=== PATIENT | female | born 1960 | race African-American/Black ===

== ENCOUNTER 2016-09-26 08:10 | Emergency (ER) | payer MEDICAID ==
[~2016-09-26] VITALS: Ht 167.6 cm; Wt 148.0 kg
[~2016-09-26 08:10] MED LIST: ALBU18HF2 IH; AMLO2.5T45 PO; ASPI-1035 PO; CYCL5TAB PO; DOCU-138 PO; FOLI-43 PO; HYDR-519 PO; IPRA3AMP IH; IPRA4AER IH; KEPP500 PO; LIP40 PO; LORA10TA7 PO; MELO-58 PO; MORP30TA54 PO; MORP30TA66 PO; MULT-1116 PO; OMEP20CA4 PO; PANT40TA4 PO; PHEN100C4 PO; POTA20TA75 PO
[2016-09-26] MEDS ORDERED: MORPHINE SULFATE 4 MG/ML CPJ (NOT FOR IM USE) IV STA (09:31)
[2016-09-26] MEDS ORDERED: ONDANSETRON HCL 4MG/2ML VIAL IV STA (09:31)
[2016-09-26] MEDS ORDERED: SODIUM CHLORIDE 0.9% 1,000 ML IV ONE (09:31)
[2016-09-26 09:57] LABS: BASOPHILS % 0.9 % (0.0-2.0); EOSINOPHILS % 3.7 % (0.0-5.0); HEMATOCRIT. 43.3 % (36.0-48.0); HEMOGLOBIN. 13.9 g/dL (12.0-16.0); LYMPHOCYTES % 33.8 % (20.0-50.0); MEAN CORPUSCULAR HEMOGLOBIN 27.2 pg (28.0-32.0); MEAN CORPUSCULAR HGB CONC 32.2 g/dL (31.0-37.0); MEAN CORPUSCULAR VOLUME 84.3 fL (81.0-99.0); MEAN PLATELET VOLUME 9.3 fl (7.4-10.4); MONOCYTES % 9.6 % (2.0-8.0); PLATELET 198 x1000/uL (130-400); RED BLOOD CELL COUNT 5.13 mill/uL (4.2-5.4); RED CELL DISTRIBUTION WIDTH 16.5 % (11.6-14.6); WHITE BLOOD COUNT 5.1 x1000/uL (4.5-11.0)
[2016-09-26 10:05] LABS: INR 1.1; PROTHROMBIN TIME 11.2 sec
[2016-09-26 10:14] LABS: ALANINE AMINOTRANSFERASE 20 IU/L (13-61); ALBUMIN 3.7 g/dL (3.4-5.0); ANION GAP 12; CALCIUM 8.9 mg/dL (8.5-10.1); CARBON DIOXIDE 27 mEq/L (21-32); CHLORIDE 109 mEq/L (98-107); INDEX HEMOLYSI 1 (1-3); INDEX ICTERIC 1 (1-4); INDEX LIPEMIC 1 (1-3); LIPASE 104 IU/L (73-393); PHENYTOIN 11.4 ug/mL (10-20); TROPONIN I < 0.02 ng/mL (0.00-0.04); UREA NITROGEN BLOOD 8 mg/dL (7-21); eGFR > 60 mL/min (>60)
[2016-09-26 11:11] LABS: CLARITY URINE CLEAR (CLEAR); COLOR URINE YELLOW (YELLOW); GLUCOSE URINE NEGATIVE (NEGATIVE); KETONES URINE NEGATIVE (NEGATIVE); LEUKOCYTE ESTERASE URINE NEGATIVE (NEGATIVE); NITRITE URINE POSITIVE (NEGATIVE); OCCULT BLOOD URINE NEGATIVE (NEGATIVE); PROTEIN URINE NEGATIVE (NEGATIVE); UROBILINOGEN URINE 0.2 E.U./dL (0.2-1.0)
[2016-09-26] MEDS ORDERED: LEVOFLOXACIN 500MG TABLET PO ONE (11:15)
[2016-09-26 11:27] LABS: BACTERIA URINE 3+; RBC URINE NONE SEEN /hpf (0-2); SQUAMOUS EPITHELIAL CELL URINE 2+ /lpf (RARE/1+); WBC URINE 0-2 /hpf (0-2)
[2016-09-26] MEDS ORDERED: PHENAZOPYRIDINE HCL 200MG TABLET PO ONE (11:45)
[2016-09-26 12:02] VITALS: BP 124/76
== END 2016-09-26 12:09 | disposition home or self-care (01) ==
LOC: ER 09:32
DX: N39.0 Urinary tract infection, site not specified (principal); I10 Essential (primary) hypertension; J44.9 Chronic obstructive pulmonary disease, unspecified; G40.909 Epilepsy, unspecified, not intractable, without status epilepticus; Z88.0 Allergy status to penicillin; I25.10 Atherosclerotic heart disease of native coronary artery without angina pectoris; Z90.710 Acquired absence of both cervix and uterus; Z95.0 Presence of cardiac pacemaker; Z90.49 Acquired absence of other specified parts of digestive tract; Z96.659 Presence of unspecified artificial knee joint; Z88.3 Allergy status to other anti-infective agents; Z91.018 Allergy to other foods
CPT/HCPCS: 36415; 71010; 74176; 80053; 80185; 81001; 83690; 84484; 85025; 85610; 85730; 87077; 87086; 87186; 93005; 96361; 96374; 96375; 99285; J2270; J2405; J7030; Z7610

== ENCOUNTER 2016-11-02 09:10 | Emergency (ER) | payer MEDICAID ==
[~2016-11-02] VITALS: Ht 165.1 cm; Wt 146.0 kg
[2016-11-02] MEDS ORDERED: TETANUS, DIPHTHERIA, PERTUSSIS VAC/PF 0.5ML (>7YR OLD) IM ONE (12:30)
[2016-11-02] MEDS ORDERED: BACITRACIN ZINC OINT UDPKT TOP ONE (12:30)
[2016-11-02] MEDS ORDERED: LIDOCAINE HCL 1% 20ML VIAL (Pyxis) INJ MC ONE (12:30)
[2016-11-02 12:51] LABS: BASOPHILS % 0.3 % (0.0-2.0); EOSINOPHILS % 2.9 % (0.0-5.0); HEMATOCRIT. 38.5 % (36.0-48.0); HEMOGLOBIN. 12.4 g/dL (12.0-16.0); LYMPHOCYTES % 40.6 % (20.0-50.0); MEAN CORPUSCULAR HEMOGLOBIN 26.8 pg (28.0-32.0); MEAN CORPUSCULAR HGB CONC 32.2 g/dL (31.0-37.0); MEAN CORPUSCULAR VOLUME 83.3 fL (81.0-99.0); MEAN PLATELET VOLUME 8.7 fl (7.4-10.4); MONOCYTES % 9.6 % (2.0-8.0); NEUTROPHILS % 46.6 % (40.0-76.0); PLATELET 199 x1000/uL (130-400); RED BLOOD CELL COUNT 4.62 mill/uL (4.2-5.4); RED CELL DISTRIBUTION WIDTH 16.6 % (11.6-14.6); WHITE BLOOD COUNT 5.3 x1000/uL (4.5-11.0)
[2016-11-02 12:55] VITALS: BP 123/76
== END 2016-11-02 13:31 | disposition home or self-care (01) ==
LOC: ER 10:16
DX: K64.5 Perianal venous thrombosis (principal); Z88.0 Allergy status to penicillin; Z88.1 Allergy status to other antibiotic agents; Z79.899 Other long term (current) drug therapy; Z88.8 Allergy status to other drugs, medicaments and biological substances; Z79.82 Long term (current) use of aspirin; I11.9 Hypertensive heart disease without heart failure; J44.9 Chronic obstructive pulmonary disease, unspecified; Z23 Encounter for immunization
CPT/HCPCS: 36415; 46320; 85025; 90471; 90715; 99284; J3490; Z7610; 99283

== ENCOUNTER 2016-12-09 04:01 | Emergency (ER) | payer MEDICAID ==
[~2016-12-09] VITALS: Ht 167.6 cm; Wt 147.0 kg
[2016-12-09] MEDS ORDERED: IPRATROPIUM BROMIDE (0.02%) 0.5MG/2.5ML NEB HHN STA (06:24)
[2016-12-09] MEDS ORDERED: METHYLPREDNISOLONE SOD SUCC 125 MG/2 ML VIAL IV ONE (06:30)
[2016-12-09] MEDS ORDERED: FUROSEMIDE 40MG/4ML VIAL IVP ONE (06:30)
[2016-12-09] MEDS ORDERED: IPRATROPIUM/ALBUTEROL 0.5-3(2.5)MG/3ML NEB ONE (06:44)
[2016-12-09 06:55] LABS: BASOPHILS % 0.8 % (0.0-2.0); EOSINOPHILS % 1.6 % (0.0-5.0); HEMOGLOBIN. 11.7 g/dL (12.0-16.0); LYMPHOCYTES % 27.8 % (20.0-50.0); MEAN CORPUSCULAR HEMOGLOBIN 27.2 pg (28.0-32.0); MEAN PLATELET VOLUME 8.4 fl (7.4-10.4); NEUTROPHILS % 59.8 % (40.0-76.0); PLATELET 212 x1000/uL (130-400); RED BLOOD CELL COUNT 4.28 mill/uL (4.2-5.4); RED CELL DISTRIBUTION WIDTH 16.7 % (11.6-14.6)
[2016-12-09 07:00] LABS: CHLORIDE 107 mEq/L (98-107)
[2016-12-09 07:03] LABS: PROTHROMBIN TIME 10.4 sec
[2016-12-09 07:11] LABS: CARBON DIOXIDE 28 mEq/L (21-32); PHENYTOIN 8.6 ug/mL (10-20); TROPONIN I < 0.02 ng/mL (0.00-0.04)
[2016-12-09] MEDS ORDERED: ACETAMINOPHEN 325MG TABLET PO ONE (07:15)
[2016-12-09] MEDS: ALBUTEROL (0.083%) 2.5MG/3ML NEB HHN SCH ×2 (07:24→07:55)
[2016-12-09] MEDS ORDERED: MORPHINE SULFATE 2 MG/ML CPJ (NOT FOR IM USE) IV ONE (09:15)
[2016-12-09] MEDS ORDERED: ALBUTEROL (0.083%) 2.5MG/3ML NEB HHN ONE (09:15)
[2016-12-09 10:20] VITALS: BP 90/60
== END 2016-12-09 10:24 | disposition home or self-care (01) ==
LOC: ER 04:01
DX: I11.0 Hypertensive heart disease with heart failure (principal); I50.9 Heart failure, unspecified; J44.9 Chronic obstructive pulmonary disease, unspecified; Z79.899 Other long term (current) drug therapy; Z88.0 Allergy status to penicillin; Z88.1 Allergy status to other antibiotic agents; Z91.018 Allergy to other foods; Z79.82 Long term (current) use of aspirin; Z90.49 Acquired absence of other specified parts of digestive tract; Z95.0 Presence of cardiac pacemaker
CPT/HCPCS: 36415; 71010; 80053; 80185; 83880; 84484; 85025; 85610; 93005; 94640; 96374; 96375; 99285; J1940; J2270; J2930; J7611; Z7610; J7620

== ENCOUNTER 2016-12-27 02:46 | Emergency (ER) | payer MEDICAID ==
[~2016-12-27] VITALS: Ht 167.6 cm; Wt 145.0 kg
[~2016-12-27 02:46] MED LIST changes: -ASPI-1035 PO; +ASPI-1158 PO
[2016-12-27 03:48] LABS: PROTHROMBIN TIME 10.7 sec
[2016-12-27 03:49] LABS: BASOPHILS % 1.2 % (0.0-2.0); EOSINOPHILS % 1.8 % (0.0-5.0); HEMATOCRIT. 41.4 % (36.0-48.0); HEMOGLOBIN. 13.7 g/dL (12.0-16.0); LYMPHOCYTES % 36.1 % (20.0-50.0); MEAN CORPUSCULAR HEMOGLOBIN 27.9 pg (28.0-32.0); MEAN CORPUSCULAR VOLUME 84.6 fL (81.0-99.0); MEAN PLATELET VOLUME 8.9 fl (7.4-10.4); MONOCYTES % 7.7 % (2.0-8.0); NEUTROPHILS % 53.2 % (40.0-76.0); PLATELET 219 x1000/uL (130-400); RED BLOOD CELL COUNT 4.89 mill/uL (4.2-5.4); RED CELL DISTRIBUTION WIDTH 16.5 % (11.6-14.6)
[2016-12-27 03:55] LABS: CARBON DIOXIDE 24 mEq/L (21-32); CHLORIDE 110 mEq/L (98-107); TROPONIN I < 0.02 ng/mL (0.00-0.04)
[2016-12-27] MEDS ORDERED: IBUPROFEN 600MG TABLET PO ONE (04:45)
[2016-12-27 08:59] VITALS: BP 130/85
== END 2016-12-27 09:01 | disposition home or self-care (01) ==
LOC: ER 02:46
DX: R07.89 Other chest pain (principal); I50.9 Heart failure, unspecified; J44.9 Chronic obstructive pulmonary disease, unspecified; I10 Essential (primary) hypertension; Z90.710 Acquired absence of both cervix and uterus; Z96.659 Presence of unspecified artificial knee joint; Z90.49 Acquired absence of other specified parts of digestive tract; Z95.810 Presence of automatic (implantable) cardiac defibrillator; Z88.3 Allergy status to other anti-infective agents; Z88.0 Allergy status to penicillin; Z91.018 Allergy to other foods
CPT/HCPCS: 36415; 71010; 80053; 83880; 84484; 85025; 85610; 93005; 99285; Z7610

== ENCOUNTER 2017-01-30 05:05 | Emergency (ER) | payer MEDICAID ==
[~2017-01-30] VITALS: Ht 167.6 cm; Wt 143.0 kg
[~2017-01-30 05:05] MED LIST changes: -IPRA3AMP IH; +IPRA3AMP9 IH; +LEVO500T2 PO; -MELO-58 PO; +METH4TAB17 PO; -MORP30TA66 PO; +POTA20TA12 PO; -POTA20TA75 PO
[2017-01-30] MEDS ORDERED: MORPHINE SULFATE 10 MG/ML CPJ IM ONE (05:30)
[2017-01-30] MEDS ORDERED: KETOROLAC 30MG/ML VIAL IM ONE (05:30)
[2017-01-30] MEDS ORDERED: ONDANSETRON HCL 4MG/2ML VIAL IM ONE (05:30)
[2017-01-30 06:00] VITALS: BP 139/69
[2017-02-28] MEDS ORDERED: AMLO2.5T45 PO (14:34)
[2017-02-28] MEDS ORDERED: ALBU18HF2 IH (14:34)
[2017-02-28] MEDS ORDERED: PHEN100C4 PO (14:34)
[2017-02-28] MEDS ORDERED: IPRA3AMP9 IH (14:34)
[2017-02-28] MEDS ORDERED: KEPP500 PO (14:34)
[2017-02-28] MEDS ORDERED: METH4TAB17 PO (14:34)
[2017-02-28] MEDS ORDERED: LIP40 PO (14:34)
[2017-07-16] MEDS ORDERED: P20 PO (11:49)
[2017-07-16] MEDS ORDERED: GUAI-858 PO (11:49)
[2017-07-16] MEDS ORDERED: AZIT500T2 PO (11:49)
== END 2017-01-30 07:06 | disposition home or self-care (01) ==
LOC: ER 05:05
DX: R51 Headache (principal); I11.0 Hypertensive heart disease with heart failure; I50.9 Heart failure, unspecified; I25.10 Atherosclerotic heart disease of native coronary artery without angina pectoris; Z72.0 Tobacco use; Z88.0 Allergy status to penicillin; Z88.1 Allergy status to other antibiotic agents; Z88.3 Allergy status to other anti-infective agents; Z91.018 Allergy to other foods; Z91.048 Other nonmedicinal substance allergy status; Z79.899 Other long term (current) drug therapy; Z98.890 Other specified postprocedural states
CPT/HCPCS: 96372; 99284; J1885; J2270; J2405; Z7610

== ENCOUNTER 2017-02-05 10:20 | Emergency (ER) | payer MEDICAID ==
[~2017-02-05] VITALS: Ht 167.6 cm; Wt 147.0 kg
[~2017-02-05 10:20] MED LIST changes: +IPRA3AMP IH; -IPRA3AMP9 IH; +LEVO500T15 PO; -LEVO500T2 PO; -POTA20TA12 PO; +POTA20TA75 PO
[2017-02-05] MEDS ORDERED: SODIUM CHLORIDE 0.9% 1,000 ML IV ONE (10:46)
[2017-02-05] MEDS ORDERED: ONDANSETRON HCL 4MG/2ML VIAL IV ONE (11:00)
[2017-02-05] MEDS ORDERED: MORPHINE SULFATE 2 MG/ML CPJ (NOT FOR IM USE) IV ONE (11:00)
[2017-02-05 11:04] LABS: EOSINOPHILS % 4.3 % (0.0-5.0); HEMATOCRIT. 37.5 % (36.0-48.0); HEMOGLOBIN. 12.3 g/dL (12.0-16.0); MEAN CORPUSCULAR HEMOGLOBIN 27.9 pg (28.0-32.0); MEAN CORPUSCULAR VOLUME 85.1 fL (81.0-99.0); NEUTROPHILS % 47.7 % (40.0-76.0); PLATELET 185 x1000/uL (130-400); RED BLOOD CELL COUNT 4.41 mill/uL (4.2-5.4); RED CELL DISTRIBUTION WIDTH 16.7 % (11.6-14.6)
[2017-02-05 11:10] LABS: CHLORIDE 108 mEq/L (98-107)
[2017-02-05 11:16] LABS: CARBON DIOXIDE 25 mEq/L (21-32)
[2017-02-05] MEDS ORDERED: MORPHINE SULFATE 4 MG/ML CPJ (NOT FOR IM USE) IV ONE (13:30)
[2017-02-05 13:45] VITALS: BP 112/55
== END 2017-02-05 15:04 | disposition home or self-care (01) ==
LOC: ER 10:20
DX: R51 Headache (principal); I11.0 Hypertensive heart disease with heart failure; I50.9 Heart failure, unspecified; J44.9 Chronic obstructive pulmonary disease, unspecified; Z86.79 Personal history of other diseases of the circulatory system; Z88.0 Allergy status to penicillin; Z88.1 Allergy status to other antibiotic agents; Z91.048 Other nonmedicinal substance allergy status; Z90.49 Acquired absence of other specified parts of digestive tract; Z90.710 Acquired absence of both cervix and uterus; Z96.659 Presence of unspecified artificial knee joint
CPT/HCPCS: 36415; 70450; 80048; 85025; 96361; 96374; 96375; 96376; 99285; J2270; J2405; J7030; Z7610

== ENCOUNTER 2017-02-10 08:06 | Emergency (ER) | payer MEDICAID ==
[~2017-02-10] VITALS: Ht 167.6 cm; Wt 148.0 kg
[2017-02-10] MEDS ORDERED: MORPHINE SULFATE 4 MG/ML CPJ (NOT FOR IM USE) IV ONE (10:30)
[2017-02-10] MEDS ORDERED: MORPHINE SULFATE 10 MG/ML CPJ IM ONE (10:30)
[2017-02-10] MEDS ORDERED: ONDANSETRON HCL 4MG/2ML VIAL IV ONE (10:30)
[2017-02-10 13:00] VITALS: BP 122/73
== END 2017-02-10 13:41 | disposition home or self-care (01) ==
LOC: ER 08:06
DX: R51 Headache (principal); I50.9 Heart failure, unspecified; I11.0 Hypertensive heart disease with heart failure; E78.00 Pure hypercholesterolemia, unspecified; Z95.0 Presence of cardiac pacemaker; Z90.49 Acquired absence of other specified parts of digestive tract; Z90.710 Acquired absence of both cervix and uterus; Z96.659 Presence of unspecified artificial knee joint; Z88.0 Allergy status to penicillin; Z79.82 Long term (current) use of aspirin; Z88.1 Allergy status to other antibiotic agents; Z91.018 Allergy to other foods; Z91.048 Other nonmedicinal substance allergy status
CPT/HCPCS: 70450; 96374; 96375; 99284; J2270; J2405; J7040; Z7610

== ENCOUNTER 2017-04-04 08:54 | Inpatient (IN) | payer MEDICAID ==
[2017-04-04] VITALS (7 sets, daily range): BP systolic 97–149; BP diastolic 60–86
[~2017-04-04] VITALS: Ht 167.6 cm; Wt 147.6 kg
[~2017-04-04 08:54] MED LIST changes: -IPRA3AMP IH; +IPRA3AMP9 IH; -LEVO500T15 PO; +POTA20TA12 PO; -POTA20TA75 PO
[2017-04-04] MEDS ORDERED: PREDNISONE 20MG TABLET PO STA (10:12)
[2017-04-04] MEDS ORDERED: MORPHINE SULFATE 10 MG/ML CPJ IM ONE (10:15)
[2017-04-04] MEDS ORDERED: IPRATROPIUM/ALBUTEROL 0.5-3(2.5)MG/3ML NEB HHN ONE ×2 (10:30→12:30)
[2017-04-04 10:49] LABS: BASOPHILS % 0.9 % (0.0-2.0); EOSINOPHILS % 1.8 % (0.0-5.0); HEMATOCRIT. 40.7 % (36.0-48.0); HEMOGLOBIN. 13.3 g/dL (12.0-16.0); MEAN CORPUSCULAR HEMOGLOBIN 27.9 pg (28.0-32.0); MEAN CORPUSCULAR VOLUME 85.2 fL (81.0-99.0); MEAN PLATELET VOLUME 9.1 fl (7.4-10.4); MONOCYTES % 7.7 % (2.0-8.0); NEUTROPHILS % 57.6 % (40.0-76.0); PLATELET 214 x1000/uL (130-400); RED BLOOD CELL COUNT 4.78 mill/uL (4.2-5.4); RED CELL DISTRIBUTION WIDTH 15.6 % (11.6-14.6)
[2017-04-04 11:00] LABS: D-DIMER 0.98 mg/L FEU (<0.50); INR 1.1
[2017-04-04 11:06] LABS: CARBON DIOXIDE 27 mEq/L (21-32); CHLORIDE 111 mEq/L (98-107); TROPONIN I 0.04 ng/mL (0.00-0.04)
[2017-04-04] MEDS ORDERED: FUROSEMIDE 40MG/4ML VIAL IVP ONE (12:30)
[2017-04-04] MEDS ORDERED: SODIUM BICARBONATE 4.2% 5 MEQ/10 ML DISP.SYRIN IV ONE (12:43)
[2017-04-04] MEDS ORDERED: LIDOCAINE HCL 1% 20ML VIAL (Pyxis) INJ ONE (12:43)
[2017-04-04] MEDS ORDERED: MORPHINE SULFATE 4 MG/ML CPJ (NOT FOR IM USE) IV ONE (13:15)
[2017-04-04] MEDS ORDERED: ASPIRIN 81MG EC TABLET PO NR (13:15)
[2017-04-04] MEDS ORDERED: DOCU-138 PO (14:43)
[2017-04-04] MEDS ORDERED: GUAIFENESIN 200MG/10ML SUGAR FREE UDC PO PRN (15:00)
[2017-04-04] MEDS ORDERED: MAGNESIUM/ALUMINUM HYDROXIDE/SIMETHICONE 30ML UDC PO PRN (15:00)
[2017-04-04] MEDS ORDERED: CLONIDINE 0.1MG TABLET PO PRN (15:00)
[2017-04-04] MEDS ORDERED: DIPHENHYDRAMINE 50MG/ML VIAL IV PRN (15:00)
[2017-04-04] MEDS ORDERED: IPRATROPIUM/ALBUTEROL 0.5-3(2.5)MG/3ML NEB INH PRN (15:00)
[2017-04-04] MEDS ORDERED: ACETAMINOPHEN 325MG TABLET PO PRN (15:00)
[2017-04-04] MEDS ORDERED: ONDANSETRON HCL 4MG/2ML VIAL IV PRN (15:00)
[2017-04-04] MEDS: DOCUSATE SODIUM 250MG CAPSULE PO SCH (16:25)
[2017-04-04] MEDS: LEVETIRACETAM 500MG TABLET PO SCH (16:25)
[2017-04-04] MEDS: PHENYTOIN SODIUM EXTENDED 100MG CAPSULE PO SCH (16:26)
[2017-04-04] MEDS: FUROSEMIDE 40MG/4ML VIAL IVP SCH (16:27)
[2017-04-04] MEDS: ENOXAPARIN 40MG/0.4ML SYR SUBCUT SCH (16:27)
[2017-04-04] MEDS: BUDESONIDE 0.5MG/2ML NEB HHN SCH ×2 (17:00→21:12)
[2017-04-04] MEDS ORDERED: MORPHINE SULFATE 30MG TABLET SR PO SCH (17:00)
[2017-04-04] MEDS: IPRATROPIUM/ALBUTEROL 0.5-3(2.5)MG/3ML NEB HHN SCH ×2 (17:00→21:12)
[2017-04-04 18:55] LABS: CLARITY URINE CLEAR (CLEAR); COLOR URINE YELLOW (YELLOW); GLUCOSE URINE NEGATIVE (NEGATIVE); KETONES URINE NEGATIVE (NEGATIVE); LEUKOCYTE ESTERASE URINE NEGATIVE (NEGATIVE); NITRITE URINE NEGATIVE (NEGATIVE); OCCULT BLOOD URINE NEGATIVE (NEGATIVE); PROTEIN URINE NEGATIVE (NEGATIVE); SPECIFIC GRAVITY URINE 1.013 (1.005-1.030); UROBILINOGEN URINE 0.2 E.U./dL (0.2-1.0)
[2017-04-04 19:08] LABS: *AMPHETAMINES SCREEN URINE NEGATIVE (NEGATIVE); *BARBITURATES SCREEN URINE NEGATIVE (NEGATIVE); *BENZODIAZEPINES SCREEN URINE NEGATIVE (NEGATIVE); *COCAINE SCREEN URINE NEGATIVE (NEGATIVE); CANNABINOID URINE SCREEN NEGATIVE (NEGATIVE); METHADONE URINE SCREEN NEGATIVE (NEGATIVE); OPIATES URINE SCREEN PRESUMTIVE POSITIVE (NEGATIVE); PHENCYCLIDINE URINE SCREEN NEGATIVE (NEGATIVE)
[2017-04-04] MEDS ORDERED: ATORVASTATIN CALCIUM 40MG TABLET PO SCH ×2 (21:00)
[2017-04-04] MEDS: SODIUM CHLORIDE 0.9% INJ 3ML FLUSH IVF SCH (22:08)
[2017-04-04] MEDS: MORPHINE SULFATE 30MG TABLET SR PO SCH (22:20)
[2017-04-05] VITALS (10 sets, daily range): BP systolic 93–144; BP diastolic 35–95
[2017-04-05] MEDS: IPRATROPIUM/ALBUTEROL 0.5-3(2.5)MG/3ML NEB HHN SCH ×4 (01:15→11:37)
[2017-04-05] MEDS: FUROSEMIDE 40MG/4ML VIAL IVP SCH (06:15)
[2017-04-05] MEDS: SODIUM CHLORIDE 0.9% INJ 3ML FLUSH IVF SCH ×2 (06:15→14:30)
[2017-04-05] MEDS: ENOXAPARIN 40MG/0.4ML SYR SUBCUT SCH (06:16)
[2017-04-05] MEDS ORDERED: OMEPRAZOLE 20MG CAPSULE EXTENDED RELEASE PO SCH ×2 (06:50→09:00)
[2017-04-05] MEDS: BUDESONIDE 0.5MG/2ML NEB HHN SCH (07:32)
[2017-04-05 07:38] LABS: CARBON DIOXIDE 28 mEq/L (21-32); CHLORIDE 107 mEq/L (98-107); TROPONIN I 0.02 ng/mL (0.00-0.04)
[2017-04-05 08:41] LABS: BASOPHILS % 0.7 % (0.0-2.0); EOSINOPHILS % 0.8 % (0.0-5.0); HEMATOCRIT. 37.9 % (36.0-48.0); HEMOGLOBIN. 12.2 g/dL (12.0-16.0); LYMPHOCYTES % 36.3 % (20.0-50.0); MEAN CORPUSCULAR HEMOGLOBIN 27.7 pg (28.0-32.0); MEAN CORPUSCULAR VOLUME 86.2 fL (81.0-99.0); MEAN PLATELET VOLUME 9.5 fl (7.4-10.4); MONOCYTES % 9.7 % (2.0-8.0); NEUTROPHILS % 52.5 % (40.0-76.0); PLATELET 202 x1000/uL (130-400); RED BLOOD CELL COUNT 4.39 mill/uL (4.2-5.4)
[2017-04-05] MEDS ORDERED: AMLODIPINE 2.5MG TABLET PO SCH ×2 (09:00)
[2017-04-05] MEDS ORDERED: POTASSIUM CHLORIDE 20MEQ TABLET SR PO SCH (09:00)
[2017-04-05] MEDS ORDERED: FOLIC ACID 1MG TABLET PO SCH (09:00)
[2017-04-05] MEDS ORDERED: ASPIRIN 81MG EC TABLET PO SCH (09:00)
[2017-04-05] MEDS ORDERED: LORATADINE 10MG TABLET PO SCH (09:00)
[2017-04-05] MEDS: LEVETIRACETAM 500MG TABLET PO SCH (09:06)
[2017-04-05] MEDS: DOCUSATE SODIUM 250MG CAPSULE PO SCH (09:06)
[2017-04-05] MEDS: PHENYTOIN SODIUM EXTENDED 100MG CAPSULE PO SCH (09:06)
[2017-04-05] MEDS: MORPHINE SULFATE 30MG TABLET SR PO SCH (09:07)
[2017-04-05] MEDS ORDERED: SPIRONOLACTONE 25MG TABLET PO SCH (10:00)
[2017-04-05] MEDS ORDERED: METHYLPREDNISOLONE SOD SUCC 125 MG/2 ML VIAL IV SCH (14:00)
[2017-04-05] MEDS ORDERED: FUROSEMIDE 40MG/4ML VIAL IVP SCH (17:15)
== END 2017-04-05 14:45 | disposition short-term general hospital (02) | DRG 133 ==
LOC: ER 09:48 → ENRESERV 12:52 → 3WST 12:55 → EDBEDREQTM 13:00 → EDBEDREQ 13:00
PROVIDERS: ADMIT Internal Medicine; ATTEND Internal Medicine
PROC: 02HV33Z Insertion of Infusion Device into Superior Vena Cava, Percutaneous Approach (ICD-10-PCS; principal; 2017-04-04)
PROC: B548ZZA Ultrasonography of Superior Vena Cava, Guidance (ICD-10-PCS; 2017-04-04)
DX: J96.00 Acute respiratory failure, unspecified whether with hypoxia or hypercapnia (principal); I50.43 Acute on chronic combined systolic (congestive) and diastolic (congestive) heart failure; I67.1 Cerebral aneurysm, nonruptured; I42.0 Dilated cardiomyopathy; Z68.43 Body mass index [BMI] 50.0-59.9, adult; J44.1 Chronic obstructive pulmonary disease with (acute) exacerbation; E66.01 Morbid (severe) obesity due to excess calories; I11.0 Hypertensive heart disease with heart failure; Z96.653 Presence of artificial knee joint, bilateral; K21.9 Gastro-esophageal reflux disease without esophagitis; I25.10 Atherosclerotic heart disease of native coronary artery without angina pectoris; G47.33 Obstructive sleep apnea (adult) (pediatric); E78.5 Hyperlipidemia, unspecified; E78.00 Pure hypercholesterolemia, unspecified; Z82.49 Family history of ischemic heart disease and other diseases of the circulatory system; Z83.3 Family history of diabetes mellitus; Z86.73 Personal history of transient ischemic attack (TIA), and cerebral infarction without residual deficits; Z87.891 Personal history of nicotine dependence; Z90.710 Acquired absence of both cervix and uterus; Z95.810 Presence of automatic (implantable) cardiac defibrillator; Z88.0 Allergy status to penicillin; Z88.1 Allergy status to other antibiotic agents; Z79.51 Long term (current) use of inhaled steroids; Z79.899 Other long term (current) drug therapy; Z79.82 Long term (current) use of aspirin; Z90.49 Acquired absence of other specified parts of digestive tract
CPT/HCPCS: 36415; 36569; 71010; 76937; 78582; 80048; 80053; 80305; 81003; 83605; 83735; 83880; 84484; 85025; 85379; 85610; 85730; 87040; 93005; 93970; 94640; 94660; 94664; 96374; 96375; 96376; 99285; A9558; C1725; J1650; J1940; J2270; J2930; J3490; J7512; J7620; J7626

== ENCOUNTER 2017-04-16 08:53 | Inpatient (IN) | payer MEDICAID ==
[~2017-04-16] VITALS: Ht 168.9 cm; Wt 141.1 kg
[~2017-04-16 08:53] MED LIST changes: -HYDR-519 PO; -METH4TAB17 PO; -PANT40TA4 PO
[2017-04-16] MEDS ORDERED: METHYLPREDNISOLONE SOD SUCC 125 MG/2 ML VIAL IV STA (09:48)
[2017-04-16] MEDS ORDERED: IPRATROPIUM/ALBUTEROL 0.5-3(2.5)MG/3ML NEB HHN ONE (10:00)
[2017-04-16 10:31] LABS: BASOPHILS % 1.1 % (0.0-2.0); EOSINOPHILS % 2.3 % (0.0-5.0); HEMATOCRIT. 39.6 % (36.0-48.0); HEMOGLOBIN. 12.9 g/dL (12.0-16.0); LYMPHOCYTES % 29.6 % (20.0-50.0); MEAN CORPUSCULAR VOLUME 85.8 fL (81.0-99.0); MEAN PLATELET VOLUME 9.2 fl (7.4-10.4); MONOCYTES % 8.4 % (2.0-8.0); NEUTROPHILS % 58.6 % (40.0-76.0); PLATELET 249 x1000/uL (130-400); RED BLOOD CELL COUNT 4.62 mill/uL (4.2-5.4); RED CELL DISTRIBUTION WIDTH 15.1 % (11.6-14.6)
[2017-04-16 10:35] LABS: PROTHROMBIN TIME 10.7 sec (9.4-11.6)
[2017-04-16] MEDS ORDERED: IPRATROPIUM/ALBUTEROL 0.5-3(2.5)MG/3ML NEB ONE ×2 (10:43→12:19)
[2017-04-16 10:44] LABS: CARBON DIOXIDE 23 mEq/L (21-32); CHLORIDE 112 mEq/L (98-107); TROPONIN I 0.03 ng/mL (0.00-0.04)
[2017-04-16] MEDS ORDERED: ONDANSETRON HCL 4MG/2ML VIAL IV ONE (11:30)
[2017-04-16] MEDS ORDERED: MORPHINE SULFATE 4 MG/ML CPJ (NOT FOR IM USE) IV ONE (11:30)
[2017-04-16] MEDS ORDERED: CLONIDINE 0.1MG TABLET PO PRN (14:15)
[2017-04-16] MEDS ORDERED: DIPHENHYDRAMINE 50MG/ML VIAL IV PRN (14:15)
[2017-04-16] MEDS ORDERED: GUAIFENESIN 200MG/10ML SUGAR FREE UDC PO PRN (14:15)
[2017-04-16] MEDS ORDERED: ACETAMINOPHEN 325MG TABLET PO PRN (14:15)
[2017-04-16] MEDS ORDERED: ONDANSETRON HCL 4MG/2ML VIAL IV PRN (14:15)
[2017-04-16] MEDS ORDERED: MAGNESIUM/ALUMINUM HYDROXIDE/SIMETHICONE 30ML UDC PO PRN (14:15)
[2017-04-16 14:26] VITALS: BP 116/82
[2017-04-16] MEDS ORDERED: IPRATROPIUM/ALBUTEROL 0.5-3(2.5)MG/3ML NEB INH PRN (15:00)
[2017-04-16] MEDS ORDERED: ALBU18HF2 IH (15:45)
[2017-04-16 16:30] VITALS: BP 100/64
[2017-04-16] MEDS: FUROSEMIDE 40MG/4ML VIAL IV SCH (16:43)
[2017-04-16] MEDS: ENOXAPARIN 40MG/0.4ML SYR SUBCUT SCH ×2 (16:44→21:23)
[2017-04-16] MEDS: METHYLPREDNISOLONE SOD SUCC 40 MG/ML VIAL IV SCH (16:44)
[2017-04-16] MEDS: HYDROCODONE/ACETAMINOPHEN 5/325MG TABLET PO PRN ×2 (16:54→21:22)
[2017-04-16] MEDS ORDERED: IPRATROPIUM/ALBUTEROL 0.5-3(2.5)MG/3ML NEB HHN PRN (17:00)
[2017-04-16] MEDS ORDERED: ALBUTEROL 6.7GM HFA INHALER INH SCH (17:00)
[2017-04-16] MEDS ORDERED: CYCLOBENZAPRINE HCL 5 MG PO SCH (17:00)
[2017-04-16] MEDS: IPRATROPIUM/ALBUTEROL 0.5-3(2.5)MG/3ML NEB INH SCH ×3 (17:44→21:54)
[2017-04-16] MEDS: LEVETIRACETAM 500MG TABLET PO SCH (18:18)
[2017-04-16] MEDS: DOCUSATE SODIUM 250MG CAPSULE PO SCH (18:18)
[2017-04-16] MEDS: CYCLOBENZAPRINE 10MG TABLET PO SCH (18:19)
[2017-04-16] MEDS: PHENYTOIN SODIUM EXTENDED 100MG CAPSULE PO SCH (18:19)
[2017-04-16] MEDS: MORPHINE SULFATE 30MG TABLET SR PO SCH (18:24)
[2017-04-16 20:00] VITALS: BP 109/60
[2017-04-16] MEDS ORDERED: ALBUTEROL (0.083%) 2.5MG/3ML NEB HHN SCH (20:00)
[2017-04-16] MEDS ORDERED: ATORVASTATIN CALCIUM 40MG TABLET PO SCH (21:00)
[2017-04-16 23:23] LABS: CREATINE KINASE MB FRACTION 1.1 ng/mL (0.5-3.6); TROPONIN I 0.02 ng/mL (0.00-0.04)
[2017-04-17] VITALS: BP 106/66
[2017-04-17] MEDS: METHYLPREDNISOLONE SOD SUCC 40 MG/ML VIAL IV SCH ×3 (00:44→16:08)
[2017-04-17 04:00] VITALS: BP 117/69
[2017-04-17] MEDS: IPRATROPIUM/ALBUTEROL 0.5-3(2.5)MG/3ML NEB INH SCH ×4 (04:12→15:30)
[2017-04-17] MEDS: MORPHINE SULFATE 30MG TABLET SR PO SCH ×2 (05:49→16:09)
[2017-04-17] MEDS ORDERED: OMEPRAZOLE 20MG CAPSULE EXTENDED RELEASE PO SCH (06:45)
[2017-04-17 07:36] LABS: BASOPHILS % 0.2 % (0.0-2.0); HEMATOCRIT. 35.3 % (36.0-48.0); HEMOGLOBIN. 11.5 g/dL (12.0-16.0); LYMPHOCYTES % 13.3 % (20.0-50.0); MEAN CORPUSCULAR HEMOGLOBIN 27.8 pg (28.0-32.0); MEAN CORPUSCULAR VOLUME 85.7 fL (81.0-99.0); MEAN PLATELET VOLUME 9.2 fl (7.4-10.4); MONOCYTES % 5.2 % (2.0-8.0); NEUTROPHILS % 81.3 % (40.0-76.0); PLATELET 220 x1000/uL (130-400); RED BLOOD CELL COUNT 4.12 mill/uL (4.2-5.4); RED CELL DISTRIBUTION WIDTH 15.5 % (11.6-14.6)
[2017-04-17 08:00] VITALS: BP 104/55
[2017-04-17 08:03] LABS: CARBON DIOXIDE 26 mEq/L (21-32); CHLORIDE 107 mEq/L (98-107); CREATINE KINASE 78 IU/L (26-192); HDL CHOLESTEROL 64 mg/dL (40-59); LDL CHOLESTEROL 120 mg/dL (5-100); TROPONIN I < 0.02 ng/mL (0.00-0.04)
[2017-04-17] MEDS ORDERED: POTASSIUM CHLORIDE 20MEQ TABLET SR PO SCH (09:00)
[2017-04-17] MEDS ORDERED: AMLODIPINE 2.5MG TABLET PO SCH (09:00)
[2017-04-17] MEDS ORDERED: MEDICATION NOT ON FORMULARY EA (Multivitamin (Multi-Vitamin Daily) 1 EACH) PO SCH (09:00)
[2017-04-17] MEDS: DOCUSATE SODIUM 250MG CAPSULE PO SCH ×2 (09:00→16:09)
[2017-04-17] MEDS ORDERED: MULTIVITAMINS,THER W-MINERALS TABLET PO SCH (09:00)
[2017-04-17] MEDS ORDERED: ASPIRIN 81MG EC TABLET PO SCH (09:00)
[2017-04-17] MEDS ORDERED: LORATADINE 10MG TABLET PO SCH (09:00)
[2017-04-17] MEDS ORDERED: FOLIC ACID 1MG TABLET PO SCH (09:00)
[2017-04-17] MEDS: PHENYTOIN SODIUM EXTENDED 100MG CAPSULE PO SCH ×2 (09:05→16:08)
[2017-04-17] MEDS: ENOXAPARIN 40MG/0.4ML SYR SUBCUT SCH (09:05)
[2017-04-17] MEDS: FUROSEMIDE 40MG/4ML VIAL IV SCH (09:05)
[2017-04-17] MEDS: LEVETIRACETAM 500MG TABLET PO SCH ×2 (09:06→16:08)
[2017-04-17] MEDS: CYCLOBENZAPRINE 10MG TABLET PO SCH ×2 (09:06→16:09)
[2017-04-17] MEDS: DOCUSATE SODIUM 100MG CAPSULE PO PRN ×3 (09:06→16:08)
[2017-04-17 12:00] VITALS: BP 94/58
[2017-04-17] MEDS ORDERED: METOLAZONE 2.5MG TABLET PO NR (12:45)
[2017-04-17] MEDS: HYDROCODONE/ACETAMINOPHEN 5/325MG TABLET PO PRN (13:48)
[2017-04-17 14:47] VITALS: BP 94/58
[2017-04-17 16:00] VITALS: BP 103/72
[2017-04-17] MEDS ORDERED: FUROSEMIDE 40MG/4ML VIAL IV SCH (17:00)
== END 2017-04-17 18:58 | disposition short-term general hospital (02) | DRG 140 ==
LOC: ER 09:06 → 5WST 12:05 → ENRESERV 12:25
PROVIDERS: ADMIT Internal Medicine; ATTEND Internal Medicine
PROC: 02HV33Z Insertion of Infusion Device into Superior Vena Cava, Percutaneous Approach (ICD-10-PCS; principal; 2017-04-16)
PROC: B548ZZA Ultrasonography of Superior Vena Cava, Guidance (ICD-10-PCS; 2017-04-16)
DX: J44.1 Chronic obstructive pulmonary disease with (acute) exacerbation (principal); I50.43 Acute on chronic combined systolic (congestive) and diastolic (congestive) heart failure; E87.2 Acidosis; I42.0 Dilated cardiomyopathy; E87.8 Other disorders of electrolyte and fluid balance, not elsewhere classified; Z68.42 Body mass index [BMI] 45.0-49.9, adult; I11.0 Hypertensive heart disease with heart failure; E66.01 Morbid (severe) obesity due to excess calories; E78.00 Pure hypercholesterolemia, unspecified; E78.5 Hyperlipidemia, unspecified; G40.909 Epilepsy, unspecified, not intractable, without status epilepticus; G47.33 Obstructive sleep apnea (adult) (pediatric); I25.10 Atherosclerotic heart disease of native coronary artery without angina pectoris; I49.3 Ventricular premature depolarization; Z96.651 Presence of right artificial knee joint; K21.9 Gastro-esophageal reflux disease without esophagitis; Z79.82 Long term (current) use of aspirin; Z79.899 Other long term (current) drug therapy; Z87.891 Personal history of nicotine dependence; Z90.710 Acquired absence of both cervix and uterus; Z95.810 Presence of automatic (implantable) cardiac defibrillator; Z90.49 Acquired absence of other specified parts of digestive tract; Z88.1 Allergy status to other antibiotic agents; Z88.0 Allergy status to penicillin; Z91.018 Allergy to other foods; Z91.048 Other nonmedicinal substance allergy status; Z91.09 Other allergy status, other than to drugs and biological substances; Z86.73 Personal history of transient ischemic attack (TIA), and cerebral infarction without residual deficits
CPT/HCPCS: 36415; 36569; 71010; 76937; 80053; 80061; 82550; 82553; 83605; 83690; 84439; 84443; 84484; 85025; 85610; 87040; 93005; 93970; 94640; 94664; 96374; 96375; 99285; C1725; J1650; J1940; J2270; J2405; J2920; J2930; J7620

== ENCOUNTER 2017-05-03 05:56 | Emergency (ER) | payer MEDICAID ==
[~2017-05-03] VITALS: Ht 160 cm; Wt 142.0 kg
[2017-05-03] MEDS ORDERED: IPRATROPIUM BROMIDE (0.02%) 0.5MG/2.5ML NEB HHN STA (07:20)
[2017-05-03] MEDS ORDERED: ALBUTEROL (0.083%) 2.5MG/3ML NEB HHN STA (07:20)
[2017-05-03] MEDS ORDERED: KETOROLAC 60MG/2ML VIAL IM STA (07:20)
[2017-05-03] MEDS ORDERED: PREDNISONE 20MG TABLET PO STA (07:20)
[2017-05-03] MEDS ORDERED: HYDROCODONE/ACETAMINOPHEN 5/325MG TABLET PO ONE (07:30)
[2017-05-03 07:39] LABS: BASOPHILS % 0.9 % (0.0-2.0); EOSINOPHILS % 4.2 % (0.0-5.0); HEMATOCRIT. 34.8 % (36.0-48.0); HEMOGLOBIN. 11.5 g/dL (12.0-16.0); LYMPHOCYTES % 33.7 % (20.0-50.0); MEAN CORPUSCULAR HEMOGLOBIN 28.4 pg (28.0-32.0); MEAN CORPUSCULAR VOLUME 85.8 fL (81.0-99.0); MEAN PLATELET VOLUME 8.2 fl (7.4-10.4); MONOCYTES % 11.6 % (2.0-8.0); NEUTROPHILS % 49.6 % (40.0-76.0); PLATELET 221 x1000/uL (130-400); RED BLOOD CELL COUNT 4.06 mill/uL (4.2-5.4); RED CELL DISTRIBUTION WIDTH 16.1 % (11.6-14.6)
[2017-05-03 07:45] LABS: CHLORIDE 110 mEq/L (98-107)
[2017-05-03 07:55] LABS: CARBON DIOXIDE 29 mEq/L (21-32); TROPONIN I 0.03 ng/mL (0.00-0.04)
[2017-05-03 11:42] VITALS: BP 122/75
== END 2017-05-03 11:48 | disposition home or self-care (01) ==
LOC: ER 05:56
DX: I50.9 Heart failure, unspecified (principal); J44.9 Chronic obstructive pulmonary disease, unspecified; Z79.82 Long term (current) use of aspirin; Z88.0 Allergy status to penicillin; Z88.1 Allergy status to other antibiotic agents; Z91.018 Allergy to other foods
CPT/HCPCS: 36415; 71010; 80048; 83880; 84484; 85025; 93005; 94640; 96372; 99285; J1885; J7512; J7611; Z7610

== ENCOUNTER 2017-06-12 06:46 | Emergency (ER) | payer MEDICAID ==
[~2017-06-12] VITALS: Ht 167.6 cm; Wt 142.0 kg
[2017-06-12] MEDS ORDERED: MORPHINE SULFATE 4 MG/ML CPJ (NOT FOR IM USE) IV STA (08:02)
[2017-06-12] MEDS ORDERED: ONDANSETRON HCL 4MG/2ML VIAL IV STA (08:02)
[2017-06-12] MEDS ORDERED: SODIUM CHLORIDE 0.9% 1,000 ML IV ONE (08:02)
[2017-06-12 08:35] LABS: BASOPHILS % 1.1 % (0.0-2.0); EOSINOPHILS % 1.1 % (0.0-5.0); HEMATOCRIT. 46.7 % (36.0-48.0); HEMOGLOBIN. 14.9 g/dL (12.0-16.0); LYMPHOCYTES % 24.5 % (20.0-50.0); MEAN CORPUSCULAR HEMOGLOBIN 27.5 pg (28.0-32.0); MEAN PLATELET VOLUME 9.3 fl (7.4-10.4); MONOCYTES % 8.3 % (2.0-8.0); PLATELET 252 x1000/uL (130-400); RED BLOOD CELL COUNT 5.42 mill/uL (4.2-5.4); RED CELL DISTRIBUTION WIDTH 16.4 % (11.6-14.6)
[2017-06-12 08:41] LABS: CHLORIDE 111 mEq/L (98-107)
[2017-06-12 08:43] LABS: INR 1.1; PROTHROMBIN TIME 11.2 sec (9.4-11.6)
[2017-06-12] MEDS ORDERED: MORPHINE SULFATE 10 MG/ML CPJ IV NR (08:45)
[2017-06-12 08:49] LABS: CARBON DIOXIDE 24 mEq/L (21-32)
[2017-06-12] MEDS ORDERED: IOHEXOL-300 100 ML BOTTLE ONE (10:43)
[2017-06-12] MEDS ORDERED: METRONIDAZOLE 500 MG PREMIX 100 ML IV ONE (10:45)
[2017-06-12] MEDS ORDERED: LEVOFLOXACIN 750MG PREMIX 150 ML IV ONE (10:45)
[2017-06-12 11:11] LABS: CLARITY URINE CLEAR (CLEAR); COLOR URINE YELLOW (YELLOW); GLUCOSE URINE NEGATIVE (NEGATIVE); KETONES URINE NEGATIVE (NEGATIVE); LEUKOCYTE ESTERASE URINE NEGATIVE (NEGATIVE); NITRITE URINE NEGATIVE (NEGATIVE); OCCULT BLOOD URINE NEGATIVE (NEGATIVE); PROTEIN URINE NEGATIVE (NEGATIVE); SPECIFIC GRAVITY URINE 1.077 (1.005-1.030); UROBILINOGEN URINE 0.2 E.U./dL (0.2-1.0)
[2017-06-12] MEDS ORDERED: DIATR MEGLU/DIATRIZOATE SOLN 120ML ONE (12:42)
[2017-06-12] MEDS ORDERED: IBUPROFEN 600MG TABLET PO ONE (14:15)
[2017-06-12 14:30] VITALS: BP 120/90
== END 2017-06-12 16:26 | disposition home or self-care (01) ==
LOC: ER 07:27 → CANBEDREQ 14:08 → ER 16:26
DX: R10.32 Left lower quadrant pain (principal); R10.31 Right lower quadrant pain; R11.2 Nausea with vomiting, unspecified; R19.7 Diarrhea, unspecified; R35.0 Frequency of micturition; I11.0 Hypertensive heart disease with heart failure; I50.9 Heart failure, unspecified; E78.00 Pure hypercholesterolemia, unspecified; G40.909 Epilepsy, unspecified, not intractable, without status epilepticus; J44.9 Chronic obstructive pulmonary disease, unspecified; E66.01 Morbid (severe) obesity due to excess calories; Z68.43 Body mass index [BMI] 50.0-59.9, adult; Z88.0 Allergy status to penicillin; Z88.1 Allergy status to other antibiotic agents; Z90.710 Acquired absence of both cervix and uterus; Z90.49 Acquired absence of other specified parts of digestive tract; Z95.0 Presence of cardiac pacemaker; Z96.659 Presence of unspecified artificial knee joint
CPT/HCPCS: 36415; 74176; 74177; 80053; 81003; 83690; 85025; 85610; 96361; 96365; 96366; 96367; 96375; 99285; J1956; J2270; J2405; J3490; J7030; Q9967; Z7610; Q9963

== ENCOUNTER 2017-07-11 09:20 | Emergency (ER) | payer MEDICAID ==
[~2017-07-11] VITALS: Ht 167.6 cm; Wt 138.0 kg
[2017-07-11 11:23] LABS: BASOPHILS % 0.6 % (0.0-2.0); EOSINOPHILS % 1.4 % (0.0-5.0); HEMATOCRIT. 38.9 % (36.0-48.0); HEMOGLOBIN. 12.7 g/dL (12.0-16.0); LYMPHOCYTES % 12.4 % (20.0-50.0); MEAN CORPUSCULAR HEMOGLOBIN 28.1 pg (28.0-32.0); MEAN CORPUSCULAR VOLUME 86.1 fL (81.0-99.0); MEAN PLATELET VOLUME 8.8 fl (7.4-10.4); MONOCYTES % 8.5 % (2.0-8.0); NEUTROPHILS % 77.1 % (40.0-76.0); PLATELET 243 x1000/uL (130-400); RED BLOOD CELL COUNT 4.52 mill/uL (4.2-5.4); RED CELL DISTRIBUTION WIDTH 15.7 % (11.6-14.6)
[2017-07-11 11:24] LABS: PROTHROMBIN TIME 10.6 sec (9.4-11.6)
[2017-07-11 11:32] LABS: CARBON DIOXIDE 28 mEq/L (21-32); CHLORIDE 107 mEq/L (98-107)
[2017-07-11 11:37] LABS: TROPONIN I < 0.02 ng/mL (0.00-0.04)
[2017-07-11] MEDS ORDERED: ACETAMINOPHEN WITH CODEINE 300/30MG TABLET PO ONE (12:00)
[2017-07-11 12:19] VITALS: BP 119/71
[2017-07-16] MEDS ORDERED: P20 PO (11:49)
[2017-07-16] MEDS ORDERED: AZIT500T2 PO (11:49)
[2017-07-16] MEDS ORDERED: GUAI-858 PO (11:49)
== END 2017-07-11 12:50 | disposition home or self-care (01) ==
LOC: ER 09:55
DX: B34.9 Viral infection, unspecified (principal); R51 Headache; I11.0 Hypertensive heart disease with heart failure; I50.9 Heart failure, unspecified; G40.909 Epilepsy, unspecified, not intractable, without status epilepticus; E78.00 Pure hypercholesterolemia, unspecified; J44.9 Chronic obstructive pulmonary disease, unspecified; Z86.73 Personal history of transient ischemic attack (TIA), and cerebral infarction without residual deficits; Z95.0 Presence of cardiac pacemaker; Z88.0 Allergy status to penicillin; Z79.82 Long term (current) use of aspirin; Z88.1 Allergy status to other antibiotic agents; Z91.018 Allergy to other foods
CPT/HCPCS: 36415; 70450; 71010; 80053; 83880; 84484; 85025; 85610; 93005; 99285; Z7610

== ENCOUNTER 2017-07-14 10:01 | Inpatient (IN) | payer MEDICAID ==
[~2017-07-14] VITALS: Ht 167.6 cm; Wt 141.1 kg
[2017-07-14] MEDS ORDERED: IPRATROPIUM BROMIDE (0.02%) 0.5MG/2.5ML NEB HHN STA (10:25)
[2017-07-14] MEDS ORDERED: METHYLPREDNISOLONE SOD SUCC 125 MG/2 ML VIAL IV STA (10:25)
[2017-07-14] MEDS ORDERED: ALBUTEROL (0.083%) 2.5MG/3ML NEB HHN STA (10:25)
[2017-07-14 11:03] LABS: BASOPHILS % 0.6 % (0.0-2.0); EOSINOPHILS % 1.3 % (0.0-5.0); HEMATOCRIT. 39.9 % (36.0-48.0); HEMOGLOBIN. 13.1 g/dL (12.0-16.0); LYMPHOCYTES % 12.7 % (20.0-50.0); MEAN CORPUSCULAR HEMOGLOBIN 27.9 pg (28.0-32.0); MEAN CORPUSCULAR VOLUME 85.2 fL (81.0-99.0); MEAN PLATELET VOLUME 9.1 fl (7.4-10.4); NEUTROPHILS % 77.4 % (40.0-76.0); PLATELET 249 x1000/uL (130-400); RED BLOOD CELL COUNT 4.69 mill/uL (4.2-5.4); RED CELL DISTRIBUTION WIDTH 15.4 % (11.6-14.6)
[2017-07-14 11:10] LABS: INR 1.1
[2017-07-14 11:18] LABS: CARBON DIOXIDE 25 mEq/L (21-32); CHLORIDE 108 mEq/L (98-107)
[2017-07-14] MEDS ORDERED: MAGNESIUM 2 G PREMIX 50 ML IV ONE (11:30)
[2017-07-14 11:45] LABS: TROPONIN I < 0.02 ng/mL (0.00-0.04)
[2017-07-14] MEDS ORDERED: LEVOFLOXACIN 750MG PREMIX 150 ML IV ONE (12:15)
[2017-07-14 12:40] LABS: BG BASE EXCESS -0.8 mmol/L (-2.0-2.0); BG DEOXYHEMOGLOBIN 3.8 % (0.0-5.0); BG FRACTION INSPIRED OXYGEN 21; BG HCO3 ACT 21.7 mmol/L (22.0-26.0); BG METHEMOGLOBIN 0.3 % (0.0-1.5); BG OXYGEN SATURATION 96.1 % (92.0-98.5); BG OXYHEMOGLOBIN 94.9 % (94.0-97.0); BG PCO2 30.1 mmHg (35.0-45.0); BG PH 7.476 (7.350-7.450); BG PO2 74.2 mmHg (75.0-100.0); BG SAMPLE SITE RIGHT RADIAL; BG TOTAL HEMOGLOBIN 13.8 g/dL (12.0-18.0); BG VENT MODE ROOM AIR
[2017-07-14] MEDS ORDERED: SODIUM BICARBONATE 4% (2.4MEQ) 5ML VIAL IV ONE (14:34)
[2017-07-14] MEDS ORDERED: LIDOCAINE HCL 1% 20ML VIAL (Pyxis) INJ ONE (14:34)
[2017-07-14] MEDS ORDERED: METHYLPREDNISOLONE SOD SUCC 125 MG/2 ML VIAL IV SCH (15:45)
[2017-07-14] MEDS: HYDROCODONE/ACETAMINOPHEN 5/325MG TABLET PO PRN (16:55)
[2017-07-14 17:32] VITALS: BP 114/75
[2017-07-14] MEDS ORDERED: ALBU18HF2 IH (17:58)
[2017-07-14] MEDS ORDERED: DIPHENHYDRAMINE 50MG/ML VIAL IM PRN (18:30)
[2017-07-14] MEDS ORDERED: IPRATROPIUM/ALBUTEROL 0.5-3(2.5)MG/3ML NEB HHN PRN (18:30)
[2017-07-14] MEDS ORDERED: HYDROCODONE/ACETAMINOPHEN 5/325MG TABLET PO PRN (18:30)
[2017-07-14] MEDS ORDERED: ONDANSETRON HCL 4MG/2ML VIAL IV PRN (18:30)
[2017-07-14 20:00] VITALS: BP 121/66
[2017-07-14] MEDS: IPRATROPIUM/ALBUTEROL 0.5-3(2.5)MG/3ML NEB HHN SCH ×2 (20:18→23:53)
[2017-07-14] MEDS: METHYLPREDNISOLONE SOD SUCC 40 MG/ML VIAL IV SCH (21:49)
[2017-07-14] MEDS: ENOXAPARIN 40MG/0.4ML SYR SUBCUT SCH (21:52)
[2017-07-14] MEDS: PROMETHAZINE/DEXTROMETHORPHAN 6.25-15MG/5ML BOTTLE 120ML PO PRN (21:53)
[2017-07-14] MEDS: MORPHINE SULFATE 2 MG/ML CPJ (NOT FOR IM USE) IV PRN (21:59)
[2017-07-15] VITALS: BP_SYST 110; BP_SYST 130; BP_DIAS 56; BP_DIAS 60
[2017-07-15] MEDS: IPRATROPIUM/ALBUTEROL 0.5-3(2.5)MG/3ML NEB HHN SCH ×5 (03:40→21:29)
[2017-07-15 04:00] VITALS: BP 137/81
[2017-07-15] MEDS: METHYLPREDNISOLONE SOD SUCC 40 MG/ML VIAL IV SCH ×3 (04:24→22:12)
[2017-07-15] MEDS: PROMETHAZINE/DEXTROMETHORPHAN 6.25-15MG/5ML BOTTLE 120ML PO PRN ×3 (04:24→23:12)
[2017-07-15] MEDS: MORPHINE SULFATE 2 MG/ML CPJ (NOT FOR IM USE) IV PRN ×4 (04:25→23:12)
[2017-07-15] MEDS: MULTIVITAMINS,THER W-MINERALS TABLET PO SCH (08:49)
[2017-07-15] MEDS: ENOXAPARIN 40MG/0.4ML SYR SUBCUT SCH ×2 (08:49→22:12)
[2017-07-15] MEDS: FOLIC ACID 1MG TABLET PO SCH (08:49)
[2017-07-15] MEDS: AMLODIPINE 2.5MG TABLET PO SCH (08:50)
[2017-07-15] MEDS: POTASSIUM CHLORIDE 20MEQ TABLET SR PO SCH (08:50)
[2017-07-15] MEDS: OMEPRAZOLE 20MG CAPSULE EXTENDED RELEASE PO SCH (08:53)
[2017-07-15] MEDS: LORATADINE 10MG TABLET PO SCH (08:53)
[2017-07-15] MEDS: DOCUSATE SODIUM 250MG CAPSULE PO SCH ×2 (08:54→17:56)
[2017-07-15] MEDS: LEVETIRACETAM 500MG TABLET PO SCH ×2 (08:54→22:12)
[2017-07-15] MEDS: ASPIRIN 81MG EC TABLET PO SCH (08:54)
[2017-07-15 09:00] VITALS: BP 122/90
[2017-07-15] MEDS ORDERED: MEDICATION NOT ON FORMULARY EA (Multivitamin (Multi-Vitamin Daily) 1 EACH) PO SCH (09:00)
[2017-07-15] MEDS ORDERED: CYCLOBENZAPRINE HCL 5 MG PO SCH (09:00)
[2017-07-15] MEDS ORDERED: OMEPRAZOLE 20MG CAPSULE EXTENDED RELEASE PO SCH (09:00)
[2017-07-15 09:51] LABS: BASOPHILS % 0.1 % (0.0-2.0); HEMATOCRIT. 39.8 % (36.0-48.0); LYMPHOCYTES % 14.2 % (20.0-50.0); MEAN CORPUSCULAR HEMOGLOBIN 28.1 pg (28.0-32.0); MEAN CORPUSCULAR VOLUME 85.9 fL (81.0-99.0); MEAN PLATELET VOLUME 9.2 fl (7.4-10.4); MONOCYTES % 3.7 % (2.0-8.0); PLATELET 252 x1000/uL (130-400); RED BLOOD CELL COUNT 4.64 mill/uL (4.2-5.4); RED CELL DISTRIBUTION WIDTH 15.4 % (11.6-14.6)
[2017-07-15] MEDS: CYCLOBENZAPRINE 10MG TABLET PO SCH ×2 (09:59→22:12)
[2017-07-15 10:14] LABS: CARBON DIOXIDE 29 mEq/L (21-32); CHLORIDE 106 mEq/L (98-107)
[2017-07-15 10:14] LABS: BG BASE EXCESS -2.2 mmol/L (-2.0-2.0); BG CARBOXYHEMOGLOBIN 0.7 % (0.5-1.5); BG DEOXYHEMOGLOBIN 2.4 % (0.0-5.0); BG FRACTION INSPIRED OXYGEN 28; BG HCO3 ACT 22.1 mmol/L (22.0-26.0); BG METHEMOGLOBIN 0.4 % (0.0-1.5); BG OXYGEN SATURATION 97.6 % (92.0-98.5); BG OXYHEMOGLOBIN 96.5 % (94.0-97.0); BG PCO2 36.8 mmHg (35.0-45.0); BG PH 7.396 (7.350-7.450); BG SAMPLE SITE RIGHT RADIAL; BG TOTAL HEMOGLOBIN 15.2 g/dL (12.0-18.0); BG VENT MODE NASAL CANNULA
[2017-07-15 12:00] VITALS: BP 142/76
[2017-07-15] MEDS: PHENYTOIN SODIUM EXTENDED 100MG CAPSULE PO SCH ×2 (12:56→17:56)
[2017-07-15] MEDS: HYDROCODONE/ACETAMINOPHEN 5/325MG TABLET PO PRN (12:57)
[2017-07-15 16:52] VITALS: BP 138/78
[2017-07-15] MEDS: THEOPHYLLINE ANHYDROUS 80 MG/15 ML 120ML PO SCH (17:57)
[2017-07-15 19:46] VITALS: BP 116/70
[2017-07-15] MEDS: ATORVASTATIN CALCIUM 40MG TABLET PO SCH (22:13)
[2017-07-16] VITALS: BP 110/56
[2017-07-16] MEDS: IPRATROPIUM/ALBUTEROL 0.5-3(2.5)MG/3ML NEB HHN SCH ×6 (00:39→21:07)
[2017-07-16 04:00] VITALS: BP 120/75
[2017-07-16] MEDS: METHYLPREDNISOLONE SOD SUCC 40 MG/ML VIAL IV SCH ×2 (04:46→11:24)
[2017-07-16] MEDS: THEOPHYLLINE ANHYDROUS 80 MG/15 ML 120ML PO SCH ×4 (05:28→17:39)
[2017-07-16] MEDS: PROMETHAZINE/DEXTROMETHORPHAN 6.25-15MG/5ML BOTTLE 120ML PO PRN ×3 (05:29→21:22)
[2017-07-16] MEDS: MORPHINE SULFATE 2 MG/ML CPJ (NOT FOR IM USE) IV PRN ×4 (05:30→21:23)
[2017-07-16] MEDS: OMEPRAZOLE 20MG CAPSULE EXTENDED RELEASE PO SCH (07:09)
[2017-07-16 07:45] LABS: BASOPHILS % 0.2 % (0.0-2.0); EOSINOPHILS % 0.1 % (0.0-5.0); HEMATOCRIT. 35.5 % (36.0-48.0); HEMOGLOBIN. 11.3 g/dL (12.0-16.0); LYMPHOCYTES % 16.1 % (20.0-50.0); MEAN CORPUSCULAR HEMOGLOBIN 27.6 pg (28.0-32.0); MEAN CORPUSCULAR VOLUME 86.3 fL (81.0-99.0); MEAN PLATELET VOLUME 9.3 fl (7.4-10.4); NEUTROPHILS % 77.6 % (40.0-76.0); PLATELET 243 x1000/uL (130-400); RED BLOOD CELL COUNT 4.11 mill/uL (4.2-5.4); RED CELL DISTRIBUTION WIDTH 15.3 % (11.6-14.6)
[2017-07-16 08:23] LABS: CARBON DIOXIDE 27 mEq/L (21-32); CHLORIDE 107 mEq/L (98-107)
[2017-07-16 08:42] VITALS: BP 119/73
[2017-07-16] MEDS: MULTIVITAMINS,THER W-MINERALS TABLET PO SCH (09:28)
[2017-07-16] MEDS: ASPIRIN 81MG EC TABLET PO SCH (09:28)
[2017-07-16] MEDS: CYCLOBENZAPRINE 10MG TABLET PO SCH ×2 (09:28→21:17)
[2017-07-16] MEDS: PHENYTOIN SODIUM EXTENDED 100MG CAPSULE PO SCH ×2 (09:28→16:26)
[2017-07-16] MEDS: ENOXAPARIN 40MG/0.4ML SYR SUBCUT SCH ×2 (09:29→21:18)
[2017-07-16] MEDS: DOCUSATE SODIUM 250MG CAPSULE PO SCH ×2 (09:29→16:26)
[2017-07-16] MEDS: AMLODIPINE 2.5MG TABLET PO SCH (09:30)
[2017-07-16] MEDS: POTASSIUM CHLORIDE 20MEQ TABLET SR PO SCH (09:32)
[2017-07-16] MEDS: LORATADINE 10MG TABLET PO SCH (09:32)
[2017-07-16] MEDS: LEVETIRACETAM 500MG TABLET PO SCH ×2 (09:32→21:17)
[2017-07-16] MEDS: FOLIC ACID 1MG TABLET PO SCH (09:32)
[2017-07-16] MEDS ORDERED: P20 PO (11:49)
[2017-07-16] MEDS ORDERED: AZIT500T2 PO (11:49)
[2017-07-16] MEDS ORDERED: GUAI-858 PO (11:49)
[2017-07-16 12:59] VITALS: BP 116/70
[2017-07-16 16:30] VITALS: BP 117/73
[2017-07-16] MEDS: ACETYLCYSTEINE 200MG/ML 20% VIAL 4ML INH SCH (16:46)
[2017-07-16 20:00] VITALS: BP 159/86
[2017-07-16] MEDS: ATORVASTATIN CALCIUM 40MG TABLET PO SCH (21:17)
[2017-07-17] VITALS: BP 134/95
[2017-07-17] MEDS: THEOPHYLLINE ANHYDROUS 80 MG/15 ML 120ML PO SCH ×3 (00:02→13:00)
[2017-07-17] MEDS: ACETYLCYSTEINE 200MG/ML 20% VIAL 4ML INH SCH ×3 (01:20→15:25)
[2017-07-17] MEDS: IPRATROPIUM/ALBUTEROL 0.5-3(2.5)MG/3ML NEB HHN SCH ×5 (01:21→15:24)
[2017-07-17 04:00] VITALS: BP 152/62
[2017-07-17] MEDS: MORPHINE SULFATE 2 MG/ML CPJ (NOT FOR IM USE) IV PRN ×2 (05:02→11:01)
[2017-07-17] MEDS: PROMETHAZINE/DEXTROMETHORPHAN 6.25-15MG/5ML BOTTLE 120ML PO PRN (05:02)
[2017-07-17] MEDS: OMEPRAZOLE 20MG CAPSULE EXTENDED RELEASE PO SCH (05:02)
[2017-07-17] MEDS ORDERED: PREDNISONE 20MG TABLET PO SCH (07:50)
[2017-07-17 08:00] VITALS: BP 124/63
[2017-07-17] MEDS: DOCUSATE SODIUM 250MG CAPSULE PO SCH (09:45)
[2017-07-17] MEDS: LORATADINE 10MG TABLET PO SCH (09:45)
[2017-07-17] MEDS: POTASSIUM CHLORIDE 20MEQ TABLET SR PO SCH (09:45)
[2017-07-17] MEDS: MULTIVITAMINS,THER W-MINERALS TABLET PO SCH (09:45)
[2017-07-17] MEDS: ASPIRIN 81MG EC TABLET PO SCH (09:45)
[2017-07-17] MEDS: CYCLOBENZAPRINE 10MG TABLET PO SCH (09:46)
[2017-07-17] MEDS: AMLODIPINE 2.5MG TABLET PO SCH (09:46)
[2017-07-17] MEDS: PHENYTOIN SODIUM EXTENDED 100MG CAPSULE PO SCH (09:47)
[2017-07-17] MEDS: ENOXAPARIN 40MG/0.4ML SYR SUBCUT SCH (09:47)
[2017-07-17] MEDS: LEVETIRACETAM 500MG TABLET PO SCH (09:47)
[2017-07-17] MEDS: FOLIC ACID 1MG TABLET PO SCH (09:47)
[2017-07-17 11:47] VITALS: BP 118/72
[2017-07-17 14:59] VITALS: BP 100/61
== END 2017-07-17 16:30 | disposition home or self-care (01) | DRG 140 ==
LOC: ER 10:23 → ENRESERV 15:56 → 6WST 15:56
PROVIDERS: ADMIT Internal Medicine; ATTEND Internal Medicine
PROC: 02HV33Z Insertion of Infusion Device into Superior Vena Cava, Percutaneous Approach (ICD-10-PCS; principal; 2017-07-14)
PROC: B5181ZA Fluoroscopy of Superior Vena Cava using Low Osmolar Contrast, Guidance (ICD-10-PCS; 2017-07-14)
PROC: B548ZZA Ultrasonography of Superior Vena Cava, Guidance (ICD-10-PCS; 2017-07-14)
DX: J44.0 Chronic obstructive pulmonary disease with (acute) lower respiratory infection (principal); J96.20 Acute and chronic respiratory failure, unspecified whether with hypoxia or hypercapnia; I47.2 Ventricular tachycardia; J18.9 Pneumonia, unspecified organism; I11.0 Hypertensive heart disease with heart failure; I42.9 Cardiomyopathy, unspecified; I50.9 Heart failure, unspecified; Z68.43 Body mass index [BMI] 50.0-59.9, adult; Z99.81 Dependence on supplemental oxygen; E66.01 Morbid (severe) obesity due to excess calories; E78.5 Hyperlipidemia, unspecified; E78.00 Pure hypercholesterolemia, unspecified; G40.909 Epilepsy, unspecified, not intractable, without status epilepticus; G47.33 Obstructive sleep apnea (adult) (pediatric); J44.1 Chronic obstructive pulmonary disease with (acute) exacerbation; Z96.659 Presence of unspecified artificial knee joint; J98.01 Acute bronchospasm; Z86.73 Personal history of transient ischemic attack (TIA), and cerebral infarction without residual deficits; Z90.710 Acquired absence of both cervix and uterus; Z95.810 Presence of automatic (implantable) cardiac defibrillator; Z87.891 Personal history of nicotine dependence; Z88.0 Allergy status to penicillin; Z88.1 Allergy status to other antibiotic agents; Z88.8 Allergy status to other drugs, medicaments and biological substances; Z79.899 Other long term (current) drug therapy; Z79.82 Long term (current) use of aspirin; Z90.49 Acquired absence of other specified parts of digestive tract
CPT/HCPCS: 36415; 36569; 36600; 71010; 76937; 77001; 80048; 80053; 80185; 82375; 82805; 83880; 84443; 84484; 85025; 85610; 87804; 93005; 94640; 96374; 96375; 99285; C1725; J1650; J1956; J2270; J2920; J2930; J3475; J3490; J7512; J7608; J7611; J7620

== ENCOUNTER 2017-07-20 08:13 | Emergency (ER) | payer MEDICAID ==
[~2017-07-20] VITALS: Ht 167.6 cm; Wt 139.0 kg
[~2017-07-20 08:13] MED LIST changes: +AZIT500T2 PO; +GUAI-858 PO; +P20 PO
[2017-07-20 08:22] VITALS: BP 115/68
[2017-07-20] MEDS ORDERED: ALBUTEROL (0.5%) 2.5MG/0.5ML NEB HHN ONE (10:15)
== END 2017-07-20 11:33 | disposition home or self-care (01) ==
LOC: ER 08:13
DX: J20.9 Acute bronchitis, unspecified (principal); I11.0 Hypertensive heart disease with heart failure; I50.9 Heart failure, unspecified; E78.00 Pure hypercholesterolemia, unspecified; R56.9 Unspecified convulsions; J44.9 Chronic obstructive pulmonary disease, unspecified; Z79.82 Long term (current) use of aspirin; Z86.73 Personal history of transient ischemic attack (TIA), and cerebral infarction without residual deficits; Z95.0 Presence of cardiac pacemaker; Z88.0 Allergy status to penicillin; Z90.49 Acquired absence of other specified parts of digestive tract; Z90.710 Acquired absence of both cervix and uterus; Z96.659 Presence of unspecified artificial knee joint; Z88.1 Allergy status to other antibiotic agents
CPT/HCPCS: 94640; 99283; J7611

== ENCOUNTER 2017-09-18 07:59 | Emergency (ER) | payer MEDICAID ==
[~2017-09-18] VITALS: Ht 167.6 cm; Wt 141.0 kg
[2017-09-18] MEDS ORDERED: TRAMADOL 50MG TABLET PO ONE (08:45)
[2017-09-18 09:08] LABS: CLARITY URINE CLOUDY (CLEAR); COLOR URINE YELLOW (YELLOW); KETONES URINE NEGATIVE (NEGATIVE); LEUKOCYTE ESTERASE URINE NEGATIVE (NEGATIVE); NITRITE URINE NEGATIVE (NEGATIVE); OCCULT BLOOD URINE NEGATIVE (NEGATIVE); PROTEIN URINE NEGATIVE (NEGATIVE); SPECIFIC GRAVITY URINE 1.022 (1.005-1.030); UROBILINOGEN URINE 0.2 E.U./dL (0.2-1.0)
[2017-09-18 09:21] LABS: CHLORIDE 111 mEq/L (98-107)
[2017-09-18 09:24] LABS: BASOPHILS % 1.2 % (0.0-2.0); EOSINOPHILS % 2.5 % (0.0-5.0); HEMATOCRIT. 42.3 % (36.0-48.0); HEMOGLOBIN. 13.7 g/dL (12.0-16.0); LYMPHOCYTES % 26.2 % (20.0-50.0); MEAN CORPUSCULAR HEMOGLOBIN 27.4 pg (28.0-32.0); MEAN CORPUSCULAR VOLUME 84.7 fL (81.0-99.0); MONOCYTES % 8.1 % (2.0-8.0); PLATELET 227 x1000/uL (130-400); RED BLOOD CELL COUNT 4.99 mill/uL (4.2-5.4); RED CELL DISTRIBUTION WIDTH 15.4 % (11.6-14.6)
[2017-09-18 09:27] LABS: INR 1.1; PROTHROMBIN TIME 11.2 sec (9.4-11.6)
[2017-09-18] MEDS ORDERED: SODIUM BICARBONATE 4% (2.4MEQ) 5ML VIAL IV ONE (10:08)
[2017-09-18] MEDS ORDERED: IOHEXOL-300 100 ML BOTTLE ONE (11:13)
[2017-09-18] MEDS ORDERED: MORPHINE SULFATE 4 MG/ML CPJ (NOT FOR IM USE) IV ONE (11:30)
[2017-09-18] MEDS ORDERED: ONDANSETRON HCL 4MG/2ML VIAL IV ONE (11:30)
[2017-09-18 14:00] VITALS: BP 147/86
== END 2017-09-18 14:34 | disposition home or self-care (01) ==
LOC: ER 07:59 → EDBEDREQ 13:01 → EDBEDREQTM 13:01 → CANBEDREQ 13:21 → ER 14:34
DX: R10.84 Generalized abdominal pain (principal); J44.9 Chronic obstructive pulmonary disease, unspecified; G47.30 Sleep apnea, unspecified; E78.00 Pure hypercholesterolemia, unspecified; G40.909 Epilepsy, unspecified, not intractable, without status epilepticus; I11.0 Hypertensive heart disease with heart failure; I50.9 Heart failure, unspecified; I67.1 Cerebral aneurysm, nonruptured; Z86.73 Personal history of transient ischemic attack (TIA), and cerebral infarction without residual deficits; Z88.3 Allergy status to other anti-infective agents; Z88.0 Allergy status to penicillin; Z91.018 Allergy to other foods; Z91.048 Other nonmedicinal substance allergy status; Z79.82 Long term (current) use of aspirin; Z95.0 Presence of cardiac pacemaker; Z90.710 Acquired absence of both cervix and uterus; Z90.49 Acquired absence of other specified parts of digestive tract; Z96.659 Presence of unspecified artificial knee joint
CPT/HCPCS: 36415; 36569; 71045; 74177; 76937; 77001; 80053; 81003; 82270; 83690; 85025; 85610; 96374; 96375; 99285; C1725; J2270; J2405; J3490; J7030; Q9967; Z7610

== ENCOUNTER 2017-09-29 09:13 | Emergency (ER) | payer MEDICAID ==
[~2017-09-29] VITALS: Ht 167.6 cm; Wt 141.0 kg
[2017-09-29] MEDS ORDERED: IPRATROPIUM BROMIDE (0.02%) 0.5MG/2.5ML NEB HHN STA (09:56)
[2017-09-29] MEDS ORDERED: METHYLPREDNISOLONE SOD SUCC 125 MG/2 ML VIAL IV STA (09:56)
[2017-09-29] MEDS: ALBUTEROL (0.083%) 2.5MG/3ML NEB HHN SCH ×3 (10:00→11:32)
[2017-09-29 10:15] LABS: EOSINOPHILS % 1.8 % (0.0-5.0); HEMATOCRIT. 36.1 % (36.0-48.0); HEMOGLOBIN. 11.8 g/dL (12.0-16.0); MEAN CORPUSCULAR HEMOGLOBIN 27.6 pg (28.0-32.0); MEAN CORPUSCULAR VOLUME 84.2 fL (81.0-99.0); MEAN PLATELET VOLUME 8.9 fl (7.4-10.4); MONOCYTES % 11.8 % (2.0-8.0); NEUTROPHILS % 66.4 % (40.0-76.0); PLATELET 169 x1000/uL (130-400); RED BLOOD CELL COUNT 4.28 mill/uL (4.2-5.4); RED CELL DISTRIBUTION WIDTH 15.6 % (11.6-14.6)
[2017-09-29 10:20] LABS: INR 1.1
[2017-09-29 10:42] LABS: CHLORIDE 108 mEq/L (98-107)
[2017-09-29] MEDS ORDERED: PREDNISONE 20MG TABLET PO STA (10:42)
[2017-09-29 13:15] VITALS: BP 103/58
== END 2017-09-29 13:19 | disposition home or self-care (01) ==
LOC: ER 09:13
DX: J44.1 Chronic obstructive pulmonary disease with (acute) exacerbation (principal); I50.9 Heart failure, unspecified; I11.0 Hypertensive heart disease with heart failure; E88.09 Other disorders of plasma-protein metabolism, not elsewhere classified; R56.9 Unspecified convulsions; E78.00 Pure hypercholesterolemia, unspecified; D64.9 Anemia, unspecified; Z95.0 Presence of cardiac pacemaker; Z88.1 Allergy status to other antibiotic agents; Z95.810 Presence of automatic (implantable) cardiac defibrillator; Z88.0 Allergy status to penicillin; Z86.73 Personal history of transient ischemic attack (TIA), and cerebral infarction without residual deficits; Z79.82 Long term (current) use of aspirin; Z90.710 Acquired absence of both cervix and uterus; Z96.659 Presence of unspecified artificial knee joint; Z90.49 Acquired absence of other specified parts of digestive tract; Z91.018 Allergy to other foods
CPT/HCPCS: 36415; 71045; 80053; 83880; 84484; 85025; 85610; 93005; 94640; 99285; C1893; J7512; J7611; Z7610

== ENCOUNTER 2017-12-07 19:34 | Emergency (ER) | payer MEDICAID ==
[~2017-12-07] VITALS: Ht 167.6 cm; Wt 142.0 kg
[2017-12-07] MEDS ORDERED: MORPHINE SULFATE 4 MG/ML CPJ (NOT FOR IM USE) IV STA (23:23)
[2017-12-07] MEDS ORDERED: ONDANSETRON HCL 4MG/2ML VIAL IV STA (23:23)
[2017-12-07] MEDS ORDERED: SODIUM CHLORIDE 0.9% 1,000 ML IV ONE (23:23)
[2017-12-07] MEDS ORDERED: FAMOTIDINE 20MG/2ML VIAL IV STA (23:23)
[2017-12-08 00:07] LABS: EOSINOPHILS % 0.8 % (0.0-5.0); HEMOGLOBIN. 13.2 g/dL (12.0-16.0); LYMPHOCYTES % 22.8 % (20.0-50.0); MEAN CORPUSCULAR VOLUME 84.5 fL (81.0-99.0); MEAN PLATELET VOLUME 8.9 fl (7.4-10.4); MONOCYTES % 10.1 % (2.0-8.0); NEUTROPHILS % 65.3 % (40.0-76.0); PLATELET 206 x1000/uL (130-400); RED BLOOD CELL COUNT 4.73 mill/uL (4.2-5.4); RED CELL DISTRIBUTION WIDTH 15.4 % (11.6-14.6)
[2017-12-08 00:15] LABS: INR 1.1; PROTHROMBIN TIME 11.3 sec (9.4-11.6)
[2017-12-08 00:21] LABS: CHLORIDE 106 mEq/L (98-107)
[2017-12-08] MEDS ORDERED: KETOROLAC 30MG/ML VIAL IV SCH (02:13)
[2017-12-08 03:00] VITALS: BP 122/86
== END 2017-12-08 04:30 | disposition home or self-care (01) ==
LOC: ER 21:44
DX: R10.32 Left lower quadrant pain (principal); R19.7 Diarrhea, unspecified; K21.9 Gastro-esophageal reflux disease without esophagitis; J44.9 Chronic obstructive pulmonary disease, unspecified; E78.00 Pure hypercholesterolemia, unspecified; K42.9 Umbilical hernia without obstruction or gangrene; I10 Essential (primary) hypertension; G47.30 Sleep apnea, unspecified; Z79.82 Long term (current) use of aspirin; Z88.0 Allergy status to penicillin; Z88.1 Allergy status to other antibiotic agents; Z90.49 Acquired absence of other specified parts of digestive tract; Z90.710 Acquired absence of both cervix and uterus; Z95.0 Presence of cardiac pacemaker; Z98.890 Other specified postprocedural states; Z96.659 Presence of unspecified artificial knee joint
CPT/HCPCS: 36415; 71045; 74176; 80053; 83605; 83690; 85025; 85610; 93005; 96361; 96374; 96375; 99285; J1885; J2405; J3490; J7030; Z7610

== ENCOUNTER 2018-06-26 08:02 | Emergency (ER) | payer MEDICAID ==
[~2018-06-26] VITALS: Ht 167.6 cm; Wt 123.0 kg
[~2018-06-26 08:02] MED LIST changes: -AZIT500T2 PO; -IPRA4AER IH
[2018-06-26] MEDS ORDERED: PREDNISONE 20MG TABLET PO STA (08:38)
[2018-06-26] MEDS ORDERED: KETOROLAC 60MG/2ML VIAL IM STA (08:38)
[2018-06-26] MEDS ORDERED: ALBUTEROL (0.083%) 2.5MG/3ML NEB HHN STA (08:38)
[2018-06-26] MEDS ORDERED: IPRATROPIUM BROMIDE (0.02%) 0.5MG/2.5ML NEB HHN STA (08:38)
[2018-06-26] MEDS ORDERED: PREDNISONE 20MG TABLET PO ONE (09:45)
[2018-06-26 10:42] VITALS: BP 122/69
== END 2018-06-26 10:58 | disposition home or self-care (01) ==
LOC: ER 08:02
DX: J44.9 Chronic obstructive pulmonary disease, unspecified (principal); I11.0 Hypertensive heart disease with heart failure; I50.9 Heart failure, unspecified; Z90.49 Acquired absence of other specified parts of digestive tract; Z90.710 Acquired absence of both cervix and uterus; Z79.82 Long term (current) use of aspirin; Z79.899 Other long term (current) drug therapy; Z88.0 Allergy status to penicillin; Z91.018 Allergy to other foods; Z88.1 Allergy status to other antibiotic agents
CPT/HCPCS: 71045; 94644; 96372; 99285; J1885; J7512; J7611

== ENCOUNTER 2018-09-13 07:23 | Inpatient (IN) | payer MEDICAID ==
[~2018-09-13] VITALS: Ht 167.6 cm; Wt 145.6 kg
[2018-09-13 08:54] LABS: BASOPHILS % 0.8 % (0.0-2.0); EOSINOPHILS % 0.4 % (0.0-5.0); HEMATOCRIT. 38.4 % (36.0-48.0); HEMOGLOBIN. 12.4 g/dL (12.0-16.0); LYMPHOCYTES % 26.1 % (20.0-50.0); MEAN CORPUSCULAR HEMOGLOBIN 27.7 pg (28.0-32.0); MEAN CORPUSCULAR VOLUME 85.7 fL (81.0-99.0); MONOCYTES % 8.9 % (2.0-8.0); NEUTROPHILS % 63.8 % (40.0-76.0); PLATELET 214 x1000/uL (130-400); RED BLOOD CELL COUNT 4.48 mill/uL (4.2-5.4); RED CELL DISTRIBUTION WIDTH 15.3 % (11.6-14.6)
[2018-09-13 09:00] LABS: CHLORIDE 111 mEq/L (98-107)
[2018-09-13] MEDS ORDERED: IPRATROPIUM BROMIDE (0.02%) 0.5MG/2.5ML NEB HHN STA (09:16)
[2018-09-13] MEDS ORDERED: ALBUTEROL (0.083%) 2.5MG/3ML NEB HHN STA (09:16)
[2018-09-13] MEDS ORDERED: METHYLPREDNISOLONE SOD SUCC 125 MG/2 ML VIAL IV STA (09:16)
[2018-09-13] MEDS ORDERED: IBUPROFEN 600MG TABLET PO ONE (11:15)
[2018-09-13] MEDS ORDERED: MAGNESIUM/ALUMINUM HYDROXIDE/SIMETHICONE 30ML UDC PO PRN (12:45)
[2018-09-13] MEDS ORDERED: CLONIDINE 0.1MG TABLET PO PRN (12:45)
[2018-09-13] MEDS ORDERED: IPRATROPIUM/ALBUTEROL 0.5-3(2.5)MG/3ML NEB INH PRN (12:45)
[2018-09-13] MEDS ORDERED: DIPHENHYDRAMINE 50MG/ML VIAL IV PRN (12:45)
[2018-09-13] MEDS ORDERED: GUAIFENESIN 200MG/10ML SUGAR FREE UDC PO PRN (12:45)
[2018-09-13] MEDS ORDERED: ONDANSETRON HCL 4MG/2ML INJ IV PRN (12:45)
[2018-09-13] MEDS ORDERED: DOCUSATE SODIUM 100MG CAPSULE PO PRN (12:45)
[2018-09-13 13:00] LABS: PHOSPHORUS 2.9 mg/dL (2.5-4.9)
[2018-09-13] MEDS ORDERED: ENOXAPARIN 40MG/0.4ML SYR SUBCUT NR (13:00)
[2018-09-13] MEDS ORDERED: GUAIFENESIN-DM 200MG-20MG/10ML UDC PO PRN (13:15)
[2018-09-13 16:00] VITALS: BP 116/65
[2018-09-13] MEDS: IPRATROPIUM/ALBUTEROL 0.5-3(2.5)MG/3ML NEB HHN SCH ×2 (16:17→21:22)
[2018-09-13] MEDS: LORATADINE 10MG TABLET PO SCH (17:16)
[2018-09-13] MEDS: METHYLPREDNISOLONE SOD SUCC 40 MG/ML VIAL IV SCH (17:26)
[2018-09-13] MEDS: ENOXAPARIN 40MG/0.4ML SYR SUBCUT SCH (17:27)
[2018-09-13] MEDS ORDERED: CLOP75TA16 MT (17:44)
[2018-09-13] MEDS ORDERED: COR12 MT (17:44)
[2018-09-13] MEDS ORDERED: SERT50TA MT (17:44)
[2018-09-13 19:01] LABS: BG BASE EXCESS 0.3 mmol/L (-2.0-2.0); BG CARBOXYHEMOGLOBIN 0.6 % (0.5-1.5); BG DEOXYHEMOGLOBIN 3.8 % (0.0-5.0); BG FRACTION INSPIRED OXYGEN 21; BG HCO3 ACT 25.1 mmol/L (22.0-26.0); BG METHEMOGLOBIN 0.1 % (0.0-1.5); BG OXYGEN SATURATION 96.2 % (92.0-98.5); BG OXYHEMOGLOBIN 95.5 % (94.0-97.0); BG PCO2 40.9 mmHg (35.0-45.0); BG PH 7.405 (7.350-7.450); BG PO2 81.9 mmHg (75.0-100.0); BG SAMPLE SITE RIGHT RADIAL; BG TOTAL HEMOGLOBIN 12.8 g/dL (12.0-18.0); BG VENT MODE ROOM AIR
[2018-09-13 20:00] VITALS: BP 129/78
[2018-09-13] MEDS ORDERED: DEXTROSE 50% WATER 50ML SYRINGE IV PRN (20:00)
[2018-09-13] MEDS: FAMOTIDINE 20MG/2ML VIAL IV SCH (20:34)
[2018-09-13] MEDS: MORPHINE SULFATE 4 MG/ML CPJ (NOT FOR IM USE) IV PRN (20:34)
[2018-09-13] MEDS: INSULIN LISPRO 100 UNITS/ML SUBCUT SCH (20:35)
[2018-09-13] MEDS: BLOOD SUGAR DIAGNOSTIC STRIP TEST SCH (20:35)
[2018-09-13] MEDS: FLUTICASONE PROPIONATE 50MCG/SPRAY BOTTLE BOTHNSTRLS SCH (20:35)
[2018-09-14] VITALS: BP 118/69
[2018-09-14] MEDS: METHYLPREDNISOLONE SOD SUCC 40 MG/ML VIAL IV SCH ×3 (01:03→18:35)
[2018-09-14] MEDS: IPRATROPIUM/ALBUTEROL 0.5-3(2.5)MG/3ML NEB HHN SCH ×6 (01:06→21:16)
[2018-09-14] MEDS: MORPHINE SULFATE 4 MG/ML CPJ (NOT FOR IM USE) IV PRN ×4 (01:58→18:17)
[2018-09-14 04:00] VITALS: BP 149/89
[2018-09-14] MEDS: ENOXAPARIN 40MG/0.4ML SYR SUBCUT SCH ×2 (06:01→18:36)
[2018-09-14] MEDS: BLOOD SUGAR DIAGNOSTIC STRIP TEST SCH ×4 (06:01→21:46)
[2018-09-14] MEDS: INSULIN LISPRO 100 UNITS/ML SUBCUT SCH ×4 (06:41→21:00)
[2018-09-14 08:00] LABS: BASOPHILS % 0.1 % (0.0-2.0); HEMATOCRIT. 36.8 % (36.0-48.0); HEMOGLOBIN. 11.8 g/dL (12.0-16.0); MEAN CORPUSCULAR HEMOGLOBIN 27.6 pg (28.0-32.0); MEAN CORPUSCULAR VOLUME 85.9 fL (81.0-99.0); MEAN PLATELET VOLUME 9.3 fl (7.4-10.4); MONOCYTES % 5.6 % (2.0-8.0); NEUTROPHILS % 74.3 % (40.0-76.0); PLATELET 211 x1000/uL (130-400); RED BLOOD CELL COUNT 4.29 mill/uL (4.2-5.4); RED CELL DISTRIBUTION WIDTH 15.5 % (11.6-14.6)
[2018-09-14 08:06] LABS: CHLORIDE 108 mEq/L (98-107)
[2018-09-14 08:16] LABS: LDL CHOLESTEROL 124 mg/dL (5-100)
[2018-09-14 08:18] LABS: HDL CHOLESTEROL 89 mg/dL (40-59)
[2018-09-14] MEDS: FLUTICASONE PROPIONATE 50MCG/SPRAY BOTTLE BOTHNSTRLS SCH (08:59)
[2018-09-14] MEDS: FAMOTIDINE 20MG/2ML VIAL IV SCH ×2 (08:59→21:32)
[2018-09-14] MEDS: LORATADINE 10MG TABLET PO SCH (08:59)
[2018-09-14] MEDS ORDERED: OMEPRAZOLE 20MG CAPSULE EXTENDED RELEASE PO SCH (09:00)
[2018-09-14] MEDS ORDERED: LORATADINE 10MG TABLET PO SCH (09:30)
[2018-09-14] MEDS: DOCUSATE SODIUM 250MG CAPSULE PO SCH ×2 (09:30→17:00)
[2018-09-14] MEDS ORDERED: AMLODIPINE 2.5MG TABLET PO SCH (09:30)
[2018-09-14] MEDS ORDERED: CARVEDILOL 12.5MG TABLET PO SCH (09:30)
[2018-09-14] MEDS: MORPHINE SULFATE 30MG TABLET SR PO SCH ×2 (11:34→21:34)
[2018-09-14] MEDS: POTASSIUM CHLORIDE 20MEQ TABLET SR PO SCH (11:48)
[2018-09-14] MEDS: SERTRALINE HCL 50MG TABLET PO SCH (11:48)
[2018-09-14] MEDS: FOLIC ACID 1MG TABLET PO SCH (11:48)
[2018-09-14] MEDS: LEVETIRACETAM 500MG TABLET PO SCH ×2 (11:48→21:32)
[2018-09-14] MEDS: ASPIRIN 81MG TABLET PO SCH (11:49)
[2018-09-14] MEDS: CLOPIDOGREL 75MG TABLET PO SCH (11:49)
[2018-09-14] MEDS: PHENYTOIN SODIUM EXTENDED 100MG CAPSULE PO SCH ×2 (11:49→18:36)
[2018-09-14] MEDS ORDERED: INFLUENZA VIRUS VACCINE(AFLURIA) 0.5ML SYR IM ONE (12:00)
[2018-09-14 12:06] VITALS: BP 122/70
[2018-09-14] MEDS: AMLODIPINE 2.5MG TABLET PO SCH ×2 (13:22→21:34)
[2018-09-14] MEDS ORDERED: GUAIFENESIN/CODEINE 100-10MG/5ML UDC PO PRN (13:30)
[2018-09-14] MEDS ORDERED: BENZONATATE 100MG CAPSULE PO PRN (13:30)
[2018-09-14] MEDS: LEVOFLOXACIN 250MG TABLET PO SCH (14:45)
[2018-09-14 16:00] VITALS: BP 117/74
[2018-09-14 20:00] VITALS: BP 156/101
[2018-09-14] MEDS: ATORVASTATIN CALCIUM 40MG TABLET PO SCH (21:33)
[2018-09-14] MEDS: AZELASTINE HCL 137MCG/SPRAY NASAL PUMP BOTHNSTRLS SCH (21:34)
[2018-09-15] VITALS: BP 112/72
[2018-09-15] MEDS: MORPHINE SULFATE 4 MG/ML CPJ (NOT FOR IM USE) IV PRN ×3 (00:10→12:54)
[2018-09-15] MEDS: IPRATROPIUM/ALBUTEROL 0.5-3(2.5)MG/3ML NEB HHN SCH ×5 (01:52→21:05)
[2018-09-15] MEDS: METHYLPREDNISOLONE SOD SUCC 40 MG/ML VIAL IV SCH ×3 (02:33→18:13)
[2018-09-15 04:00] VITALS: BP 132/80
[2018-09-15] MEDS: BLOOD SUGAR DIAGNOSTIC STRIP TEST SCH ×4 (06:49→21:00)
[2018-09-15] MEDS: INSULIN LISPRO 100 UNITS/ML SUBCUT SCH ×4 (06:52→21:00)
[2018-09-15] MEDS: ENOXAPARIN 40MG/0.4ML SYR SUBCUT SCH ×2 (07:06→18:14)
[2018-09-15 08:00] VITALS: BP 104/65
[2018-09-15] MEDS: LEVETIRACETAM 500MG TABLET PO SCH ×2 (08:42→21:31)
[2018-09-15] MEDS: DOCUSATE SODIUM 250MG CAPSULE PO SCH ×2 (08:42→18:14)
[2018-09-15] MEDS: SERTRALINE HCL 50MG TABLET PO SCH (08:42)
[2018-09-15] MEDS: CLOPIDOGREL 75MG TABLET PO SCH (08:42)
[2018-09-15] MEDS: FOLIC ACID 1MG TABLET PO SCH (08:42)
[2018-09-15] MEDS: POTASSIUM CHLORIDE 20MEQ TABLET SR PO SCH (08:42)
[2018-09-15] MEDS: ASPIRIN 81MG TABLET PO SCH (08:43)
[2018-09-15] MEDS: PHENYTOIN SODIUM EXTENDED 100MG CAPSULE PO SCH ×2 (08:43→18:13)
[2018-09-15] MEDS: MORPHINE SULFATE 30MG TABLET SR PO SCH ×2 (08:44→21:32)
[2018-09-15] MEDS: LORATADINE 10MG TABLET PO SCH (08:45)
[2018-09-15] MEDS: AZELASTINE HCL 137MCG/SPRAY NASAL PUMP BOTHNSTRLS SCH ×2 (08:46→22:05)
[2018-09-15] MEDS: FAMOTIDINE 20MG/2ML VIAL IV SCH ×2 (08:46→21:31)
[2018-09-15] MEDS: AMLODIPINE 2.5MG TABLET PO SCH ×2 (08:58→21:32)
[2018-09-15 09:37] LABS: BASOPHILS % 0.3 % (0.0-2.0); HEMATOCRIT. 36.6 % (36.0-48.0); HEMOGLOBIN. 11.8 g/dL (12.0-16.0); LYMPHOCYTES % 21.8 % (20.0-50.0); MEAN CORPUSCULAR HEMOGLOBIN 27.9 pg (28.0-32.0); MEAN CORPUSCULAR VOLUME 86.4 fL (81.0-99.0); MEAN PLATELET VOLUME 9.2 fl (7.4-10.4); MONOCYTES % 7.4 % (2.0-8.0); NEUTROPHILS % 70.5 % (40.0-76.0); PLATELET 201 x1000/uL (130-400); RED BLOOD CELL COUNT 4.24 mill/uL (4.2-5.4); RED CELL DISTRIBUTION WIDTH 15.4 % (11.6-14.6)
[2018-09-15 09:39] LABS: CHLORIDE 107 mEq/L (98-107)
[2018-09-15] MEDS: LEVOFLOXACIN 250MG TABLET PO SCH (11:41)
[2018-09-15 12:00] VITALS: BP 122/83
[2018-09-15 16:00] VITALS: BP 116/61
[2018-09-15 20:08] VITALS: BP 112/61
[2018-09-15] MEDS: ATORVASTATIN CALCIUM 40MG TABLET PO SCH (21:32)
[2018-09-16] MEDS: IPRATROPIUM/ALBUTEROL 0.5-3(2.5)MG/3ML NEB HHN SCH ×7 (00:22→23:48)
[2018-09-16 00:43] VITALS: BP 121/74
[2018-09-16] MEDS: MORPHINE SULFATE 4 MG/ML CPJ (NOT FOR IM USE) IV PRN ×4 (00:47→15:57)
[2018-09-16] MEDS: METHYLPREDNISOLONE SOD SUCC 40 MG/ML VIAL IV SCH ×3 (02:39→17:17)
[2018-09-16 04:00] VITALS: BP 115/72
[2018-09-16] MEDS: ENOXAPARIN 40MG/0.4ML SYR SUBCUT SCH ×2 (05:58→17:18)
[2018-09-16] MEDS: BLOOD SUGAR DIAGNOSTIC STRIP TEST SCH ×4 (06:09→20:56)
[2018-09-16] MEDS: INSULIN LISPRO 100 UNITS/ML SUBCUT SCH ×4 (06:09→21:30)
[2018-09-16 08:00] VITALS: BP 121/69
[2018-09-16 08:21] LABS: BASOPHILS % 0.5 % (0.0-2.0); HEMATOCRIT. 37.2 % (36.0-48.0); HEMOGLOBIN. 12.1 g/dL (12.0-16.0); LYMPHOCYTES % 19.7 % (20.0-50.0); MEAN CORPUSCULAR VOLUME 86.1 fL (81.0-99.0); MEAN PLATELET VOLUME 9.1 fl (7.4-10.4); MONOCYTES % 7.3 % (2.0-8.0); NEUTROPHILS % 72.5 % (40.0-76.0); PLATELET 206 x1000/uL (130-400); RED BLOOD CELL COUNT 4.32 mill/uL (4.2-5.4); RED CELL DISTRIBUTION WIDTH 15.1 % (11.6-14.6)
[2018-09-16 08:26] LABS: CHLORIDE 107 mEq/L (98-107)
[2018-09-16] MEDS: SERTRALINE HCL 50MG TABLET PO SCH (08:39)
[2018-09-16] MEDS: FAMOTIDINE 20MG/2ML VIAL IV SCH ×2 (08:39→21:19)
[2018-09-16] MEDS: PHENYTOIN SODIUM EXTENDED 100MG CAPSULE PO SCH ×2 (08:39→17:18)
[2018-09-16] MEDS: POTASSIUM CHLORIDE 20MEQ TABLET SR PO SCH (08:39)
[2018-09-16] MEDS: FOLIC ACID 1MG TABLET PO SCH (08:39)
[2018-09-16] MEDS: AMLODIPINE 2.5MG TABLET PO SCH ×2 (08:40→21:20)
[2018-09-16] MEDS: CLOPIDOGREL 75MG TABLET PO SCH (08:40)
[2018-09-16] MEDS: LORATADINE 10MG TABLET PO SCH (08:40)
[2018-09-16] MEDS: LEVETIRACETAM 500MG TABLET PO SCH ×2 (08:40→21:19)
[2018-09-16] MEDS: ASPIRIN 81MG TABLET PO SCH (08:40)
[2018-09-16] MEDS: DOCUSATE SODIUM 250MG CAPSULE PO SCH ×2 (08:40→17:18)
[2018-09-16] MEDS: MORPHINE SULFATE 30MG TABLET SR PO SCH ×2 (08:41→21:19)
[2018-09-16] MEDS: AZELASTINE HCL 137MCG/SPRAY NASAL PUMP BOTHNSTRLS SCH ×2 (08:44→21:18)
[2018-09-16] MEDS: LEVOFLOXACIN 250MG TABLET PO SCH (10:11)
[2018-09-16 12:00] VITALS: BP 106/66
[2018-09-16 16:00] VITALS: BP 109/57
[2018-09-16 20:00] VITALS: BP 121/70
[2018-09-16] MEDS: ATORVASTATIN CALCIUM 40MG TABLET PO SCH (21:19)
[2018-09-17] VITALS: BP 111/67
[2018-09-17] MEDS: MORPHINE SULFATE 4 MG/ML CPJ (NOT FOR IM USE) IV PRN ×2 (01:46→05:41)
[2018-09-17] MEDS: METHYLPREDNISOLONE SOD SUCC 40 MG/ML VIAL IV SCH ×2 (02:16→10:25)
[2018-09-17 04:00] VITALS: BP 110/73
[2018-09-17] MEDS: IPRATROPIUM/ALBUTEROL 0.5-3(2.5)MG/3ML NEB HHN SCH ×3 (04:22→14:37)
[2018-09-17] MEDS: ENOXAPARIN 40MG/0.4ML SYR SUBCUT SCH (05:36)
[2018-09-17] MEDS: BLOOD SUGAR DIAGNOSTIC STRIP TEST SCH ×2 (06:01→11:45)
[2018-09-17] MEDS: INSULIN LISPRO 100 UNITS/ML SUBCUT SCH ×2 (06:01→12:15)
[2018-09-17 07:42] LABS: BASOPHILS % 0.2 % (0.0-2.0); HEMATOCRIT. 36.4 % (36.0-48.0); HEMOGLOBIN. 11.7 g/dL (12.0-16.0); LYMPHOCYTES % 18.4 % (20.0-50.0); MEAN CORPUSCULAR HEMOGLOBIN 27.7 pg (28.0-32.0); MEAN CORPUSCULAR VOLUME 86.3 fL (81.0-99.0); MEAN PLATELET VOLUME 9.2 fl (7.4-10.4); MONOCYTES % 8.7 % (2.0-8.0); NEUTROPHILS % 72.7 % (40.0-76.0); PLATELET 210 x1000/uL (130-400); RED BLOOD CELL COUNT 4.22 mill/uL (4.2-5.4); RED CELL DISTRIBUTION WIDTH 15.3 % (11.6-14.6)
[2018-09-17 07:46] LABS: CHLORIDE 105 mEq/L (98-107)
[2018-09-17] MEDS: DOCUSATE SODIUM 250MG CAPSULE PO SCH (10:22)
[2018-09-17] MEDS: FOLIC ACID 1MG TABLET PO SCH (10:23)
[2018-09-17] MEDS: SERTRALINE HCL 50MG TABLET PO SCH (10:23)
[2018-09-17] MEDS: PHENYTOIN SODIUM EXTENDED 100MG CAPSULE PO SCH (10:23)
[2018-09-17] MEDS: ASPIRIN 81MG TABLET PO SCH (10:23)
[2018-09-17] MEDS: POTASSIUM CHLORIDE 20MEQ TABLET SR PO SCH (10:23)
[2018-09-17] MEDS: CLOPIDOGREL 75MG TABLET PO SCH (10:23)
[2018-09-17] MEDS: LEVETIRACETAM 500MG TABLET PO SCH (10:23)
[2018-09-17] MEDS: LORATADINE 10MG TABLET PO SCH (10:24)
[2018-09-17] MEDS: LEVOFLOXACIN 250MG TABLET PO SCH (10:24)
[2018-09-17] MEDS: AZELASTINE HCL 137MCG/SPRAY NASAL PUMP BOTHNSTRLS SCH (10:25)
[2018-09-17] MEDS: FAMOTIDINE 20MG/2ML VIAL IV SCH (10:25)
[2018-09-17] MEDS: MORPHINE SULFATE 30MG TABLET SR PO SCH (10:27)
[2018-09-17] MEDS: AMLODIPINE 2.5MG TABLET PO SCH (10:28)
[2018-09-17 16:53] VITALS: BP 143/73
== END 2018-09-17 19:00 | disposition home or self-care (01) | DRG 133 ==
LOC: ER 07:23 → 5WST 12:30 → EDBEDREQ 12:37 → EDBEDREQTM 12:37 → ENRESERV 13:12
PROVIDERS: ADMIT Internal Medicine; ATTEND Internal Medicine
DX: J96.00 Acute respiratory failure, unspecified whether with hypoxia or hypercapnia (principal); I42.0 Dilated cardiomyopathy; J44.0 Chronic obstructive pulmonary disease with (acute) lower respiratory infection; I11.0 Hypertensive heart disease with heart failure; I50.22 Chronic systolic (congestive) heart failure; Z68.43 Body mass index [BMI] 50.0-59.9, adult; J44.1 Chronic obstructive pulmonary disease with (acute) exacerbation; G40.909 Epilepsy, unspecified, not intractable, without status epilepticus; J20.9 Acute bronchitis, unspecified; M94.0 Chondrocostal junction syndrome [Tietze]; R07.89 Other chest pain; G47.33 Obstructive sleep apnea (adult) (pediatric); I25.10 Atherosclerotic heart disease of native coronary artery without angina pectoris; E78.5 Hyperlipidemia, unspecified; Z96.651 Presence of right artificial knee joint; E66.09 Other obesity due to excess calories; E78.00 Pure hypercholesterolemia, unspecified; K59.00 Constipation, unspecified; M54.9 Dorsalgia, unspecified; Z23 Encounter for immunization; Z86.73 Personal history of transient ischemic attack (TIA), and cerebral infarction without residual deficits; Z87.01 Personal history of pneumonia (recurrent); Z87.891 Personal history of nicotine dependence; Z90.710 Acquired absence of both cervix and uterus; Z95.810 Presence of automatic (implantable) cardiac defibrillator; Z88.8 Allergy status to other drugs, medicaments and biological substances; Z88.1 Allergy status to other antibiotic agents; Z88.0 Allergy status to penicillin; Z91.018 Allergy to other foods; Z91.048 Other nonmedicinal substance allergy status; Z79.899 Other long term (current) drug therapy; Z90.49 Acquired absence of other specified parts of digestive tract
CPT/HCPCS: 36415; 36600; 71045; 80048; 80061; 82375; 82805; 82962; 83036; 83735; 83880; 84100; 84443; 84484; 87804; 93005; 93970; 94640; 94660; 96374; 97162; 97166; 99285; C1893; J1650; J1815; J2270; J2920; J2930; J3490; J7611; J7620

== ENCOUNTER 2018-12-02 05:22 | Emergency (ER) | payer MEDICAID ==
[~2018-12-02] VITALS: Ht 195.6 cm; Wt 134.3 kg
[~2018-12-02 05:22] MED LIST changes: +CLOP75TA16 MT; +COR12 MT; +SERT50TA MT
[2018-12-02 08:45] LABS: BASOPHILS % 1.1 % (0.0-2.0); EOSINOPHILS % 3.5 % (0.0-5.0); HEMATOCRIT. 37.7 % (36.0-48.0); HEMOGLOBIN. 12.2 g/dL (12.0-16.0); LYMPHOCYTES % 28.3 % (20.0-50.0); MEAN CORPUSCULAR HEMOGLOBIN 28.1 pg (28.0-32.0); MEAN CORPUSCULAR VOLUME 86.7 fL (81.0-99.0); MEAN PLATELET VOLUME 8.7 fl (7.4-10.4); MONOCYTES % 10.5 % (2.0-8.0); NEUTROPHILS % 56.6 % (40.0-76.0); PLATELET 178 x1000/uL (130-400); RED BLOOD CELL COUNT 4.34 mill/uL (4.2-5.4); RED CELL DISTRIBUTION WIDTH 15.8 % (11.6-14.6)
[2018-12-02 08:49] LABS: CHLORIDE 112 mEq/L (98-107)
[2018-12-02 08:51] LABS: PARTIAL THROMBOPLASTIN TIME 29.2 sec (23.4-31.0); PROTHROMBIN TIME 10.4 sec (9.6-11.0)
[2018-12-02 09:37] LABS: CLARITY URINE CLEAR (CLEAR); COLOR URINE YELLOW (YELLOW); KETONES URINE NEGATIVE (NEGATIVE); LEUKOCYTE ESTERASE URINE NEGATIVE (NEGATIVE); NITRITE URINE NEGATIVE (NEGATIVE); OCCULT BLOOD URINE NEGATIVE (NEGATIVE); PH URINE 5.5 (4.5-8.0); PROTEIN URINE NEGATIVE (NEGATIVE); SPECIFIC GRAVITY URINE 1.021 (1.005-1.030); UROBILINOGEN URINE 0.2 E.U./dL (0.2-1.0)
[2018-12-02 09:53] LABS: *COCAINE SCREEN URINE NEGATIVE (NEGATIVE); METHADONE URINE SCREEN NEGATIVE (NEGATIVE); OPIATES URINE SCREEN NEGATIVE (NEGATIVE)
[2018-12-02 09:54] LABS: *AMPHETAMINES SCREEN URINE NEGATIVE (NEGATIVE); *BARBITURATES SCREEN URINE NEGATIVE (NEGATIVE); *BENZODIAZEPINES SCREEN URINE NEGATIVE (NEGATIVE); CANNABINOID URINE SCREEN NEGATIVE (NEGATIVE); PHENCYCLIDINE URINE SCREEN NEGATIVE (NEGATIVE)
[2018-12-02] MEDS ORDERED: ASPIRIN 81MG TABLET PO ONE (10:30)
[2018-12-02] MEDS ORDERED: MORPHINE SULFATE 2 MG/ML CPJ (NOT FOR IM USE) IV ONE ×2 (10:30→14:15)
[2018-12-02 14:34] VITALS: BP 125/77
== END 2018-12-02 15:25 | disposition short-term general hospital (02) ==
LOC: ER 05:22
DX: R07.89 Other chest pain (principal); J44.9 Chronic obstructive pulmonary disease, unspecified; I10 Essential (primary) hypertension; Z95.0 Presence of cardiac pacemaker; Z90.49 Acquired absence of other specified parts of digestive tract; Z90.710 Acquired absence of both cervix and uterus; Z79.82 Long term (current) use of aspirin; Z79.899 Other long term (current) drug therapy; Z88.0 Allergy status to penicillin; Z88.6 Allergy status to analgesic agent; Z88.1 Allergy status to other antibiotic agents; Z91.018 Allergy to other foods
CPT/HCPCS: 36415; 71045; 80053; 80305; 81003; 83880; 84484; 85025; 85610; 85730; 93005; 96374; 96376; 99285; J2270; Z7610

== ENCOUNTER 2019-01-28 07:29 | Emergency (ER) | payer MEDICAID ==
[~2019-01-28] VITALS: Ht 167.6 cm; Wt 131.0 kg
[~2019-01-28 07:29] MED LIST changes: -CLOP75TA16 MT; +CLOP75TA4 MT
[2019-01-28 09:15] LABS: BASOPHILS % 0.9 % (0.0-2.0); CHLORIDE 111 mEq/L (98-107); EOSINOPHILS % 3.9 % (0.0-5.0); HEMATOCRIT. 35.4 % (36.0-48.0); HEMOGLOBIN. 11.7 g/dL (12.0-16.0); LYMPHOCYTES % 40.1 % (20.0-50.0); MEAN CORPUSCULAR HEMOGLOBIN 28.8 pg (28.0-32.0); MEAN CORPUSCULAR VOLUME 87.1 fL (81.0-99.0); MONOCYTES % 9.4 % (2.0-8.0); NEUTROPHILS % 45.7 % (40.0-76.0); PLATELET 183 x1000/uL (130-400); RED BLOOD CELL COUNT 4.06 mill/uL (4.2-5.4); RED CELL DISTRIBUTION WIDTH 15.9 % (11.6-14.6)
[2019-01-28] MEDS ORDERED: MORPHINE SULFATE 4 MG/ML CPJ (NOT FOR IM USE) IV ONE ×2 (10:15→12:15)
[2019-01-28] MEDS ORDERED: ASPIRIN 325MG EC TABLET PO ONE (10:15)
[2019-01-28] MEDS ORDERED: ONDANSETRON HCL 4MG/2ML INJ IV ONE ×2 (10:15→12:15)
[2019-01-28 12:50] VITALS: BP 111/64
== END 2019-01-28 14:43 | disposition short-term general hospital (02) ==
LOC: ER 07:29 → CANBEDREQ 18:19
DX: R07.89 Other chest pain (principal); I50.9 Heart failure, unspecified; I25.10 Atherosclerotic heart disease of native coronary artery without angina pectoris; J44.9 Chronic obstructive pulmonary disease, unspecified; Z95.0 Presence of cardiac pacemaker; Z96.651 Presence of right artificial knee joint; Z88.3 Allergy status to other anti-infective agents; Z88.0 Allergy status to penicillin; Z91.018 Allergy to other foods; Z91.048 Other nonmedicinal substance allergy status
CPT/HCPCS: 36415; 71045; 80048; 83880; 84484; 85025; 93005; 96374; 96375; 96376; 99285; C1893; J2270; J2405

== ENCOUNTER 2019-02-13 16:48 | Emergency (ER) | payer MEDICAID ==
[~2019-02-13] VITALS: Ht 167.6 cm; Wt 130.0 kg
[2019-02-13] MEDS ORDERED: MORPHINE SULFATE 4 MG/ML CPJ (NOT FOR IM USE) IV STA (23:48)
[2019-02-13] MEDS ORDERED: ONDANSETRON HCL 4MG/2ML INJ IV STA (23:48)
[2019-02-14 02:00] LABS: HEMATOCRIT. 37.6 % (36.0-48.0); HEMOGLOBIN. 12.4 g/dL (12.0-16.0); MEAN CORPUSCULAR HEMOGLOBIN 28.7 pg (28.0-32.0); MONOCYTES % 8.3 % (2.0-8.0); NEUTROPHILS % 57.7 % (40.0-76.0); PLATELET 201 x1000/uL (130-400); RED BLOOD CELL COUNT 4.32 mill/uL (4.2-5.4); RED CELL DISTRIBUTION WIDTH 15.1 % (11.6-14.6)
[2019-02-14 03:08] LABS: CHLORIDE 110 mEq/L (98-107)
[2019-02-14 05:09] VITALS: BP 105/65
== END 2019-02-14 05:12 | disposition home or self-care (01) ==
LOC: ER 16:48
DX: R07.81 Pleurodynia (principal); J44.9 Chronic obstructive pulmonary disease, unspecified; I50.9 Heart failure, unspecified; I25.10 Atherosclerotic heart disease of native coronary artery without angina pectoris; Z88.6 Allergy status to analgesic agent; Z88.3 Allergy status to other anti-infective agents; Z88.0 Allergy status to penicillin; Z91.018 Allergy to other foods; Z95.810 Presence of automatic (implantable) cardiac defibrillator; Z87.891 Personal history of nicotine dependence; Z96.659 Presence of unspecified artificial knee joint
CPT/HCPCS: 36415; 71045; 80053; 83690; 84484; 85025; 93005; 96374; 96375; 99284; J2270; J2405

== ENCOUNTER 2019-03-03 07:19 | Emergency (ER) | payer MEDICAID, MEDICARE ==
[~2019-03-03] VITALS: Ht 167.6 cm; Wt 131.3 kg
[2019-03-03] MEDS ORDERED: MORPHINE SULFATE 10 MG/ML CPJ IM ONE (08:30)
[2019-03-03] MEDS ORDERED: MORPHINE SULFATE 4 MG/ML CPJ (NOT FOR IM USE) IV ONE (10:00)
[2019-03-03 11:21] LABS: BASOPHILS % 0.7 % (0.0-2.0); EOSINOPHILS % 3.1 % (0.0-5.0); HEMATOCRIT. 37.9 % (36.0-48.0); HEMOGLOBIN. 12.6 g/dL (12.0-16.0); MEAN CORPUSCULAR HEMOGLOBIN 28.7 pg (28.0-32.0); MEAN CORPUSCULAR VOLUME 86.5 fL (81.0-99.0); MEAN PLATELET VOLUME 9.2 fl (7.4-10.4); MONOCYTES % 8.4 % (2.0-8.0); NEUTROPHILS % 50.8 % (40.0-76.0); PLATELET 203 x1000/uL (130-400); RED BLOOD CELL COUNT 4.39 mill/uL (4.2-5.4); RED CELL DISTRIBUTION WIDTH 15.2 % (11.6-14.6)
[2019-03-03 11:22] LABS: CHLORIDE 110 mEq/L (98-107)
[2019-03-03] MEDS ORDERED: ACETAMINOPHEN 325MG TABLET PO ONE (12:45)
[2019-03-03 13:52] VITALS: BP 122/68
== END 2019-03-03 14:49 | disposition short-term general hospital (02) ==
LOC: ER 07:19 → SUPCPDRO 10:57 → CANRESERV 14:22 → ENRESERV 14:22 → ER 14:49 → CANBEDREQ 14:49
DX: J44.9 Chronic obstructive pulmonary disease, unspecified (principal); I11.0 Hypertensive heart disease with heart failure; I50.9 Heart failure, unspecified; E78.5 Hyperlipidemia, unspecified; M19.90 Unspecified osteoarthritis, unspecified site; I67.1 Cerebral aneurysm, nonruptured; G47.30 Sleep apnea, unspecified; Z96.651 Presence of right artificial knee joint; Z88.0 Allergy status to penicillin; Z88.5 Allergy status to narcotic agent; Z88.1 Allergy status to other antibiotic agents; Z91.018 Allergy to other foods; Z79.899 Other long term (current) drug therapy; Z90.49 Acquired absence of other specified parts of digestive tract; Z90.710 Acquired absence of both cervix and uterus; Z95.0 Presence of cardiac pacemaker
CPT/HCPCS: 36415; 70450; 72125; 80048; 85025; 96372; 96374; 99285; J2270; 99284

== ENCOUNTER 2019-05-03 08:47 | Emergency (ER) | payer MEDICARE ==
[~2019-05-03] VITALS: Ht 167.6 cm; Wt 131.0 kg
[2019-05-03] MEDS ORDERED: DIAZEPAM 5 MG TABLET PO ONE (10:00)
[2019-05-03] MEDS ORDERED: ONDANSETRON 4MG ODT PO ONE (11:15)
[2019-05-03] MEDS ORDERED: HYDROCODONE/ACETAMINOPHEN 5/325MG TABLET PO ONE (11:15)
[2019-05-03 12:30] VITALS: BP 112/73
== END 2019-05-03 12:45 | disposition home or self-care (01) ==
LOC: ER 08:47
DX: M54.12 Radiculopathy, cervical region (principal); R51 Headache; M25.512 Pain in left shoulder; G40.909 Epilepsy, unspecified, not intractable, without status epilepticus; I11.0 Hypertensive heart disease with heart failure; I50.9 Heart failure, unspecified; J44.9 Chronic obstructive pulmonary disease, unspecified; Z95.0 Presence of cardiac pacemaker; Z98.890 Other specified postprocedural states; Z79.82 Long term (current) use of aspirin; Z79.899 Other long term (current) drug therapy; Z88.0 Allergy status to penicillin; Z88.5 Allergy status to narcotic agent; Z88.1 Allergy status to other antibiotic agents; Z91.018 Allergy to other foods
CPT/HCPCS: 70450; 72125; 73030; 99284; Q0162; L0172

== ENCOUNTER 2019-05-19 23:54 | Emergency (ER) | payer MEDICARE ==
[~2019-05-19] VITALS: Ht 167.6 cm; Wt 131.0 kg
[2019-05-20] MEDS ORDERED: ALBUTEROL (0.083%) 2.5MG/3ML NEB HHN STA (02:03)
[2019-05-20] MEDS ORDERED: ONDANSETRON HCL 4MG/2ML INJ IV STA (02:03)
[2019-05-20] MEDS ORDERED: PREDNISONE 20MG TABLET PO STA (02:03)
[2019-05-20] MEDS ORDERED: MORPHINE SULFATE 4 MG/ML CPJ (NOT FOR IM USE) IV STA (02:03)
[2019-05-20] MEDS ORDERED: IPRATROPIUM BROMIDE (0.02%) 0.5MG/2.5ML NEB HHN STA (02:03)
[2019-05-20] MEDS ORDERED: METHOCARBAMOL 500MG TABLET PO ONE (02:15)
[2019-05-20 03:43] LABS: BASOPHILS % 0.8 % (0.0-2.0); EOSINOPHILS % 1.1 % (0.0-5.0); HEMATOCRIT. 40.8 % (36.0-48.0); HEMOGLOBIN. 13.2 g/dL (12.0-16.0); MEAN CORPUSCULAR HEMOGLOBIN 28.1 pg (28.0-32.0); MEAN CORPUSCULAR VOLUME 86.6 fL (81.0-99.0); MEAN PLATELET VOLUME 9.2 fl (7.4-10.4); MONOCYTES % 9.4 % (2.0-8.0); NEUTROPHILS % 64.7 % (40.0-76.0); PLATELET 182 x1000/uL (130-400); RED BLOOD CELL COUNT 4.71 mill/uL (4.2-5.4); RED CELL DISTRIBUTION WIDTH 16.2 % (11.6-14.6)
[2019-05-20 03:46] LABS: CHLORIDE 111 mEq/L (98-107)
[2019-05-20 05:30] VITALS: BP 117/87
== END 2019-05-20 05:58 | disposition home or self-care (01) ==
LOC: ER 23:54
DX: J44.1 Chronic obstructive pulmonary disease with (acute) exacerbation (principal); I25.10 Atherosclerotic heart disease of native coronary artery without angina pectoris; D57.1 Sickle-cell disease without crisis; Z95.0 Presence of cardiac pacemaker
CPT/HCPCS: 36415; 71045; 80053; 83880; 84484; 85025; 93005; 94640; 96374; 96375; 99284; J2270; J2405; J7512; J7611; Z7610

== ENCOUNTER 2019-06-27 09:26 | Inpatient (IN) | payer MEDICARE ==
[2019-06-27] VITALS (10 sets, daily range): BP systolic 112–171; BP diastolic 59–90
[~2019-06-27] VITALS: Ht 167.6 cm; Wt 138.1 kg
[2019-06-27] MEDS ORDERED: METHYLPREDNISOLONE SOD SUCC 125 MG/2 ML VIAL IV STA (10:44)
[2019-06-27] MEDS ORDERED: IPRATROPIUM BROMIDE (0.02%) 0.5MG/2.5ML NEB HHN STA (10:44)
[2019-06-27] MEDS ORDERED: ALBUTEROL (0.083%) 2.5MG/3ML NEB HHN STA (10:44)
[2019-06-27 11:30] LABS: BASOPHILS % 0.7 % (0.0-2.0); EOSINOPHILS % 3.5 % (0.0-5.0); HEMATOCRIT. 36.8 % (36.0-48.0); HEMOGLOBIN. 11.9 g/dL (12.0-16.0); MEAN CORPUSCULAR HEMOGLOBIN 27.6 pg (28.0-32.0); MEAN CORPUSCULAR VOLUME 85.7 fL (81.0-99.0); MEAN PLATELET VOLUME 8.9 fl (7.4-10.4); MONOCYTES % 9.3 % (2.0-8.0); NEUTROPHILS % 44.5 % (40.0-76.0); PLATELET 208 x1000/uL (130-400); RED CELL DISTRIBUTION WIDTH 16.5 % (11.6-14.6)
[2019-06-27 11:34] LABS: CHLORIDE 111 mEq/L (98-107)
[2019-06-27] MEDS ORDERED: MORPHINE SULFATE 4 MG/ML CPJ (NOT FOR IM USE) IV ONE (12:00)
[2019-06-27] MEDS ORDERED: ENOXAPARIN 100MG/ML SYR SUBCUT ONE (12:15)
[2019-06-27] MEDS ORDERED: ASPIRIN 325MG EC TABLET PO ONE (12:15)
[2019-06-27] MEDS ORDERED: LIDOCAINE HCL 1% 20ML VIAL (Pyxis) INJ ONE (13:07)
[2019-06-27] MEDS ORDERED: IODIXANOL 320MG/ML 100 ML BOTTLE IV ONE (13:08)
[2019-06-27] MEDS ORDERED: MIDAZOLAM HCL 2 MG/2 ML VIAL ONE (13:11)
[2019-06-27] MEDS ORDERED: FENTANYL CITRATE/PF 50MCG/ML 2ML VIAL ONE (13:11)
[2019-06-27] MEDS ORDERED: ATROPINE SULFATE 1MG/10ML SYR IV PRN (14:00)
[2019-06-27] MEDS ORDERED: ACETAMINOPHEN 325MG TABLET PO PRN (14:00)
[2019-06-27] MEDS ORDERED: MORPHINE SULFATE 2 MG/ML CPJ (NOT FOR IM USE) IV PRN (14:00)
[2019-06-27] MEDS ORDERED: SODIUM CHLORIDE 0.45% 500 ML IV ONE (14:00)
[2019-06-27] MEDS ORDERED: ONDANSETRON HCL 4MG/2ML INJ IV PRN (14:00)
[2019-06-27] MEDS ORDERED: SODIUM CHLORIDE 0.45% 1,000 ML IV ONE (15:30)
[2019-06-27] MEDS: METHYLPREDNISOLONE SOD SUCC 40 MG/ML VIAL IV SCH (16:33)
[2019-06-27] MEDS ORDERED: LEVOFLOXACIN 500MG PREMIX 100 ML IV SCH (18:00)
[2019-06-27] MEDS: AMLODIPINE 2.5MG TABLET PO SCH (20:41)
[2019-06-27] MEDS: MORPHINE SULFATE 2 MG/ML CPJ (NOT FOR IM USE) IV PRN (20:42)
[2019-06-28] VITALS (11 sets, daily range): BP systolic 118–170; BP diastolic 58–112
[2019-06-28] MEDS: MORPHINE SULFATE 2 MG/ML CPJ (NOT FOR IM USE) IV PRN ×2 (04:13→10:37)
[2019-06-28 06:21] LABS: BASOPHILS % 0.3 % (0.0-2.0); EOSINOPHILS % 0.6 % (0.0-5.0); HEMATOCRIT. 35.8 % (36.0-48.0); HEMOGLOBIN. 11.6 g/dL (12.0-16.0); MEAN CORPUSCULAR HEMOGLOBIN 27.7 pg (28.0-32.0); MEAN CORPUSCULAR VOLUME 85.5 fL (81.0-99.0); MEAN PLATELET VOLUME 9.4 fl (7.4-10.4); MONOCYTES % 8.6 % (2.0-8.0); NEUTROPHILS % 59.5 % (40.0-76.0); PLATELET 204 x1000/uL (130-400); RED BLOOD CELL COUNT 4.19 mill/uL (4.2-5.4); RED CELL DISTRIBUTION WIDTH 16.2 % (11.6-14.6)
[2019-06-28 06:34] LABS: CHLORIDE 109 mEq/L (98-107)
[2019-06-28] MEDS: METHYLPREDNISOLONE SOD SUCC 40 MG/ML VIAL IV SCH (08:56)
[2019-06-28] MEDS: AMLODIPINE 2.5MG TABLET PO SCH (08:58)
[2019-06-28] MEDS ORDERED: ASPIRIN 325MG TABLET PO SCH (09:00)
== END 2019-06-28 14:06 | disposition home or self-care (01) | DRG 190 ==
LOC: ER 09:26 → 3WST 12:29
PROVIDERS: ADMIT Internal Medicine; ATTEND Internal Medicine
PROC: 4A023N7 Measurement of Cardiac Sampling and Pressure, Left Heart, Percutaneous Approach (ICD-10-PCS; principal; 2019-06-27)
PROC: B2111ZZ Fluoroscopy of Multiple Coronary Arteries using Low Osmolar Contrast (ICD-10-PCS; 2019-06-27)
DX: I21.4 Non-ST elevation (NSTEMI) myocardial infarction (principal); I42.0 Dilated cardiomyopathy; I50.9 Heart failure, unspecified; I11.0 Hypertensive heart disease with heart failure; Z86.73 Personal history of transient ischemic attack (TIA), and cerebral infarction without residual deficits; I20.0 Unstable angina; Z68.41 Body mass index [BMI] 40.0-44.9, adult; E11.9 Type 2 diabetes mellitus without complications; J44.9 Chronic obstructive pulmonary disease, unspecified; E66.09 Other obesity due to excess calories; Z96.659 Presence of unspecified artificial knee joint; E78.5 Hyperlipidemia, unspecified; Z87.891 Personal history of nicotine dependence; Z82.49 Family history of ischemic heart disease and other diseases of the circulatory system; Z88.0 Allergy status to penicillin; Z82.3 Family history of stroke; Z88.1 Allergy status to other antibiotic agents; Z91.018 Allergy to other foods; Z88.5 Allergy status to narcotic agent; Z90.710 Acquired absence of both cervix and uterus; Z90.49 Acquired absence of other specified parts of digestive tract; Z95.0 Presence of cardiac pacemaker; Z88.6 Allergy status to analgesic agent; Z79.899 Other long term (current) drug therapy; Z79.52 Long term (current) use of systemic steroids; Z79.02 Long term (current) use of antithrombotics/antiplatelets; Z79.82 Long term (current) use of aspirin
CPT/HCPCS: 36415; 71045; 80048; 83880; 84484; 93005; 93306; 93458; 94640; 99291; C1769; C1887; C1893; J1644; J1956; J2250; J2270; J2920; J2930; J3010; J3490; J7611; Q9967

== ENCOUNTER 2019-07-07 08:10 | Emergency (ER) | payer MEDICARE ==
[~2019-07-07] VITALS: Ht 162.6 cm; Wt 128.0 kg
[2019-07-07] MEDS ORDERED: ALBUTEROL (0.083%) 2.5MG/3ML NEB HHN STA (08:36)
[2019-07-07] MEDS ORDERED: METHYLPREDNISOLONE SOD SUCC 125 MG/2 ML VIAL IV STA (08:36)
[2019-07-07] MEDS ORDERED: IPRATROPIUM BROMIDE (0.02%) 0.5MG/2.5ML NEB HHN STA (08:36)
[2019-07-07] MEDS ORDERED: MAGNESIUM 2 G PREMIX 50 ML IV STA (08:36)
[2019-07-07] MEDS ORDERED: IPRATROPIUM/ALBUTEROL 0.5-3(2.5)MG/3ML NEB ONE (08:54)
[2019-07-07] MEDS ORDERED: ONDANSETRON HCL 4MG/2ML INJ IV ONE (09:45)
[2019-07-07] MEDS ORDERED: MORPHINE SULFATE 4 MG/ML CPJ (NOT FOR IM USE) IV ONE (09:45)
[2019-07-07 10:20] LABS: CHLORIDE 112 mEq/L (98-107)
[2019-07-07 10:28] LABS: EOSINOPHILS % 3.5 % (0.0-5.0); HEMATOCRIT. 40.3 % (36.0-48.0); HEMOGLOBIN. 13.1 g/dL (12.0-16.0); LYMPHOCYTES % 23.6 % (20.0-50.0); MEAN CORPUSCULAR HEMOGLOBIN 27.7 pg (28.0-32.0); MEAN CORPUSCULAR VOLUME 85.2 fL (81.0-99.0); MONOCYTES % 8.2 % (2.0-8.0); NEUTROPHILS % 63.7 % (40.0-76.0); RED BLOOD CELL COUNT 4.73 mill/uL (4.2-5.4)
[2019-07-07 11:06] LABS: PLATELET 194 x1000/uL (130-400)
[2019-07-07 12:15] VITALS: BP 112/68
== END 2019-07-07 12:22 | disposition home or self-care (01) ==
LOC: ER 08:10 → CANBEDREQ 20:33
DX: J44.1 Chronic obstructive pulmonary disease with (acute) exacerbation (principal); I11.0 Hypertensive heart disease with heart failure; I50.9 Heart failure, unspecified; I25.10 Atherosclerotic heart disease of native coronary artery without angina pectoris; Z90.49 Acquired absence of other specified parts of digestive tract; Z90.710 Acquired absence of both cervix and uterus; Z95.0 Presence of cardiac pacemaker; Z79.899 Other long term (current) drug therapy; Z79.82 Long term (current) use of aspirin; Z88.0 Allergy status to penicillin; Z88.5 Allergy status to narcotic agent
CPT/HCPCS: 36415; 71045; 80053; 80185; 83605; 83880; 84145; 84484; 85025; 85610; 87040; 93005; 94640; 96365; 96366; 96375; 99284; J2270; J2405; J2930; J3475; J7611; J7620; Z7610

== ENCOUNTER 2019-07-12 19:04 | Emergency (ER) | payer MEDICARE ==
[~2019-07-12] VITALS: Ht 167.6 cm; Wt 131.0 kg
[2019-07-12] MEDS ORDERED: MORPHINE SULFATE 4 MG/ML CPJ (NOT FOR IM USE) IV STA (22:36)
[2019-07-12] MEDS ORDERED: ONDANSETRON HCL 4MG/2ML INJ IV STA (22:36)
[2019-07-12] MEDS ORDERED: MECLIZINE 25MG TABLET PO ONE (22:45)
[2019-07-12 23:03] LABS: EOSINOPHILS % 0.3 % (0.0-5.0); HEMATOCRIT. 36.2 % (36.0-48.0); HEMOGLOBIN. 11.7 g/dL (12.0-16.0); MEAN CORPUSCULAR HEMOGLOBIN 27.7 pg (28.0-32.0); MEAN CORPUSCULAR VOLUME 85.3 fL (81.0-99.0); MEAN PLATELET VOLUME 8.9 fl (7.4-10.4); MONOCYTES % 6.4 % (2.0-8.0); NEUTROPHILS % 65.3 % (40.0-76.0); PLATELET 219 x1000/uL (130-400); RED BLOOD CELL COUNT 4.24 mill/uL (4.2-5.4); RED CELL DISTRIBUTION WIDTH 16.1 % (11.6-14.6)
[2019-07-12 23:08] LABS: CHLORIDE 110 mEq/L (98-107)
[2019-07-12 23:10] LABS: PROTHROMBIN TIME 10.3 sec (9.6-11.0)
[2019-07-12 23:11] LABS: ETHANOL BLOOD < 10 mg/dL
[2019-07-13 03:00] VITALS: BP 118/78
== END 2019-07-13 03:00 | disposition home or self-care (01) ==
LOC: ER 19:04
DX: R51 Headache (principal); R42 Dizziness and giddiness; I11.9 Hypertensive heart disease without heart failure; J44.9 Chronic obstructive pulmonary disease, unspecified; Z88.6 Allergy status to analgesic agent; Z95.0 Presence of cardiac pacemaker; Z88.3 Allergy status to other anti-infective agents; Z88.0 Allergy status to penicillin; Z79.82 Long term (current) use of aspirin; Z90.49 Acquired absence of other specified parts of digestive tract; Z87.891 Personal history of nicotine dependence; Z90.710 Acquired absence of both cervix and uterus; Z96.651 Presence of right artificial knee joint
CPT/HCPCS: 36415; 70450; 71045; 80053; 80320; 83690; 83880; 84484; 85025; 85610; 93005; 96374; 96375; 99284; J2270; J2405; J8597; G0480

== ENCOUNTER 2019-07-18 23:35 | Emergency (ER) | payer MEDICARE ==
[~2019-07-18] VITALS: Ht 167.6 cm; Wt 131.0 kg
[2019-07-19] MEDS ORDERED: MORPHINE SULFATE 4 MG/ML CPJ (NOT FOR IM USE) IV STA (02:07)
[2019-07-19] MEDS ORDERED: ONDANSETRON HCL 4MG/2ML INJ IV STA (02:07)
[2019-07-19 03:47] LABS: CHLORIDE 112 mEq/L (98-107); PROTHROMBIN TIME 10.1 sec (9.6-11.0)
[2019-07-19 03:50] LABS: BASOPHILS % 0.2 % (0.0-2.0); EOSINOPHILS % 5.4 % (0.0-5.0); HEMATOCRIT. 36.1 % (36.0-48.0); HEMOGLOBIN. 11.7 g/dL (12.0-16.0); LYMPHOCYTES % 36.9 % (20.0-50.0); MEAN CORPUSCULAR HEMOGLOBIN 28.1 pg (28.0-32.0); MEAN CORPUSCULAR VOLUME 86.4 fL (81.0-99.0); MEAN PLATELET VOLUME 8.7 fl (7.4-10.4); MONOCYTES % 9.3 % (2.0-8.0); NEUTROPHILS % 48.2 % (40.0-76.0); PLATELET 189 x1000/uL (130-400); RED BLOOD CELL COUNT 4.18 mill/uL (4.2-5.4); RED CELL DISTRIBUTION WIDTH 15.9 % (11.6-14.6)
[2019-07-19 03:51] LABS: ETHANOL BLOOD < 10 mg/dL
[2019-07-19 05:02] LABS: CLARITY URINE CLEAR (CLEAR); COLOR URINE YELLOW (YELLOW); KETONES URINE TRACE (NEGATIVE); LEUKOCYTE ESTERASE URINE NEGATIVE (NEGATIVE); NITRITE URINE NEGATIVE (NEGATIVE); OCCULT BLOOD URINE NEGATIVE (NEGATIVE); PROTEIN URINE NEGATIVE (NEGATIVE); SPECIFIC GRAVITY URINE 1.032 (1.005-1.030); UROBILINOGEN URINE 0.2 E.U./dL (0.2-1.0)
[2019-07-19] MEDS ORDERED: MORPHINE SULFATE 2 MG/ML CPJ (NOT FOR IM USE) IV SCH (05:45)
[2019-07-19 06:26] LABS: *AMPHETAMINES SCREEN URINE NEGATIVE (NEGATIVE); *BARBITURATES SCREEN URINE NEGATIVE (NEGATIVE)
[2019-07-19 06:27] LABS: *BENZODIAZEPINES SCREEN URINE NEGATIVE (NEGATIVE); *COCAINE SCREEN URINE NEGATIVE (NEGATIVE); METHADONE URINE SCREEN NEGATIVE (NEGATIVE); OPIATES URINE SCREEN PRESUMTIVE POSITIVE (NEGATIVE); PHENCYCLIDINE URINE SCREEN NEGATIVE (NEGATIVE)
[2019-07-19 06:28] LABS: CANNABINOID URINE SCREEN NEGATIVE (NEGATIVE)
[2019-07-19 08:23] VITALS: BP 105/70
== END 2019-07-19 08:24 | disposition home or self-care (01) ==
LOC: ER 23:35
DX: R51 Headache (principal); I11.0 Hypertensive heart disease with heart failure; I50.9 Heart failure, unspecified; Z95.0 Presence of cardiac pacemaker
CPT/HCPCS: 36415; 80053; 80305; 80320; 81003; 85025; 85610; 96374; 96375; 96376; 99283; J2270; J2405; G0480

== ENCOUNTER 2019-07-23 10:27 | Emergency (ER) | payer MEDICARE ==
[~2019-07-23] VITALS: Ht 167.6 cm; Wt 133.7 kg
[2019-07-23 11:25] LABS: CHLORIDE 112 mEq/L (98-107)
[2019-07-23 11:30] LABS: HEMATOCRIT. 38.6 % (36.0-48.0); HEMOGLOBIN. 12.7 g/dL (12.0-16.0); MEAN CORPUSCULAR HEMOGLOBIN 28.2 pg (28.0-32.0); MEAN CORPUSCULAR VOLUME 85.8 fL (81.0-99.0); MEAN PLATELET VOLUME 8.8 fl (7.4-10.4); PLATELET 208 x1000/uL (130-400); RED BLOOD CELL COUNT 4.49 mill/uL (4.2-5.4)
[2019-07-23 11:31] LABS: ETHANOL BLOOD < 10 mg/dL
[2019-07-23 11:34] LABS: LDL CHOLESTEROL 138 mg/dL (5-100)
[2019-07-23] MEDS ORDERED: PROCHLORPERAZINE 10MG/2ML VIAL IV PRN (11:45)
[2019-07-23 11:57] LABS: PLATELET ESTIMATE NORMAL
[2019-07-23] MEDS ORDERED: IOHEXOL-350 100 ML BOTTLE ONE (13:08)
[2019-07-23] MEDS ORDERED: ACETAMINOPHEN 650MG/20.3ML UDC PO SCH (14:15)
[2019-07-23] MEDS ORDERED: ASPIRIN 81MG TABLET PO SCH (14:15)
[2019-07-23] MEDS ORDERED: ACETAMINOPHEN 325MG TABLET PO PRN (14:15)
[2019-07-23 15:07] LABS: INR 0.9; PROTHROMBIN TIME 9.7 sec (9.6-11.0)
[2019-07-23] MEDS ORDERED: MORPHINE SULFATE 4 MG/ML CPJ (NOT FOR IM USE) IV ONE (16:15)
[2019-07-23] MEDS ORDERED: HYDROCODONE/ACETAMINOPHEN 5/325MG TABLET PO ONE (16:15)
[2019-07-23 20:12] VITALS: BP 111/69
== END 2019-07-23 18:04 | disposition short-term general hospital (02) ==
LOC: ER 10:40 → EDBEDREQSVC 12:05 → EDBEDREQ 12:05 → CANBEDREQ 13:54 → ER 18:04
DX: H53.8 Other visual disturbances (principal); I11.0 Hypertensive heart disease with heart failure; I50.9 Heart failure, unspecified; Z90.49 Acquired absence of other specified parts of digestive tract; Z90.710 Acquired absence of both cervix and uterus; Z95.0 Presence of cardiac pacemaker; Z96.659 Presence of unspecified artificial knee joint; Z79.899 Other long term (current) drug therapy; Z88.0 Allergy status to penicillin; Z88.5 Allergy status to narcotic agent; Z88.1 Allergy status to other antibiotic agents; Z88.6 Allergy status to analgesic agent
CPT/HCPCS: 36415; 70450; 70496; 70498; 71045; 80053; 80320; 82465; 82962; 83721; 84484; 85025; 85610; 93005; 96374; 96375; 99285; J2270; Q9967; Z7610; G0480

== ENCOUNTER 2019-08-14 17:28 | Inpatient (IN) | payer MEDICARE ==
[~2019-08-14] VITALS: Ht 167.6 cm; Wt 131.1 kg
[~2019-08-14 17:28] MED LIST changes: -MORP30TA54 PO; +OMEP40CA12 MT; -P20 PO
[2019-08-15] MEDS ORDERED: ALBUTEROL (0.083%) 2.5MG/3ML NEB HHN STA (03:45)
[2019-08-15] MEDS ORDERED: IPRATROPIUM BROMIDE (0.02%) 0.5MG/2.5ML NEB HHN STA (03:45)
[2019-08-15] MEDS ORDERED: METHYLPREDNISOLONE SOD SUCC 125 MG/2 ML VIAL IV STA (03:45)
[2019-08-15] MEDS ORDERED: MORPHINE SULFATE 2 MG/ML CPJ (NOT FOR IM USE) IV ONE ×2 (04:15→10:30)
[2019-08-15] MEDS ORDERED: ONDANSETRON HCL 4MG/2ML INJ IV ONE ×2 (04:15→10:30)
[2019-08-15 05:05] LABS: BASOPHILS % 1.4 % (0.0-2.0); EOSINOPHILS % 3.6 % (0.0-5.0); HEMATOCRIT. 39.8 % (36.0-48.0); HEMOGLOBIN. 12.6 g/dL (12.0-16.0); LYMPHOCYTES % 37.8 % (20.0-50.0); MEAN CORPUSCULAR HEMOGLOBIN 27.4 pg (28.0-32.0); MEAN CORPUSCULAR VOLUME 86.8 fL (81.0-99.0); MEAN PLATELET VOLUME 8.9 fl (7.4-10.4); MONOCYTES % 7.3 % (2.0-8.0); NEUTROPHILS % 49.9 % (40.0-76.0); PLATELET 183 x1000/uL (130-400); RED BLOOD CELL COUNT 4.59 mill/uL (4.2-5.4); RED CELL DISTRIBUTION WIDTH 15.9 % (11.6-14.6)
[2019-08-15 05:20] LABS: CHLORIDE 114 mEq/L (98-107)
[2019-08-15] MEDS: MORPHINE SULFATE 2 MG/ML CPJ (NOT FOR IM USE) IV PRN ×2 (17:23→22:39)
[2019-08-15 21:30] VITALS: BP 131/84
[2019-08-15 21:35] VITALS: BP 131/84
[2019-08-15] MEDS ORDERED: IPRATROPIUM/ALBUTEROL 0.5-3(2.5)MG/3ML NEB HHN PRN (23:30)
[2019-08-16 00:05] VITALS: BP 124/72
[2019-08-16] MEDS: MORPHINE SULFATE 2 MG/ML CPJ (NOT FOR IM USE) IV PRN ×4 (02:32→14:40)
[2019-08-16 04:00] VITALS: BP 134/71
[2019-08-16] MEDS ORDERED: OMEPRAZOLE 20MG CAPSULE EXTENDED RELEASE PO SCH (07:40)
[2019-08-16 08:00] VITALS: BP 104/67
[2019-08-16] MEDS ORDERED: FOLIC ACID 1MG TABLET PO SCH (09:00)
[2019-08-16] MEDS ORDERED: ASPIRIN 81MG EC TABLET PO SCH (09:00)
[2019-08-16] MEDS ORDERED: MULTIVITAMINS,THER W-MINERALS TABLET PO SCH (09:00)
[2019-08-16] MEDS ORDERED: POTASSIUM CHLORIDE 20MEQ TABLET SR PO SCH (09:00)
[2019-08-16] MEDS ORDERED: LORATADINE 10MG TABLET PO SCH (09:00)
[2019-08-16 12:00] VITALS: BP 104/67
[2019-08-16] MEDS ORDERED: IPRATROPIUM/ALBUTEROL 0.5-3(2.5)MG/3ML NEB HHN NR (12:30)
[2019-08-16] MEDS ORDERED: METHYLPREDNISOLONE SOD SUCC 40 MG/ML VIAL IV NR (12:30)
[2019-08-16] MEDS ORDERED: BUDESONIDE 0.5MG/2ML NEB HHN NR (12:30)
[2019-08-16 15:56] LABS: HEMOGLOBIN 12.4 g/dL (12.0-16.0); MEAN CORPUSCULAR HEMOGLOBIN 27.5 pg (28.0-32.0); MEAN CORPUSCULAR VOLUME 86.9 fL (81.0-99.0); PLATELET 177 x1000/uL (130-400); RED BLOOD CELL COUNT 4.49 mill/uL (4.2-5.4); RED CELL DISTRIBUTION WIDTH 16.2 % (11.6-14.6)
[2019-08-16 16:00] VITALS: BP 104/67
[2019-08-16 16:14] LABS: CHLORIDE 111 mEq/L (98-107)
[2019-08-16] MEDS ORDERED: ALBU90AE INH (16:25)
[2019-08-16] MEDS ORDERED: TRAM50TA94 MT (16:25)
[2019-08-16] MEDS ORDERED: P20 PO (16:25)
[2019-08-16] MEDS ORDERED: FLUT1AER INH (16:25)
[2019-08-16] MEDS ORDERED: LEVO500T2 MT (16:25)
[2019-08-16] MEDS ORDERED: FURO-151 MT (16:30)
[2019-08-16] MEDS: FUROSEMIDE 40MG/4ML VIAL IVP NR ×2 (16:32→16:59)
[2019-08-16 16:46] VITALS: BP 120/77
[2019-08-16] MEDS ORDERED: METHYLPREDNISOLONE SOD SUCC 40 MG/ML VIAL IV SCH (18:00)
[2019-08-16] MEDS ORDERED: IPRATROPIUM/ALBUTEROL 0.5-3(2.5)MG/3ML NEB HHN SCH (18:00)
== END 2019-08-16 20:06 | disposition home or self-care (01) | DRG 194 ==
LOC: ER 17:28 → EDBEDREQ 08-15 10:27 → CANRESERV 08-15 12:33 → ENRESERV 08-15 12:33 → EDBEDREQSVC 08-15 12:42 → SUPCPDRO 08-15 14:50 → 7WST 08-15 17:40 → ENRESERV 08-15 19:06
PROVIDERS: ADMIT Internal Medicine; ATTEND Internal Medicine
DX: I11.0 Hypertensive heart disease with heart failure (principal); F11.20 Opioid dependence, uncomplicated; J44.1 Chronic obstructive pulmonary disease with (acute) exacerbation; I50.23 Acute on chronic systolic (congestive) heart failure; E66.9 Obesity, unspecified; E78.00 Pure hypercholesterolemia, unspecified; E78.5 Hyperlipidemia, unspecified; I25.2 Old myocardial infarction; Z90.710 Acquired absence of both cervix and uterus; Z79.899 Other long term (current) drug therapy; Z88.0 Allergy status to penicillin; Z88.5 Allergy status to narcotic agent; Z88.1 Allergy status to other antibiotic agents; Z88.8 Allergy status to other drugs, medicaments and biological substances; Z91.018 Allergy to other foods; Z91.048 Other nonmedicinal substance allergy status
CPT/HCPCS: 36415; 71045; 80048; 80053; 83880; 84484; 85025; 85027; 87804; 93005; 94640; 94644; 99285; J1940; J2270; J2405; J2920; J2930; J7626

== ENCOUNTER 2019-08-27 15:18 | Emergency (ER) | payer MEDICARE ==
[~2019-08-27] VITALS: Ht 167.6 cm; Wt 131.0 kg
[~2019-08-27 15:18] MED LIST changes: +ALBU90AE INH; +FLUT1AER INH; +FURO-151 MT; +LEVO500T2 MT; +P20 PO; +TRAM50TA94 MT
[2019-08-27 18:32] LABS: BASOPHILS % 1.5 % (0.0-2.0); EOSINOPHILS % 4.2 % (0.0-5.0); HEMATOCRIT. 37.9 % (36.0-48.0); HEMOGLOBIN. 12.1 g/dL (12.0-16.0); LYMPHOCYTES % 33.7 % (20.0-50.0); MEAN CORPUSCULAR HEMOGLOBIN 27.3 pg (28.0-32.0); MEAN CORPUSCULAR VOLUME 85.6 fL (81.0-99.0); MEAN PLATELET VOLUME 9.1 fl (7.4-10.4); MONOCYTES % 10.2 % (2.0-8.0); NEUTROPHILS % 50.4 % (40.0-76.0); PLATELET 221 x1000/uL (130-400); RED BLOOD CELL COUNT 4.42 mill/uL (4.2-5.4); RED CELL DISTRIBUTION WIDTH 16.2 % (11.6-14.6)
[2019-08-27 18:35] LABS: CHLORIDE 113 mEq/L (98-107)
[2019-08-27] MEDS ORDERED: HYDROCODONE/ACETAMINOPHEN 5/325MG TABLET PO ONE (21:00)
[2019-08-27 21:19] VITALS: BP 128/75
== END 2019-08-27 21:19 | disposition home or self-care (01) ==
LOC: ER 15:18
DX: R51 Headache (principal); R53.1 Weakness; I10 Essential (primary) hypertension; E78.00 Pure hypercholesterolemia, unspecified; Z88.6 Allergy status to analgesic agent; Z88.0 Allergy status to penicillin; Z88.5 Allergy status to narcotic agent; Z88.1 Allergy status to other antibiotic agents; Z91.018 Allergy to other foods; Z79.899 Other long term (current) drug therapy; Z90.710 Acquired absence of both cervix and uterus; Z90.49 Acquired absence of other specified parts of digestive tract
CPT/HCPCS: 36415; 80053; 85025; 93005; 99285

== ENCOUNTER 2019-09-22 08:07 | Emergency (ER) | payer MEDICARE ==
[~2019-09-22] VITALS: Ht 165.1 cm; Wt 131.0 kg
[2019-09-22] MEDS ORDERED: IPRATROPIUM BROMIDE (0.02%) 0.5MG/2.5ML NEB HHN STA (08:43)
[2019-09-22] MEDS ORDERED: METHYLPREDNISOLONE SOD SUCC 125 MG/2 ML VIAL IV STA (08:43)
[2019-09-22] MEDS ORDERED: TRAMADOL 50MG TABLET PO ONE (08:45)
[2019-09-22] MEDS ORDERED: ALBUTEROL (0.083%) 2.5MG/3ML NEB HHN SCH (09:00)
[2019-09-22 09:41] LABS: BASOPHILS % 0.9 % (0.0-2.0); HEMATOCRIT. 37.8 % (36.0-48.0); HEMOGLOBIN. 12.3 g/dL (12.0-16.0); LYMPHOCYTES % 31.9 % (20.0-50.0); MEAN CORPUSCULAR HEMOGLOBIN 27.5 pg (28.0-32.0); MEAN CORPUSCULAR VOLUME 84.8 fL (81.0-99.0); MEAN PLATELET VOLUME 9.3 fl (7.4-10.4); MONOCYTES % 7.9 % (2.0-8.0); NEUTROPHILS % 54.3 % (40.0-76.0); PLATELET 219 x1000/uL (130-400); RED BLOOD CELL COUNT 4.46 mill/uL (4.2-5.4); RED CELL DISTRIBUTION WIDTH 16.3 % (11.6-14.6)
[2019-09-22 09:49] LABS: CHLORIDE 112 mEq/L (98-107); PROTHROMBIN TIME 10.4 sec (9.6-11.0)
[2019-09-22] MEDS ORDERED: HYDROCODONE/ACETAMINOPHEN 5/325MG TABLET PO ONE (13:45)
[2019-09-22 15:19] VITALS: BP 128/79
== END 2019-09-22 15:29 | disposition short-term general hospital (02) ==
LOC: ER 08:23
DX: R07.89 Other chest pain (principal); J44.1 Chronic obstructive pulmonary disease with (acute) exacerbation; I25.10 Atherosclerotic heart disease of native coronary artery without angina pectoris; E78.00 Pure hypercholesterolemia, unspecified; I10 Essential (primary) hypertension; Z90.49 Acquired absence of other specified parts of digestive tract; Z90.710 Acquired absence of both cervix and uterus; Z95.0 Presence of cardiac pacemaker; Z79.899 Other long term (current) drug therapy; Z88.0 Allergy status to penicillin
CPT/HCPCS: 36415; 71045; 80053; 83880; 84484; 85025; 85610; 93005; 94640; 96374; 99291; J2930; Z7610

== ENCOUNTER 2022-02-11 20:37 | Inpatient (IN) | payer MEDICAID ==
[~2022-02-11] VITALS: Ht 167.6 cm; Wt 89.5 kg
[~2022-02-11 20:37] MED LIST changes: -ALBU90AE INH; -ASPI-1158 PO; +ASPI-1406 PO; -CLOP75TA4 MT; -COR12 MT; +COR3 PO; -LEVO500T2 MT; +LIDO700A30 TOP; -OMEP20CA4 PO; -OMEP40CA12 MT; +OMEP40CA20 MT; -P20 PO; +POTA-194 PO; -POTA20TA12 PO; -TRAM50TA94 MT
[2022-02-11 22:25] LABS: CHLORIDE 112 mEq/L (98-107)
[2022-02-11 22:28] LABS: EOSINOPHILS % 2.8 % (0.0-5.0); HEMATOCRIT. 36.2 % (36.0-48.0); HEMOGLOBIN. 11.8 g/dL (12.0-16.0); LYMPHOCYTES % 32.2 % (20.0-50.0); MEAN CORPUSCULAR HEMOGLOBIN 28.3 pg (28.0-32.0); MEAN CORPUSCULAR VOLUME 87.2 fL (81.0-99.0); MEAN PLATELET VOLUME 9.8 fl (7.4-10.4); MONOCYTES % 9.3 % (2.0-8.0); NEUTROPHILS % 54.7 % (40.0-76.0); PLATELET 213 x1000/uL (130-400); RED BLOOD CELL COUNT 4.15 mill/uL (4.2-5.4); RED CELL DISTRIBUTION WIDTH 16.3 % (11.6-14.6)
[2022-02-11] MEDS ORDERED: MORPHINE SULFATE 4 MG/ML CPJ (NOT FOR IM USE) IV ONE (22:30)
[2022-02-12] MEDS ORDERED: KETOROLAC 15MG/ML VIAL IV NR (01:00)
[2022-02-12 05:05] VITALS: BP 135/88
[2022-02-12] MEDS ORDERED: COR12 MT (06:16)
[2022-02-12] MEDS ORDERED: DOCU250C14 MT (06:16)
[2022-02-12 08:00] VITALS: BP 132/76
[2022-02-12] MEDS ORDERED: IPRATROPIUM/ALBUTEROL 0.5-3(2.5)MG/3ML NEB HHN PRN (09:45)
[2022-02-12] MEDS ORDERED: CLONIDINE 0.1MG TABLET PO PRN (09:45)
[2022-02-12] MEDS ORDERED: DIPHENHYDRAMINE 50MG/ML VIAL IV PRN (09:45)
[2022-02-12] MEDS ORDERED: ONDANSETRON HCL 4MG/2ML INJ IV PRN (09:45)
[2022-02-12] MEDS: MORPHINE SULFATE 2 MG/ML CPJ (NOT FOR IM USE) IV PRN ×4 (09:53→22:26)
[2022-02-12] MEDS ORDERED: NALOXONE HCL 0.4MG/ML VIAL IV PRN (10:00)
[2022-02-12 12:00] VITALS: BP 113/66
[2022-02-12 16:00] VITALS: BP 127/68
[2022-02-12] MEDS: LEVETIRACETAM 500MG TABLET PO SCH (16:33)
[2022-02-12] MEDS: PHENYTOIN SODIUM EXTENDED 100MG CAPSULE PO SCH (16:33)
[2022-02-12] MEDS: DOCUSATE SODIUM 250MG CAPSULE PO SCH (16:34)
[2022-02-12] MEDS ORDERED: ATORVASTATIN CALCIUM 40MG TABLET PO SCH (21:00)
[2022-02-12] MEDS: CARVEDILOL 3.125 MG TABLET PO SCH (22:26)
[2022-02-13] VITALS: BP 120/70
[2022-02-13 04:00] VITALS: BP 115/75
[2022-02-13] MEDS: MORPHINE SULFATE 2 MG/ML CPJ (NOT FOR IM USE) IV PRN ×3 (05:34→14:14)
[2022-02-13 08:00] VITALS: BP 157/82
[2022-02-13 08:17] LABS: BASOPHILS % 0.7 % (0.0-2.0); HEMATOCRIT. 38.2 % (36.0-48.0); HEMOGLOBIN. 12.2 g/dL (12.0-16.0); MEAN CORPUSCULAR HEMOGLOBIN 27.7 pg (28.0-32.0); MEAN CORPUSCULAR VOLUME 86.7 fL (81.0-99.0); MEAN PLATELET VOLUME 9.7 fl (7.4-10.4); MONOCYTES % 8.4 % (2.0-8.0); NEUTROPHILS % 57.9 % (40.0-76.0); PLATELET 193 x1000/uL (130-400); RED BLOOD CELL COUNT 4.41 mill/uL (4.2-5.4); RED CELL DISTRIBUTION WIDTH 16.2 % (11.6-14.6)
[2022-02-13] MEDS: CARVEDILOL 3.125 MG TABLET PO SCH (08:17)
[2022-02-13] MEDS: PHENYTOIN SODIUM EXTENDED 100MG CAPSULE PO SCH (08:17)
[2022-02-13] MEDS: LEVETIRACETAM 500MG TABLET PO SCH (08:17)
[2022-02-13] MEDS: DOCUSATE SODIUM 250MG CAPSULE PO SCH (08:18)
[2022-02-13 08:37] LABS: CHLORIDE 107 mEq/L (98-107)
[2022-02-13] MEDS ORDERED: FOLIC ACID 1MG TABLET PO SCH (09:00)
[2022-02-13] MEDS ORDERED: SERTRALINE HCL 50MG TABLET PO SCH (09:00)
[2022-02-13] MEDS ORDERED: FUROSEMIDE 40MG TABLET PO SCH (09:00)
[2022-02-13] MEDS ORDERED: AMLODIPINE 2.5MG TABLET PO SCH (09:00)
[2022-02-13] MEDS ORDERED: ASPIRIN 81MG EC TABLET PO SCH (09:00)
[2022-02-13] MEDS ORDERED: LORATADINE 10MG TABLET PO SCH (09:00)
[2022-02-13 12:00] VITALS: BP 121/76
[2022-02-13 15:01] VITALS: BP 147/85
[2022-02-13 15:46] VITALS: BP 147/85
== END 2022-02-13 16:09 | disposition home or self-care (01) | DRG 203 ==
LOC: ER 20:37 → MICUSO 02-12 01:13 → 8WST 02-12 05:21
PROVIDERS: ADMIT Internal Medicine; ATTEND Internal Medicine
DX: M94.0 Chondrocostal junction syndrome [Tietze] (principal); I42.0 Dilated cardiomyopathy; I50.22 Chronic systolic (congestive) heart failure; I11.0 Hypertensive heart disease with heart failure; I25.10 Atherosclerotic heart disease of native coronary artery without angina pectoris; K21.9 Gastro-esophageal reflux disease without esophagitis; E78.00 Pure hypercholesterolemia, unspecified; E66.01 Morbid (severe) obesity due to excess calories; E78.5 Hyperlipidemia, unspecified; J44.9 Chronic obstructive pulmonary disease, unspecified; G40.909 Epilepsy, unspecified, not intractable, without status epilepticus; Z68.31 Body mass index [BMI] 31.0-31.9, adult; Z88.0 Allergy status to penicillin; Z88.6 Allergy status to analgesic agent; Z88.1 Allergy status to other antibiotic agents; Z91.018 Allergy to other foods; Z95.810 Presence of automatic (implantable) cardiac defibrillator; I25.2 Old myocardial infarction; R77.8 Other specified abnormalities of plasma proteins; F32.A Depression, unspecified; M54.30 Sciatica, unspecified side; Z86.69 Personal history of other diseases of the nervous system and sense organs
CPT/HCPCS: 36415; 71045; 80053; 83880; 84484; 85025; 93005; 93970; 99285; J1885; J2270

== ENCOUNTER 2022-02-25 06:46 | Inpatient (IN) | payer MEDICAID ==
[~2022-02-25] VITALS: Ht 172.7 cm
[~2022-02-25 06:46] MED LIST changes: -DOCU-138 PO; +DOCU250C14 MT
[2022-02-25] MEDS ORDERED: LEVETIRACETAM 1000MG PREMIX 100 ML IV ONE (07:00)
[2022-02-25 09:23] LABS: CHLORIDE 109 mEq/L (98-107)
[2022-02-25] MEDS ORDERED: LEVETIRACETAM 1000MG PREMIX 100 ML IV NR (09:30)
[2022-02-25 09:33] LABS: ETHANOL BLOOD < 10 mg/dL
[2022-02-25 09:55] LABS: CLARITY URINE CLOUDY (CLEAR); COLOR URINE YELLOW (YELLOW); KETONES URINE NEGATIVE (NEGATIVE); LEUKOCYTE ESTERASE URINE NEGATIVE (NEGATIVE); NITRITE URINE POSITIVE (NEGATIVE); OCCULT BLOOD URINE NEGATIVE (NEGATIVE); PROTEIN URINE NEGATIVE (NEGATIVE); SPECIFIC GRAVITY URINE 1.016 (1.005-1.030); UROBILINOGEN URINE 0.2 E.U./dL (0.2-1.0)
[2022-02-25] MEDS ORDERED: IBUPROFEN 400MG TABLET PO ONE (10:00)
[2022-02-25 10:23] LABS: *AMPHETAMINES SCREEN URINE NEGATIVE (NEGATIVE); *BARBITURATES SCREEN URINE NEGATIVE (NEGATIVE); *BENZODIAZEPINES SCREEN URINE PRESUMTIVE POSITIVE (NEGATIVE); *COCAINE SCREEN URINE NEGATIVE (NEGATIVE); CANNABINOID URINE SCREEN NEGATIVE (NEGATIVE); METHADONE URINE SCREEN NEGATIVE (NEGATIVE); OPIATES URINE SCREEN PRESUMTIVE POSITIVE (NEGATIVE); PHENCYCLIDINE URINE SCREEN NEGATIVE (NEGATIVE)
[2022-02-25 12:01] LABS: BASOPHILS % 0.5 % (0.0-2.0); EOSINOPHILS % 0.9 % (0.0-5.0); HEMATOCRIT. 40.9 % (36.0-48.0); HEMOGLOBIN. 13.3 g/dL (12.0-16.0); LYMPHOCYTES % 23.9 % (20.0-50.0); MEAN CORPUSCULAR VOLUME 86.5 fL (81.0-99.0); MEAN PLATELET VOLUME 9.1 fl (7.4-10.4); MONOCYTES % 9.3 % (2.0-8.0); NEUTROPHILS % 65.4 % (40.0-76.0); PLATELET 200 x1000/uL (130-400); RED BLOOD CELL COUNT 4.73 mill/uL (4.2-5.4); RED CELL DISTRIBUTION WIDTH 16.1 % (11.6-14.6)
[2022-02-25] MEDS ORDERED: ACETAMINOPHEN 325MG TABLET ONE (14:28)
[2022-02-25] MEDS ORDERED: CLONIDINE 0.1MG TABLET PO PRN (15:15)
[2022-02-25] MEDS ORDERED: IPRATROPIUM/ALBUTEROL 0.5-3(2.5)MG/3ML NEB HHN PRN (15:15)
[2022-02-25] MEDS ORDERED: DOCUSATE SODIUM 100MG CAPSULE PO PRN (15:15)
[2022-02-25] MEDS ORDERED: ACETAMINOPHEN 325MG TABLET PO PRN (15:15)
[2022-02-25] MEDS ORDERED: PHENYTOIN SODIUM 1000MG in SODIUM CHLORIDE 0.9% 100ML IV NR (15:30)
[2022-02-25] MEDS: SERTRALINE HCL 50MG TABLET PO SCH (16:00)
[2022-02-25] MEDS: LEVETIRACETAM 500MG TABLET PO SCH (17:12)
[2022-02-25] MEDS: LORAZEPAM 0.5MG TABLET PO PRN (17:13)
[2022-02-25] MEDS ORDERED: MIDAZOLAM HCL 2 MG/2 ML VIAL IV ONE (17:45)
[2022-02-25] MEDS: ATORVASTATIN CALCIUM 40MG TABLET PO SCH (21:00)
[2022-02-25] MEDS: CARVEDILOL 3.125 MG TABLET PO SCH (21:00)
[2022-02-25] MEDS: ONDANSETRON HCL 4MG/2ML INJ IV PRN (22:21)
[2022-02-26 01:14] VITALS: BP 155/84
[2022-02-26] MEDS: LORAZEPAM 0.5MG TABLET PO PRN ×3 (02:25→17:29)
[2022-02-26] MEDS: ACETAMINOPHEN 325MG TABLET PO PRN ×3 (02:26→17:29)
[2022-02-26] MEDS: ONDANSETRON HCL 4MG/2ML INJ IV PRN ×3 (02:26→17:28)
[2022-02-26] MEDS: OMEPRAZOLE 20MG CAPSULE EXTENDED RELEASE PO SCH (06:56)
[2022-02-26 08:00] VITALS: BP 151/85
[2022-02-26] MEDS: CARVEDILOL 3.125 MG TABLET PO SCH ×2 (08:50→21:00)
[2022-02-26] MEDS: DOCUSATE SODIUM 250MG CAPSULE PO SCH (08:51)
[2022-02-26] MEDS: LEVETIRACETAM 500MG TABLET PO SCH ×2 (08:52→17:29)
[2022-02-26] MEDS: ASPIRIN 81MG EC TABLET PO SCH (08:52)
[2022-02-26] MEDS: FOLIC ACID 1MG TABLET PO SCH (08:53)
[2022-02-26] MEDS: AMLODIPINE 2.5MG TABLET PO SCH (08:54)
[2022-02-26] MEDS: SERTRALINE HCL 50MG TABLET PO SCH (08:56)
[2022-02-26] MEDS: FUROSEMIDE 40MG TABLET PO SCH (08:59)
[2022-02-26] MEDS: PHENYTOIN SODIUM EXTENDED 100MG CAPSULE PO SCH ×2 (11:11→17:53)
[2022-02-26 12:00] VITALS: BP 126/64
[2022-02-26 16:00] VITALS: BP 153/61
[2022-02-26 20:00] VITALS: BP 133/58
[2022-02-26] MEDS: ATORVASTATIN CALCIUM 40MG TABLET PO SCH (21:00)
[2022-02-27] VITALS: BP 131/72
[2022-02-27 04:00] VITALS: BP 135/81
[2022-02-27] MEDS: ONDANSETRON HCL 4MG/2ML INJ IV PRN ×3 (04:22→21:19)
[2022-02-27] MEDS: LORAZEPAM 0.5MG TABLET PO PRN (06:46)
[2022-02-27] MEDS: ACETAMINOPHEN 325MG TABLET PO PRN (06:46)
[2022-02-27] MEDS: METOCLOPRAMIDE HCL 10MG/2ML VIAL IV PRN ×2 (06:48→14:35)
[2022-02-27] MEDS: OMEPRAZOLE 20MG CAPSULE EXTENDED RELEASE PO SCH (06:48)
[2022-02-27 07:25] LABS: BASOPHILS % 0.4 % (0.0-2.0); EOSINOPHILS % 0.2 % (0.0-5.0); HEMATOCRIT. 43.8 % (36.0-48.0); HEMOGLOBIN. 14.6 g/dL (12.0-16.0); LYMPHOCYTES % 13.8 % (20.0-50.0); MEAN CORPUSCULAR HEMOGLOBIN 28.8 pg (28.0-32.0); MEAN CORPUSCULAR VOLUME 86.3 fL (81.0-99.0); MEAN PLATELET VOLUME 9.3 fl (7.4-10.4); MONOCYTES % 10.4 % (2.0-8.0); NEUTROPHILS % 75.2 % (40.0-76.0); PLATELET 201 x1000/uL (130-400); RED BLOOD CELL COUNT 5.07 mill/uL (4.2-5.4); RED CELL DISTRIBUTION WIDTH 15.9 % (11.6-14.6)
[2022-02-27 07:46] LABS: CHLORIDE 101 mEq/L (98-107)
[2022-02-27 08:00] VITALS: BP 161/75
[2022-02-27] MEDS: FOLIC ACID 1MG TABLET PO SCH (09:18)
[2022-02-27] MEDS: SERTRALINE HCL 50MG TABLET PO SCH (09:19)
[2022-02-27] MEDS: LEVETIRACETAM 500MG TABLET PO SCH ×2 (09:19→21:00)
[2022-02-27] MEDS: AMLODIPINE 2.5MG TABLET PO SCH (09:19)
[2022-02-27] MEDS: FUROSEMIDE 40MG TABLET PO SCH (09:19)
[2022-02-27] MEDS: CARVEDILOL 3.125 MG TABLET PO SCH ×2 (09:19→21:00)
[2022-02-27] MEDS: ASPIRIN 81MG EC TABLET PO SCH (09:20)
[2022-02-27] MEDS: DOCUSATE SODIUM 250MG CAPSULE PO SCH (09:20)
[2022-02-27] MEDS ORDERED: POTASSIUM CHLORIDE 20MEQ TABLET SR PO NR (11:00)
[2022-02-27 11:01] LABS: AMYLASE 60 IU/L (25-115)
[2022-02-27 12:00] VITALS: BP 133/60
[2022-02-27] MEDS: PHENYTOIN SODIUM EXTENDED 100MG CAPSULE PO SCH ×2 (12:11→19:30)
[2022-02-27 16:00] VITALS: BP 149/74
[2022-02-27] MEDS: ATORVASTATIN CALCIUM 40MG TABLET PO SCH (21:00)
[2022-02-28] MEDS: METOCLOPRAMIDE HCL 10MG/2ML VIAL IV PRN ×3 (01:37→17:35)
[2022-02-28] MEDS: LORAZEPAM 0.5MG TABLET PO PRN ×3 (01:44→20:46)
[2022-02-28] MEDS: ACETAMINOPHEN 325MG TABLET PO PRN ×3 (01:44→20:32)
[2022-02-28 04:00] VITALS: BP 127/67
[2022-02-28] MEDS: ONDANSETRON HCL 4MG/2ML INJ IV PRN ×3 (05:36→20:32)
[2022-02-28 06:51] LABS: BASOPHILS % 0.3 % (0.0-2.0); EOSINOPHILS % 0.3 % (0.0-5.0); HEMATOCRIT. 43.8 % (36.0-48.0); HEMOGLOBIN. 14.2 g/dL (12.0-16.0); MEAN CORPUSCULAR HEMOGLOBIN 28.1 pg (28.0-32.0); MEAN CORPUSCULAR VOLUME 86.9 fL (81.0-99.0); MEAN PLATELET VOLUME 9.4 fl (7.4-10.4); MONOCYTES % 10.8 % (2.0-8.0); NEUTROPHILS % 69.6 % (40.0-76.0); PLATELET 206 x1000/uL (130-400); RED BLOOD CELL COUNT 5.04 mill/uL (4.2-5.4); RED CELL DISTRIBUTION WIDTH 15.9 % (11.6-14.6)
[2022-02-28] MEDS: OMEPRAZOLE 20MG CAPSULE EXTENDED RELEASE PO SCH (07:03)
[2022-02-28 07:39] LABS: CHLORIDE 100 mEq/L (98-107)
[2022-02-28 08:00] VITALS: BP 131/60
[2022-02-28] MEDS: SERTRALINE HCL 50MG TABLET PO SCH (08:15)
[2022-02-28] MEDS: FUROSEMIDE 40MG TABLET PO SCH ×2 (08:15→08:31)
[2022-02-28] MEDS: LEVETIRACETAM 500MG TABLET PO SCH ×2 (08:16→20:39)
[2022-02-28] MEDS: CARVEDILOL 3.125 MG TABLET PO SCH ×2 (08:17→20:33)
[2022-02-28] MEDS: AMLODIPINE 2.5MG TABLET PO SCH (08:17)
[2022-02-28] MEDS: FOLIC ACID 1MG TABLET PO SCH (08:17)
[2022-02-28] MEDS: ASPIRIN 81MG EC TABLET PO SCH (08:17)
[2022-02-28] MEDS: DOCUSATE SODIUM 250MG CAPSULE PO SCH (08:30)
[2022-02-28] MEDS: PHENYTOIN SODIUM EXTENDED 100MG CAPSULE PO SCH ×2 (09:22→17:35)
[2022-02-28] MEDS ORDERED: LIDOCAINE HCL/PF 1% 10 MG/ML 5ML VIAL ONE (10:24)
[2022-02-28] MEDS ORDERED: MORPHINE SULFATE 2 MG/ML CPJ (NOT FOR IM USE) IV NR (11:30)
[2022-02-28 12:00] VITALS: BP 126/82
[2022-02-28] MEDS ORDERED: IOHEXOL-300 100 ML BOTTLE ONE (14:36)
[2022-02-28 16:00] VITALS: BP 133/69
[2022-02-28 20:00] VITALS: BP 114/63
[2022-02-28] MEDS: ATORVASTATIN CALCIUM 40MG TABLET PO SCH (20:33)
[2022-03-01] VITALS (7 sets, daily range): BP systolic 103–128; BP diastolic 64–76
[2022-03-01] MEDS: METOCLOPRAMIDE HCL 10MG/2ML VIAL IV PRN ×2 (03:34→13:47)
[2022-03-01] MEDS: ACETAMINOPHEN 325MG TABLET PO PRN (03:35)
[2022-03-01] MEDS: OMEPRAZOLE 20MG CAPSULE EXTENDED RELEASE PO SCH (06:37)
[2022-03-01 07:16] LABS: BASOPHILS % 0.6 % (0.0-2.0); EOSINOPHILS % 0.8 % (0.0-5.0); HEMATOCRIT. 41.2 % (36.0-48.0); HEMOGLOBIN. 13.5 g/dL (12.0-16.0); LYMPHOCYTES % 17.3 % (20.0-50.0); MEAN CORPUSCULAR HEMOGLOBIN 28.2 pg (28.0-32.0); MEAN CORPUSCULAR VOLUME 86.2 fL (81.0-99.0); MEAN PLATELET VOLUME 9.5 fl (7.4-10.4); MONOCYTES % 13.1 % (2.0-8.0); NEUTROPHILS % 68.2 % (40.0-76.0); PLATELET 198 x1000/uL (130-400); RED BLOOD CELL COUNT 4.78 mill/uL (4.2-5.4); RED CELL DISTRIBUTION WIDTH 15.9 % (11.6-14.6)
[2022-03-01 07:30] LABS: CHLORIDE 101 mEq/L (98-107)
[2022-03-01] MEDS ORDERED: HYDROCODONE/ACETAMINOPHEN 5/325MG TABLET PO PRN (08:30)
[2022-03-01] MEDS ORDERED: NALOXONE HCL 0.4MG/ML VIAL IV PRN (08:30)
[2022-03-01] MEDS: ONDANSETRON HCL 4MG/2ML INJ IV PRN (08:41)
[2022-03-01] MEDS: LEVETIRACETAM 500MG TABLET PO SCH (08:41)
[2022-03-01] MEDS: PHENYTOIN SODIUM EXTENDED 100MG CAPSULE PO SCH (08:42)
[2022-03-01] MEDS: SERTRALINE HCL 50MG TABLET PO SCH (08:42)
[2022-03-01] MEDS: FOLIC ACID 1MG TABLET PO SCH (08:42)
[2022-03-01] MEDS: ASPIRIN 81MG EC TABLET PO SCH (08:42)
[2022-03-01] MEDS: CARVEDILOL 3.125 MG TABLET PO SCH (08:43)
[2022-03-01] MEDS: AMLODIPINE 2.5MG TABLET PO SCH (08:43)
[2022-03-01] MEDS: HYDROCODONE/ACETAMINOPHEN 10/325MG TABLET PO PRN ×2 (08:43→15:13)
[2022-03-01] MEDS: FUROSEMIDE 40MG TABLET PO SCH (09:00)
[2022-03-01] MEDS ORDERED: POTASSIUM CHLORIDE 20MEQ TABLET SR PO SCH (09:00)
[2022-03-01] MEDS: DOCUSATE SODIUM 250MG CAPSULE PO SCH (09:00)
[2022-03-01] MEDS ORDERED: KEPP500 PO (10:14)
[2022-03-01] MEDS: MORPHINE SULFATE 2 MG/ML CPJ (NOT FOR IM USE) IV PRN ×2 (10:47→16:01)
[2022-03-02] MEDS ORDERED: FAMOTIDINE 20MG TABLET PO SCH (06:40)
== END 2022-03-01 17:20 | disposition home or self-care (01) | DRG 53 ==
LOC: ER 06:46 → EDBEDREQTM 09:40 → EDBEDREQ 09:40 → EDBEDREQTM 12:30 → EDBEDREQ 12:30 → ENRESERV 14:30 → CANRESERV 14:30 → ENRESERV 19:03 → 7EST 02-26 04:54
PROVIDERS: ADMIT Internal Medicine; ATTEND Internal Medicine
PROC: 02HV33Z Insertion of Infusion Device into Superior Vena Cava, Percutaneous Approach (ICD-10-PCS; principal; 2022-02-28)
PROC: B548ZZA Ultrasonography of Superior Vena Cava, Guidance (ICD-10-PCS; 2022-02-28)
DX: G40.909 Epilepsy, unspecified, not intractable, without status epilepticus (principal); I11.0 Hypertensive heart disease with heart failure; F33.1 Major depressive disorder, recurrent, moderate; I50.22 Chronic systolic (congestive) heart failure; E66.01 Morbid (severe) obesity due to excess calories; J44.9 Chronic obstructive pulmonary disease, unspecified; E78.00 Pure hypercholesterolemia, unspecified; F41.1 Generalized anxiety disorder; I25.10 Atherosclerotic heart disease of native coronary artery without angina pectoris; M54.10 Radiculopathy, site unspecified; R77.8 Other specified abnormalities of plasma proteins; G89.29 Other chronic pain; K21.9 Gastro-esophageal reflux disease without esophagitis; K42.9 Umbilical hernia without obstruction or gangrene; E87.6 Hypokalemia; Z20.822 Contact with and (suspected) exposure to COVID-19; I25.2 Old myocardial infarction; Z90.710 Acquired absence of both cervix and uterus; Z88.6 Allergy status to analgesic agent; Z88.1 Allergy status to other antibiotic agents; Z88.0 Allergy status to penicillin; Z68.1 Body mass index [BMI] 19.9 or less, adult; Z96.659 Presence of unspecified artificial knee joint; Z90.49 Acquired absence of other specified parts of digestive tract; Z95.810 Presence of automatic (implantable) cardiac defibrillator; Z87.891 Personal history of nicotine dependence; Z86.79 Personal history of other diseases of the circulatory system; Z86.73 Personal history of transient ischemic attack (TIA), and cerebral infarction without residual deficits
CPT/HCPCS: 36415; 36573; 71045; 74177; 80048; 80053; 80185; 80305; 80320; 81003; 82150; 82962; 83735; 84484; 85025; 87426; 93005; 93306; 99285; C1725; J1165; J1953; J2250; J2270; J2405; J2765; J3490; J7050; Q9967; G0480

== ENCOUNTER 2022-04-21 18:51 | Inpatient (IN) | payer MEDICAID ==
[~2022-04-21] VITALS: Ht 168.9 cm; Wt 136.1 kg
[2022-04-22] MEDS ORDERED: METHYLPREDNISOLONE SOD SUCC 40 MG/ML VIAL IV ONE
[2022-04-22] MEDS ORDERED: TRAMADOL 50MG TABLET PO ONE (00:15)
[2022-04-22] MEDS ORDERED: MORPHINE SULFATE 4 MG/ML CPJ (NOT FOR IM USE) IV STA ×2 (01:49→04:26)
[2022-04-22] MEDS ORDERED: ONDANSETRON HCL 4MG/2ML INJ IV STA ×2 (01:49→04:26)
[2022-04-22 01:55] LABS: BASOPHILS % 0.7 % (0.0-2.0); EOSINOPHILS % 3.2 % (0.0-5.0); HEMATOCRIT. 37.7 % (36.0-48.0); HEMOGLOBIN. 12.2 g/dL (12.0-16.0); LYMPHOCYTES % 29.5 % (20.0-50.0); MEAN CORPUSCULAR HEMOGLOBIN 28.5 pg (28.0-32.0); MEAN CORPUSCULAR VOLUME 88.2 fL (81.0-99.0); MONOCYTES % 10.5 % (2.0-8.0); NEUTROPHILS % 56.1 % (40.0-76.0); PLATELET 188 x1000/uL (130-400); RED BLOOD CELL COUNT 4.27 mill/uL (4.2-5.4); RED CELL DISTRIBUTION WIDTH 16.5 % (11.6-14.6)
[2022-04-22 02:00] LABS: CHLORIDE 108 mEq/L (98-107)
[2022-04-22] MEDS ORDERED: ALBUTEROL (0.083%) 2.5MG/3ML NEB HHN NR (02:00)
[2022-04-22] MEDS ORDERED: ASPIRIN 81MG TABLET PO ONE (02:30)
[2022-04-22] MEDS ORDERED: ENOXAPARIN 100MG/ML SYR SUBCUT ONE (02:45)
[2022-04-22] MEDS ORDERED: FUROSEMIDE 40MG/4ML VIAL IVP ONE (02:45)
[2022-04-22] MEDS ORDERED: ALBUTEROL (0.083%) 2.5MG/3ML NEB HHN ONE ×2 (04:30)
[2022-04-22 08:00] VITALS: BP 114/68
[2022-04-22 09:15] VITALS: BP 114/68
[2022-04-22] MEDS ORDERED: POTASSIUM CHLORIDE 20MEQ TABLET SR PO SCH ×2 (09:45→16:15)
[2022-04-22] MEDS ORDERED: FUROSEMIDE 40MG/4ML VIAL IVP NR (09:45)
[2022-04-22] MEDS ORDERED: ONDANSETRON HCL 4MG/2ML INJ IV PRN (09:45)
[2022-04-22 10:00] VITALS: BP 114/68
[2022-04-22 12:00] VITALS: BP 119/85
[2022-04-22] MEDS ORDERED: NALOXONE HCL 0.4MG/ML VIAL IV PRN (15:30)
[2022-04-22 16:00] VITALS: BP 115/69
[2022-04-22 20:00] VITALS: BP 112/63
[2022-04-22] MEDS ORDERED: ENAL5TAB21 PO (20:19)
[2022-04-22] MEDS ORDERED: DIPH25TA23 PO (20:19)
[2022-04-22] MEDS ORDERED: FURO80TA3 PO (20:19)
[2022-04-22] MEDS ORDERED: HYDR50SY PO (20:34)
[2022-04-22] MEDS ORDERED: MORP60TA6 PO (20:34)
[2022-04-22] MEDS ORDERED: HYDR-4009 PO (20:34)
[2022-04-22] MEDS: CARVEDILOL 3.125 MG TABLET PO SCH (21:57)
[2022-04-22] MEDS: HYDROCODONE/ACETAMINOPHEN 10/325MG TABLET PO PRN (21:58)
[2022-04-23] VITALS: BP 108/58
[2022-04-23 04:00] VITALS: BP 120/67
[2022-04-23] MEDS: HYDROCODONE/ACETAMINOPHEN 10/325MG TABLET PO PRN ×2 (04:13→09:04)
[2022-04-23 05:40] LABS: CHLORIDE 107 mEq/L (98-107)
[2022-04-23 06:22] LABS: BASOPHILS % 0.7 % (0.0-2.0); EOSINOPHILS % 2.7 % (0.0-5.0); HEMATOCRIT. 35.6 % (36.0-48.0); HEMOGLOBIN. 11.6 g/dL (12.0-16.0); LYMPHOCYTES % 36.4 % (20.0-50.0); MEAN CORPUSCULAR HEMOGLOBIN 28.5 pg (28.0-32.0); MEAN CORPUSCULAR VOLUME 87.2 fL (81.0-99.0); MEAN PLATELET VOLUME 9.3 fl (7.4-10.4); MONOCYTES % 9.2 % (2.0-8.0); PLATELET 187 x1000/uL (130-400); RED BLOOD CELL COUNT 4.09 mill/uL (4.2-5.4); RED CELL DISTRIBUTION WIDTH 16.4 % (11.6-14.6)
[2022-04-23 08:00] VITALS: BP 111/66
[2022-04-23] MEDS ORDERED: FUROSEMIDE 40MG/4ML VIAL IVP SCH (09:00)
[2022-04-23] MEDS ORDERED: ASPIRIN 81MG TABLET PO SCH (09:00)
[2022-04-23] MEDS ORDERED: AMLODIPINE 2.5MG TABLET PO SCH (09:00)
[2022-04-23] MEDS: CARVEDILOL 3.125 MG TABLET PO SCH (09:03)
[2022-04-23 11:22] VITALS: BP 101/65
[2022-04-23 12:00] VITALS: BP 101/65
== END 2022-04-23 16:35 | disposition home or self-care (01) | DRG 190 ==
LOC: ER 18:51 → 6WST 04-22 04:31
PROVIDERS: ADMIT Internal Medicine; ATTEND Internal Medicine
DX: I21.4 Non-ST elevation (NSTEMI) myocardial infarction (principal); I50.23 Acute on chronic systolic (congestive) heart failure; E44.1 Mild protein-calorie malnutrition; J44.9 Chronic obstructive pulmonary disease, unspecified; I11.0 Hypertensive heart disease with heart failure; I42.0 Dilated cardiomyopathy; G40.909 Epilepsy, unspecified, not intractable, without status epilepticus; E87.6 Hypokalemia; F32.A Depression, unspecified; E78.00 Pure hypercholesterolemia, unspecified; E66.9 Obesity, unspecified; G47.33 Obstructive sleep apnea (adult) (pediatric); M79.89 Other specified soft tissue disorders; I25.10 Atherosclerotic heart disease of native coronary artery without angina pectoris; Z88.0 Allergy status to penicillin; Z95.0 Presence of cardiac pacemaker; Z88.8 Allergy status to other drugs, medicaments and biological substances; Z79.899 Other long term (current) drug therapy; Z68.42 Body mass index [BMI] 45.0-49.9, adult; Z86.73 Personal history of transient ischemic attack (TIA), and cerebral infarction without residual deficits; Z87.891 Personal history of nicotine dependence; Z88.1 Allergy status to other antibiotic agents; Z90.710 Acquired absence of both cervix and uterus
CPT/HCPCS: 36415; 71045; 80048; 80053; 83880; 84484; 85025; 93005; 93970; 94640; 99285; J1650; J1940; J2270; J2405; J2920

== ENCOUNTER 2022-05-11 13:31 | Emergency (ER) | payer MEDICAID ==
[~2022-05-11] VITALS: Ht 167.6 cm; Wt 136.0 kg
[~2022-05-11 13:31] MED LIST changes: +DIPH25TA23 PO; +ENAL5TAB21 PO; +FURO80TA3 PO; +HYDR-4009 PO; +HYDR50SY PO; +MORP60TA6 PO
[2022-05-11 13:36] VITALS: BP 164/96
[2022-05-11] MEDS: LIDOCAINE HCL/EPINEPHRINE 1%-EPI 1:100,000 50 ML VIAL INFIL ONE (15:20)
[2022-05-11] MEDS ORDERED: DOCU-138 MT (15:39)
[2022-05-11] MEDS ORDERED: SENN-257 MT (15:39)
== END 2022-05-11 16:12 | disposition home or self-care (01) ==
LOC: ER 13:31
DX: K64.4 Residual hemorrhoidal skin tags (principal); I25.10 Atherosclerotic heart disease of native coronary artery without angina pectoris; I11.0 Hypertensive heart disease with heart failure; I50.9 Heart failure, unspecified; E78.00 Pure hypercholesterolemia, unspecified; R56.9 Unspecified convulsions; J44.9 Chronic obstructive pulmonary disease, unspecified; F32.9 Major depressive disorder, single episode, unspecified; Z88.0 Allergy status to penicillin; Z88.3 Allergy status to other anti-infective agents; Z88.6 Allergy status to analgesic agent; Z95.0 Presence of cardiac pacemaker; Z79.82 Long term (current) use of aspirin; Z90.710 Acquired absence of both cervix and uterus; Z91.018 Allergy to other foods
CPT/HCPCS: 10060; 99283; Z7610

== ENCOUNTER 2022-07-19 08:39 | Emergency (ER) | payer MEDICAID ==
[~2022-07-19] VITALS: Ht 167.6 cm; Wt 143.0 kg
[~2022-07-19 08:39] MED LIST changes: +DOCU-138 MT; +SENN-257 MT
[2022-07-19 08:53] VITALS: BP 133/87
== END 2022-07-19 10:03 | disposition left against medical advice (07) ==
LOC: ER 08:39
DX: Z53.21 Procedure and treatment not carried out due to patient leaving prior to being seen by health care provider (principal)

== ENCOUNTER 2022-08-11 08:37 | Inpatient (IN) | payer MEDICAID ==
[~2022-08-11] VITALS: Ht 167.6 cm; Wt 142.0 kg
[2022-08-11] MEDS ORDERED: METHYLPREDNISOLONE SOD SUCC 125 MG/2 ML VIAL IV STA (09:01)
[2022-08-11] MEDS ORDERED: IPRATROPIUM BROMIDE (0.02%) 0.5MG/2.5ML NEB HHN STA (09:01)
[2022-08-11] MEDS ORDERED: ALBUTEROL (0.083%) 2.5MG/3ML NEB HHN STA (09:01)
[2022-08-11] MEDS ORDERED: IPRATROPIUM BROMIDE (0.02%) 0.5MG/2.5ML NEB HHN NR (12:00)
[2022-08-11] MEDS ORDERED: METHYLPREDNISOLONE SOD SUCC 125 MG/2 ML VIAL IV NR (12:00)
[2022-08-11] MEDS ORDERED: ALBUTEROL (0.083%) 2.5MG/3ML NEB HHN NR (12:00)
[2022-08-11 12:22] LABS: EOSINOPHILS % 2.9 % (0.0-5.0); HEMATOCRIT. 39.6 % (36.0-48.0); HEMOGLOBIN. 12.8 g/dL (12.0-16.0); LYMPHOCYTES % 26.9 % (20.0-50.0); MEAN CORPUSCULAR VOLUME 86.5 fL (81.0-99.0); MEAN PLATELET VOLUME 9.2 fl (7.4-10.4); MONOCYTES % 10.1 % (2.0-8.0); NEUTROPHILS % 59.1 % (40.0-76.0); PLATELET 184 x1000/uL (130-400); RED BLOOD CELL COUNT 4.57 mill/uL (4.2-5.4); RED CELL DISTRIBUTION WIDTH 16.1 % (11.6-14.6)
[2022-08-11 12:34] LABS: CHLORIDE 112 mEq/L (98-107)
[2022-08-11 12:39] LABS: PARTIAL THROMBOPLASTIN TIME 26.2 sec (23.4-31.0); PROTHROMBIN TIME 10.9 sec (9.6-11.0)
[2022-08-11] MEDS ORDERED: ASPIRIN 81MG TABLET PO ONE (13:30)
[2022-08-11] MEDS ORDERED: MORPHINE SULFATE 4 MG/ML CPJ (NOT FOR IM USE) IV ONE (14:15)
[2022-08-11] MEDS ORDERED: HEPARIN 5000 UNITS/ML VIAL IV ONE (14:15)
[2022-08-11] MEDS ORDERED: AZITHROMYCIN 500MG/250ML 250 ML IV ONE (14:15)
[2022-08-11] MEDS ORDERED: ALBUTEROL (0.083%) 2.5MG/3ML NEB HHN ONE (14:15)
[2022-08-11] MEDS ORDERED: HEPARIN 25,000 UNITS PREMIX 250 ML IV ONE (14:15)
[2022-08-11] MEDS ORDERED: HEPARIN BOLUS PRN aPTT 30-44 IV (15:15)
[2022-08-11] MEDS ORDERED: HEPARIN BOLUS PRN aPTT <30 IV (15:15)
[2022-08-11] MEDS ORDERED: HEPARIN 25,000 UNITS PREMIX 250 ML IV SCH (16:00)
[2022-08-11] MEDS ORDERED: HEPARIN 60 UNITS/KG BOLUS IV NR (16:00)
[2022-08-11] MEDS ORDERED: AZITHROMYCIN 500MG/250ML 250 ML IV NR (18:45)
[2022-08-11] MEDS ORDERED: ONDANSETRON HCL 4MG/2ML INJ IV PRN (19:00)
[2022-08-11] MEDS ORDERED: DIPHENHYDRAMINE 50MG/ML VIAL IV PRN (19:00)
[2022-08-11] MEDS ORDERED: CLONIDINE 0.1MG TABLET PO PRN (19:00)
[2022-08-11] MEDS ORDERED: IPRATROPIUM/ALBUTEROL 0.5-3(2.5)MG/3ML NEB HHN PRN (19:00)
[2022-08-11] MEDS: MORPHINE SULFATE 2 MG/ML CPJ (NOT FOR IM USE) IV PRN (20:04)
[2022-08-12] VITALS (9 sets, daily range): BP systolic 96–142; BP diastolic 54–87
[2022-08-12] MEDS: MORPHINE SULFATE 2 MG/ML CPJ (NOT FOR IM USE) IV PRN ×5 (00:37→19:03)
[2022-08-12 05:56] LABS: BASOPHILS % 0.5 % (0.0-2.0); EOSINOPHILS % 0.9 % (0.0-5.0); HEMATOCRIT. 34.9 % (36.0-48.0); HEMOGLOBIN. 11.5 g/dL (12.0-16.0); LYMPHOCYTES % 26.4 % (20.0-50.0); MEAN CORPUSCULAR HEMOGLOBIN 28.1 pg (28.0-32.0); MEAN CORPUSCULAR VOLUME 85.6 fL (81.0-99.0); MEAN PLATELET VOLUME 9.4 fl (7.4-10.4); MONOCYTES % 10.5 % (2.0-8.0); NEUTROPHILS % 61.7 % (40.0-76.0); PLATELET 170 x1000/uL (130-400); RED BLOOD CELL COUNT 4.08 mill/uL (4.2-5.4); RED CELL DISTRIBUTION WIDTH 16.3 % (11.6-14.6)
[2022-08-12 06:18] LABS: CHLORIDE 109 mEq/L (98-107)
[2022-08-12 07:09] LABS: HEPATITIS B SURFACE ANTIGEN NEGATIVE
[2022-08-12] MEDS ORDERED: NALOXONE HCL 0.4MG/ML VIAL IV PRN (09:45)
[2022-08-12] MEDS ORDERED: POTASSIUM CHLORIDE 20MEQ TABLET SR PO NR (10:30)
[2022-08-12] MEDS: CARVEDILOL 3.125 MG TABLET PO SCH ×2 (10:42→20:42)
[2022-08-12] MEDS ORDERED: FUROSEMIDE 40MG TABLET PO NR (11:00)
[2022-08-12] MEDS ORDERED: ALBUTEROL (0.083%) 2.5MG/3ML NEB HHN PRN ×2 (11:45→19:15)
[2022-08-12] MEDS ORDERED: IPRATROPIUM BROMIDE (0.02%) 0.5MG/2.5ML NEB HHN PRN ×2 (11:45→19:15)
[2022-08-12] MEDS ORDERED: IPRATROPIUM/ALBUTEROL 0.5-3(2.5)MG/3ML NEB HHN PRN (19:00)
[2022-08-12] MEDS ORDERED: GUAIFENESIN-DM 200MG-20MG/10ML UDC PO PRN (19:00)
[2022-08-12] MEDS ORDERED: IPRATROPIUM/ALBUTEROL 0.5-3(2.5)MG/3ML NEB HHN SCH (20:00)
[2022-08-12] MEDS: METHYLPREDNISOLONE SOD SUCC 40 MG/ML VIAL IV SCH (20:42)
[2022-08-12] MEDS: ATORVASTATIN CALCIUM 40MG TABLET PO SCH (20:42)
[2022-08-12] MEDS: AMLODIPINE 2.5MG TABLET PO SCH (20:43)
[2022-08-12] MEDS: IPRATROPIUM BROMIDE (0.02%) 0.5MG/2.5ML NEB HHN SCH (21:04)
[2022-08-12] MEDS: ALBUTEROL (0.083%) 2.5MG/3ML NEB HHN SCH (21:05)
[2022-08-12] MEDS ORDERED: KEPP500 MT (21:39)
[2022-08-13] VITALS (7 sets, daily range): BP systolic 99–131; BP diastolic 45–75
[2022-08-13] MEDS: PHENYTOIN SODIUM EXTENDED 100MG CAPSULE PO SCH ×3 (00:29→17:23)
[2022-08-13] MEDS: LEVETIRACETAM 500MG TABLET PO SCH ×3 (00:29→17:23)
[2022-08-13] MEDS: ALBUTEROL (0.083%) 2.5MG/3ML NEB HHN SCH ×6 (01:12→21:22)
[2022-08-13] MEDS: IPRATROPIUM BROMIDE (0.02%) 0.5MG/2.5ML NEB HHN SCH ×6 (01:12→21:22)
[2022-08-13] MEDS: METHYLPREDNISOLONE SOD SUCC 40 MG/ML VIAL IV SCH ×3 (03:56→20:07)
[2022-08-13] MEDS: NITROGLYCERIN OINT 1GM/INCH UDPKT TD SCH ×3 (04:36→20:08)
[2022-08-13 08:14] LABS: BASOPHILS % 0.5 % (0.0-2.0); EOSINOPHILS % 0.2 % (0.0-5.0); HEMATOCRIT. 38.5 % (36.0-48.0); HEMOGLOBIN. 12.5 g/dL (12.0-16.0); LYMPHOCYTES % 15.2 % (20.0-50.0); MEAN CORPUSCULAR HEMOGLOBIN 28.1 pg (28.0-32.0); MEAN CORPUSCULAR VOLUME 86.7 fL (81.0-99.0); MEAN PLATELET VOLUME 9.2 fl (7.4-10.4); MONOCYTES % 4.3 % (2.0-8.0); NEUTROPHILS % 79.8 % (40.0-76.0); PLATELET 182 x1000/uL (130-400); RED BLOOD CELL COUNT 4.44 mill/uL (4.2-5.4)
[2022-08-13 08:43] LABS: CHLORIDE 109 mEq/L (98-107)
[2022-08-13] MEDS: CARVEDILOL 3.125 MG TABLET PO SCH (09:00)
[2022-08-13] MEDS: AMLODIPINE 2.5MG TABLET PO SCH ×2 (09:00→20:07)
[2022-08-13] MEDS: ENOXAPARIN 40MG/0.4ML SYR SUBCUT SCH ×2 (09:01→20:07)
[2022-08-13] MEDS: POTASSIUM CHLORIDE 20MEQ TABLET SR PO SCH (09:01)
[2022-08-13] MEDS: FUROSEMIDE 40MG TABLET PO SCH (09:01)
[2022-08-13] MEDS: MORPHINE SULFATE 2 MG/ML CPJ (NOT FOR IM USE) IV PRN ×2 (15:14→22:14)
[2022-08-13] MEDS: ATORVASTATIN CALCIUM 40MG TABLET PO SCH (20:07)
[2022-08-14] VITALS: BP 122/61
[2022-08-14] MEDS: ALBUTEROL (0.083%) 2.5MG/3ML NEB HHN SCH ×6 (01:44→21:25)
[2022-08-14] MEDS: IPRATROPIUM BROMIDE (0.02%) 0.5MG/2.5ML NEB HHN SCH ×6 (01:44→21:25)
[2022-08-14] MEDS: METHYLPREDNISOLONE SOD SUCC 40 MG/ML VIAL IV SCH ×3 (03:27→19:56)
[2022-08-14 04:00] VITALS: BP 135/83
[2022-08-14] MEDS: MORPHINE SULFATE 2 MG/ML CPJ (NOT FOR IM USE) IV PRN ×5 (04:05→23:08)
[2022-08-14] MEDS: NITROGLYCERIN OINT 1GM/INCH UDPKT TD SCH ×3 (05:21→21:23)
[2022-08-14 08:00] VITALS: BP 138/70
[2022-08-14] MEDS: PHENYTOIN SODIUM EXTENDED 100MG CAPSULE PO SCH ×2 (08:54→18:08)
[2022-08-14] MEDS: POTASSIUM CHLORIDE 20MEQ TABLET SR PO SCH (08:54)
[2022-08-14] MEDS: AMLODIPINE 2.5MG TABLET PO SCH ×2 (08:54→19:54)
[2022-08-14] MEDS: NEBIVOLOL HCL 5 MG TABLET PO SCH (08:54)
[2022-08-14] MEDS: ENOXAPARIN 40MG/0.4ML SYR SUBCUT SCH ×2 (08:54→19:55)
[2022-08-14] MEDS: FUROSEMIDE 40MG TABLET PO SCH (08:54)
[2022-08-14] MEDS: LEVETIRACETAM 500MG TABLET PO SCH ×2 (08:55→18:08)
[2022-08-14] MEDS ORDERED: FUROSEMIDE 40MG/4ML VIAL IVP NR (11:00)
[2022-08-14 12:00] VITALS: BP 122/59
[2022-08-14] MEDS: LOSARTAN POTASSIUM 25 MG TABLET PO SCH (12:38)
[2022-08-14 16:00] VITALS: BP 115/84
[2022-08-14] MEDS ORDERED: POTASSIUM CHLORIDE 20MEQ TABLET SR PO NR (18:00)
[2022-08-14 19:54] VITALS: BP 113/64
[2022-08-14] MEDS: ATORVASTATIN CALCIUM 40MG TABLET PO SCH (19:54)
[2022-08-15] VITALS: BP 106/57
[2022-08-15] MEDS: ALBUTEROL (0.083%) 2.5MG/3ML NEB HHN SCH ×5 (01:32→15:15)
[2022-08-15] MEDS: IPRATROPIUM BROMIDE (0.02%) 0.5MG/2.5ML NEB HHN SCH ×5 (01:32→15:15)
[2022-08-15] MEDS: METHYLPREDNISOLONE SOD SUCC 40 MG/ML VIAL IV SCH ×2 (03:16→12:05)
[2022-08-15] MEDS: MORPHINE SULFATE 2 MG/ML CPJ (NOT FOR IM USE) IV PRN ×3 (03:18→12:05)
[2022-08-15 03:51] VITALS: BP 105/57
[2022-08-15] MEDS: NITROGLYCERIN OINT 1GM/INCH UDPKT TD SCH ×2 (06:15→14:57)
[2022-08-15 06:54] LABS: BASOPHILS % 0.3 % (0.0-2.0); EOSINOPHILS % 0.2 % (0.0-5.0); HEMATOCRIT. 36.9 % (36.0-48.0); HEMOGLOBIN. 11.9 g/dL (12.0-16.0); LYMPHOCYTES % 15.4 % (20.0-50.0); MEAN CORPUSCULAR HEMOGLOBIN 27.9 pg (28.0-32.0); MEAN CORPUSCULAR VOLUME 86.4 fL (81.0-99.0); MEAN PLATELET VOLUME 9.4 fl (7.4-10.4); MONOCYTES % 6.1 % (2.0-8.0); PLATELET 180 x1000/uL (130-400); RED BLOOD CELL COUNT 4.27 mill/uL (4.2-5.4); RED CELL DISTRIBUTION WIDTH 16.6 % (11.6-14.6)
[2022-08-15 07:43] LABS: CHLORIDE 105 mEq/L (98-107)
[2022-08-15 08:00] VITALS: BP 117/94
[2022-08-15] MEDS: POTASSIUM CHLORIDE 20MEQ TABLET SR PO SCH (09:01)
[2022-08-15] MEDS: PHENYTOIN SODIUM EXTENDED 100MG CAPSULE PO SCH (09:01)
[2022-08-15] MEDS: AMLODIPINE 2.5MG TABLET PO SCH (09:01)
[2022-08-15] MEDS: LEVETIRACETAM 500MG TABLET PO SCH (09:01)
[2022-08-15] MEDS: LOSARTAN POTASSIUM 25 MG TABLET PO SCH (09:02)
[2022-08-15] MEDS: NEBIVOLOL HCL 5 MG TABLET PO SCH (09:03)
[2022-08-15] MEDS: FUROSEMIDE 40MG TABLET PO SCH (09:03)
[2022-08-15] MEDS: ENOXAPARIN 40MG/0.4ML SYR SUBCUT SCH (09:03)
[2022-08-15 12:00] VITALS: BP 122/81
[2022-08-15 13:42] VITALS: BP 119/81
[2022-08-15] MEDS ORDERED: TUSSL MT (14:17)
== END 2022-08-15 16:18 | disposition home or self-care (01) | DRG 194 ==
LOC: ER 08:37 → MICUSO 14:53 → EDBEDREQTM 15:07 → EDBEDREQ 15:07 → CANRESERV 16:02 → ENRESERV 16:02 → EDBEDREQSVC 16:37 → 3WST 23:01
PROVIDERS: ADMIT Internal Medicine; ATTEND Internal Medicine
DX: I11.0 Hypertensive heart disease with heart failure (principal); J96.01 Acute respiratory failure with hypoxia; E44.1 Mild protein-calorie malnutrition; J44.1 Chronic obstructive pulmonary disease with (acute) exacerbation; I50.43 Acute on chronic combined systolic (congestive) and diastolic (congestive) heart failure; I42.8 Other cardiomyopathies; Z68.43 Body mass index [BMI] 50.0-59.9, adult; E11.9 Type 2 diabetes mellitus without complications; E66.01 Morbid (severe) obesity due to excess calories; E87.6 Hypokalemia; F32.A Depression, unspecified; Z20.822 Contact with and (suspected) exposure to COVID-19; G40.909 Epilepsy, unspecified, not intractable, without status epilepticus; I25.10 Atherosclerotic heart disease of native coronary artery without angina pectoris; E78.00 Pure hypercholesterolemia, unspecified; G89.4 Chronic pain syndrome; Z87.891 Personal history of nicotine dependence; Z95.810 Presence of automatic (implantable) cardiac defibrillator; Z96.659 Presence of unspecified artificial knee joint; Z86.73 Personal history of transient ischemic attack (TIA), and cerebral infarction without residual deficits; Z88.0 Allergy status to penicillin; Z86.16 Personal history of COVID-19; Z88.6 Allergy status to analgesic agent; Z79.899 Other long term (current) drug therapy; Z90.710 Acquired absence of both cervix and uterus; Z91.048 Other nonmedicinal substance allergy status
CPT/HCPCS: 36415; 71045; 80048; 80053; 83880; 84484; 85025; 86803; 87340; 87426; 87804; 93005; 93306; 93970; 94640; 99291; C9803; J0456; J1644; J1650; J1940; J2270; J2920; J2930

== ENCOUNTER 2022-10-09 05:48 | Inpatient (IN) | payer MEDICAID ==
[~2022-10-09] VITALS: Ht 167.6 cm; Wt 142.9 kg
[~2022-10-09 05:48] MED LIST changes: -ENAL5TAB21 PO; -FURO-151 MT; +KEPP500 MT; -KEPP500 PO; +TUSSL MT
[2022-10-09] MEDS ORDERED: IPRATROPIUM/ALBUTEROL 0.5-3(2.5)MG/3ML NEB HHN ONE (06:45)
[2022-10-09] MEDS ORDERED: METHYLPREDNISOLONE SOD SUCC 125 MG/2 ML VIAL IV ONE (06:45)
[2022-10-09] MEDS ORDERED: ONDANSETRON HCL 4MG/2ML INJ IV ONE (08:30)
[2022-10-09] MEDS ORDERED: MORPHINE SULFATE 4 MG/ML CPJ (NOT FOR IM USE) IV ONE ×2 (08:30→11:30)
[2022-10-09] MEDS ORDERED: RACEPINEPHRINE 2.25% 0.5ML NEB VIAL HHN ONE (08:30)
[2022-10-09 08:54] LABS: BASOPHILS % 0.5 % (0.0-2.0); EOSINOPHILS % 0.9 % (0.0-5.0); HEMATOCRIT. 38.3 % (36.0-48.0); HEMOGLOBIN. 12.4 g/dL (12.0-16.0); LYMPHOCYTES % 21.6 % (20.0-50.0); MEAN CORPUSCULAR HEMOGLOBIN 28.2 pg (28.0-32.0); MEAN PLATELET VOLUME 8.8 fl (7.4-10.4); MONOCYTES % 7.1 % (2.0-8.0); NEUTROPHILS % 69.9 % (40.0-76.0); PLATELET 207 x1000/uL (130-400); RED CELL DISTRIBUTION WIDTH 16.4 % (11.6-14.6)
[2022-10-09 09:00] LABS: CHLORIDE 113 mEq/L (98-107)
[2022-10-09] MEDS ORDERED: ENOXAPARIN 120MG/0.8ML SYR SUBCUT ONE (09:30)
[2022-10-09] MEDS ORDERED: FUROSEMIDE 40MG/4ML VIAL IVP ONE (11:15)
[2022-10-09 15:05] VITALS: BP 106/63
[2022-10-09] MEDS ORDERED: ACETAMINOPHEN 325MG TABLET PO PRN (16:00)
[2022-10-09] MEDS ORDERED: ONDANSETRON HCL 4MG/2ML INJ IV PRN (16:00)
[2022-10-09] MEDS: TRAMADOL 50MG TABLET PO PRN ×2 (16:15→21:42)
[2022-10-09 20:00] VITALS: BP 120/60
[2022-10-09] MEDS: PHENYTOIN SODIUM EXTENDED 100MG CAPSULE PO SCH (21:31)
[2022-10-09] MEDS: LEVETIRACETAM 500MG TABLET PO SCH (21:31)
[2022-10-09] MEDS: FUROSEMIDE 40MG TABLET PO SCH (21:40)
[2022-10-09] MEDS ORDERED: POTASSIUM CHLORIDE 20MEQ TABLET SR PO NR (23:15)
[2022-10-09] MEDS ORDERED: IPRATROPIUM/ALBUTEROL 0.5-3(2.5)MG/3ML NEB HHN NR (23:15)
[2022-10-09] MEDS: METHYLPREDNISOLONE SOD SUCC 40 MG/ML VIAL IV SCH (23:41)
[2022-10-10] VITALS: BP 117/75
[2022-10-10 04:00] VITALS: BP 99/61
[2022-10-10] MEDS: TRAMADOL 50MG TABLET PO PRN ×4 (04:00→21:33)
[2022-10-10] MEDS: METHYLPREDNISOLONE SOD SUCC 40 MG/ML VIAL IV SCH ×3 (06:23→21:33)
[2022-10-10 08:00] VITALS: BP 147/80
[2022-10-10] MEDS: ENOXAPARIN 40MG/0.4ML SYR SUBCUT SCH ×2 (08:53→21:27)
[2022-10-10] MEDS: LEVETIRACETAM 500MG TABLET PO SCH ×2 (08:54→21:26)
[2022-10-10] MEDS: PHENYTOIN SODIUM EXTENDED 100MG CAPSULE PO SCH ×2 (08:54→17:07)
[2022-10-10] MEDS: FUROSEMIDE 40MG TABLET PO SCH ×2 (08:54→21:26)
[2022-10-10] MEDS: IPRATROPIUM/ALBUTEROL 0.5-3(2.5)MG/3ML NEB HHN SCH ×3 (09:49→19:48)
[2022-10-10 12:00] VITALS: BP 138/84
[2022-10-10 16:00] VITALS: BP 97/67
[2022-10-10] MEDS ORDERED: NALOXONE HCL 0.4MG/ML VIAL IV PRN (16:15)
[2022-10-10 20:00] VITALS: BP 115/61
[2022-10-10] MEDS: FAMOTIDINE 20MG TABLET PO SCH (21:26)
[2022-10-11] VITALS: BP 112/74
[2022-10-11] MEDS: IPRATROPIUM BROMIDE (0.02%) 0.5MG/2.5ML NEB HHN SCH ×4 (02:01→22:19)
[2022-10-11] MEDS: ALBUTEROL (0.083%) 2.5MG/3ML NEB HHN SCH ×4 (02:01→22:19)
[2022-10-11] MEDS: TRAMADOL 50MG TABLET PO PRN ×4 (03:26→23:12)
[2022-10-11 04:00] VITALS: BP 98/67
[2022-10-11] MEDS: METHYLPREDNISOLONE SOD SUCC 40 MG/ML VIAL IV SCH ×3 (06:17→23:12)
[2022-10-11 07:17] LABS: BASOPHILS % 0.4 % (0.0-2.0); HEMATOCRIT. 38.4 % (36.0-48.0); HEMOGLOBIN. 12.5 g/dL (12.0-16.0); LYMPHOCYTES % 14.2 % (20.0-50.0); MEAN CORPUSCULAR HEMOGLOBIN 28.4 pg (28.0-32.0); MEAN PLATELET VOLUME 9.4 fl (7.4-10.4); MONOCYTES % 5.5 % (2.0-8.0); NEUTROPHILS % 79.9 % (40.0-76.0); PLATELET 229 x1000/uL (130-400); RED BLOOD CELL COUNT 4.42 mill/uL (4.2-5.4); RED CELL DISTRIBUTION WIDTH 16.7 % (11.6-14.6)
[2022-10-11 08:03] VITALS: BP 105/56
[2022-10-11 08:23] LABS: CHLORIDE 104 mEq/L (98-107)
[2022-10-11] MEDS: FUROSEMIDE 40MG TABLET PO SCH ×2 (08:40→21:13)
[2022-10-11] MEDS: LEVETIRACETAM 500MG TABLET PO SCH ×2 (08:41→21:13)
[2022-10-11] MEDS: PHENYTOIN SODIUM EXTENDED 100MG CAPSULE PO SCH ×2 (08:42→17:14)
[2022-10-11] MEDS: ENOXAPARIN 40MG/0.4ML SYR SUBCUT SCH ×2 (08:45→21:14)
[2022-10-11] MEDS ORDERED: P20 MT (10:55)
[2022-10-11 11:21] VITALS: BP 130/85
[2022-10-11 15:26] VITALS: BP 115/67
[2022-10-11 16:26] LABS: BG BASE EXCESS 5.5 mmol/L (-2.0-2.0); BG CARBOXYHEMOGLOBIN 0.2 % (0.5-1.5); BG DEOXYHEMOGLOBIN 3.7 % (0.0-5.0); BG HCO3 ACT 29.5 mmol/L (22.0-26.0); BG METHEMOGLOBIN 0.1 % (0.0-1.5); BG OXYGEN SATURATION 96.3 % (92.0-98.5); BG PH 7.475 (7.350-7.450); BG PO2 74.9 mmHg (75.0-100.0); BG SAMPLE SITE RIGHT RADIAL; BG TOTAL HEMOGLOBIN 13.7 g/dL (12.0-18.0); BG VENT MODE ROOM AIR
[2022-10-11 20:00] VITALS: BP 109/72
[2022-10-11] MEDS: FAMOTIDINE 20MG TABLET PO SCH (21:13)
[2022-10-12] VITALS: BP_SYST 11; BP_SYST 110; BP_DIAS 65
[2022-10-12] MEDS: ALBUTEROL (0.083%) 2.5MG/3ML NEB HHN SCH ×2 (02:54→10:36)
[2022-10-12] MEDS: IPRATROPIUM BROMIDE (0.02%) 0.5MG/2.5ML NEB HHN SCH ×2 (02:54→10:36)
[2022-10-12 04:00] VITALS: BP 107/62
[2022-10-12] MEDS: TRAMADOL 50MG TABLET PO PRN ×2 (05:23→11:56)
[2022-10-12 08:00] VITALS: BP 113/68
[2022-10-12] MEDS: METHYLPREDNISOLONE SOD SUCC 40 MG/ML VIAL IV SCH (08:39)
[2022-10-12] MEDS: ENOXAPARIN 40MG/0.4ML SYR SUBCUT SCH (08:40)
[2022-10-12] MEDS: FUROSEMIDE 40MG TABLET PO SCH (08:40)
[2022-10-12] MEDS: LEVETIRACETAM 500MG TABLET PO SCH (08:40)
[2022-10-12] MEDS: PHENYTOIN SODIUM EXTENDED 100MG CAPSULE PO SCH (08:41)
[2022-10-12 12:00] VITALS: BP 136/84
[2022-10-12 12:12] VITALS: BP 113/68
== END 2022-10-12 14:10 | disposition home or self-care (01) | DRG 194 ==
LOC: ER 05:48 → 7WST 12:51 → EDBEDREQ 13:00 → EDBEDREQTM 13:00 → ENRESERV 13:41
PROVIDERS: ADMIT Internal Medicine; ATTEND Internal Medicine
DX: I11.0 Hypertensive heart disease with heart failure (principal); I21.4 Non-ST elevation (NSTEMI) myocardial infarction; E44.1 Mild protein-calorie malnutrition; I42.9 Cardiomyopathy, unspecified; I50.23 Acute on chronic systolic (congestive) heart failure; J44.1 Chronic obstructive pulmonary disease with (acute) exacerbation; Z68.43 Body mass index [BMI] 50.0-59.9, adult; E66.01 Morbid (severe) obesity due to excess calories; E78.00 Pure hypercholesterolemia, unspecified; Z96.659 Presence of unspecified artificial knee joint; E87.6 Hypokalemia; Z20.822 Contact with and (suspected) exposure to COVID-19; G40.909 Epilepsy, unspecified, not intractable, without status epilepticus; Z90.710 Acquired absence of both cervix and uterus; Z88.0 Allergy status to penicillin; Z86.73 Personal history of transient ischemic attack (TIA), and cerebral infarction without residual deficits; Z88.6 Allergy status to analgesic agent; Z91.048 Other nonmedicinal substance allergy status; Z88.1 Allergy status to other antibiotic agents; Z88.8 Allergy status to other drugs, medicaments and biological substances; Z91.018 Allergy to other foods; Z79.82 Long term (current) use of aspirin; Z79.899 Other long term (current) drug therapy; Z90.49 Acquired absence of other specified parts of digestive tract; Z95.0 Presence of cardiac pacemaker; Z71.3 Dietary counseling and surveillance
CPT/HCPCS: 36415; 36600; 71045; 80048; 80053; 82375; 82805; 83880; 84484; 85025; 87426; 87804; 93005; 94640; 99291; C9803; J1650; J1940; J2270; J2405; J2920; J2930